=== PATIENT | female | born 1970 | race Caucasian/White ===

== ENCOUNTER 2022-10-02 15:24 | Outpatient (OUT) | payer OTHER, SELFPAY | END 2022-10-02 15:25 | LOC: VC 15:24 | PROVIDERS: PCP Radiology Diagnostic Radiology; Visit Provider Radiology Diagnostic Radiology | DX: I83.813 Varicose veins of bilateral lower extremities with pain (principal) ==

== ENCOUNTER 2023-06-27 10:33 | Outpatient (OUT) | payer OTHER, SELFPAY ==
--- NOTE | 2023-06-27 | ECG_ITS ---
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
== END 2023-06-27 10:34 | disposition home or self-care (01) ==
PROVIDERS: PCP Family Medicine
DX: Z01.810 Encounter for preprocedural cardiovascular examination (principal)
CPT/HCPCS: 93005

== ENCOUNTER 2023-09-27 20:28 | Outpatient (OUT) | payer OTHER, SELFPAY ==
--- OUTSIDE RECORDS SUMMARY | 2023-09-27 20:34 | XMS_ITS ---
Patient Summarization (C-CDA 2.1 CCD) Created on: September 27, 2023 VISHALMAGO TUTTLE : 1970 Sex: Female Author Organization Sample organization Care Team Providers Care Pyridine Recovery Operator Name Role Phone MARCIANO, DR ORTIZ Consulting Unavailable HEMELAMIN, DR ORTIZ Attending Unavailable MARCIANO, DR ORTIZ Admitting Unavailable MARCIANO, DR ORTIZ Primary Care Unavailable Negrita Bowles Unavailable Diane Marie Unavailable Marciano HOGUE, Godfrey Cade Primary Care Provider GODFREY TARIQ Primary Care Unavailab RICHARD Spears Referring Unavailable RICHARD WALKER Attending Unavailable Godfrey Tariq MD Primary Care Provider Yousif Duarte Primary Care Physician Yousif Duarte Attending Unavailable Yousif Duarte Admitting Unavailable GODFREY TARIQ Attending Unavailable GODFREY TARIQ Referring Unavailable YOUSIF DUARTE Attending Unavailable YOUSIF DUARTE Referring Unavailable YOUSIF DUARTE Attending Unavailable YOUSIF DUARTE Attending Unavailable YOUSIF DUARTE Attending Unavailable GODFREY TARIQ Attending Unavailable YOUSIF DUARTE Referring Unavailable YOUSIF DUARTE Attending Unavailable GODFREY TARIQ Attending Unavailable ASIM BRITTON Attending Unavailable ASIM BRITTON Referring Unavailable YOUSIF DUARTE Attending Unavailable GODFREY TARIQ Attending Unavailable YOUSIF DUARTE Attending Unavailable YOUSIF DUARTE Attending Unavailable YOUSIF DUARTE Attending Unavailable Allergies Allergy Classification Reported Allergen(s) Allergy Type Date of Onset Reaction(s) Facility (2 sources) Penicillins; Translations: [PENICILLINS] Drug allergy (disorder) 4 [facility] Repository (2 sources) penicillAMINE Drug Allergy Unknown Friday Other (2 sources) Penicillins Drug Allergy 7 Hives [facility] (3 sources) Amoxicillin Drug Allergy 3 Hives [facility] Healthcare (3 sources) Penicillin G Drug Allergy 3 Unknown [facility] Encounters Encounter Date Encounter Type Care Provider Facility Start: 09-07-2023 End: 09-07-2023 ambulatory YOUSIF DUARTE Not Available Start: 08-24-2023 End: 08-24-2023 ambulatory YOUSIF DUARTE Not Available Start: 08-10-2023 End: 08-10-2023 ambulatory YOUSIF DUARTE Not Available Start: 07-27-2023 End: 07-27-2023 ambulatory YOUSIF DUARTE Not Available Start: 07-17-2023 End: 07-18-2023 ambulatory ASIM BRITTON Not Available Start: 07-11-2023 End: 07-11-2023 Lab Drop off Yousif Duarte [facility] Start: 07-11-2023 End: 07-12-2023 ambulatory Yousif Duarte Facility:[facility] Start: 07-02-2023 End: 07-02-2023 ambulatory GODFREY TARIQ Not Available Start: 06-28-2023 End: 06-28-2023 ambulatory YOUSIF DUARTE Not Available Start: 06-27-2023 End: 06-28-2023 ambulatory YOUSIF DUARTE Not Available Start: 06-20-2023 End: 06-20-2023 ambulatory GODFREY TARIQ [facility] Work Phone: Start: 06-20-2023 End: 06-20-2023 Patient encounter procedure [facility] Work Phone: Start: 06-12-2023 End: 06-12-2023 ambulatory YOUSIF DUARTE Not Available Start: 06-12-2023 End: 06-12-2023 Office outpatient visit 15 minutes Yousif Duarte DPM Work Phone: [facility] Comment on above: 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); Posterior tibial tendinitis of left leg Start: 06-12-2023 Chart abstracting Yousif lin DPM Work Phone: [facility] Start: 05-30-2023 End: 05-30-2023 ambulatory YOUSIF Kang DOMO Not Available Start: 05-17-2023 End: 05-17-2023 ambulatory YOUSIF DUARTE Not Available Start: 05-10-2023 End: 05-11-2023 ambulatory YOUSIF Kang DOMO Not Available Start: 05-03-2023 End: 05-03-2023 ambulatory YOUSIF DUARTE Not Available Start: 04-26-2023 End: 04-27-2023 ambulatory GODFREY BUCKNERLAMIN Not Available Start: 04-25-2023 End: 04-25-2023 ambulatory GODFREY TARIQ Not Available Start: 04-19-2023 End: 04-19-2023 ambulatory GODFREY TARIQ Not Available Start: 07-10-2022 Telephone encounter Richard Walker MD Work Phone: Radiation Oncology Comment on above: Future Appointment; Care Coordination Start: 07-10-2022 End: 07-10-2022 ambulatory GODFRYE TARIQ Facility:[facility] Start: 07-10-2022 End: 07-10-2022 Patient encounter procedure Richard Walker MD Work Phone: Radiation Oncology Comment on above: Malignant neoplasm o f central portion of right breast in female, estrogen receptor positive (HCC) (Primary Dx) Start: 03-22-2021 End: 03-22-[address] GODFREY TARIQ Facility: Start: 03-21-2021 End: 03-21-2021 ambulatory Diane Marie Other Friday Other Start: 03-21-2021 Office outpatient vi sit 15 minutes Diane Marie [facility] Start: 03-11-2021 End: 03-11-2021 ambulatory Negrita Bowles Other Friday Other Start: 03-11-2021 Office outpatient ne w 20 minutes Negrita Bowles [facility] Immunizations Immunization Date Immunization Notes Care Provider Kiesha nieves 02-08-2015 influenza, injectabl e, quadrivalent, preservative free Yousif Duarte DPM Work Phone: [facility] 02-08-2015 influenza virus vacc ine, unspecified formulation Yousif Duarte DPM Work Phone: [facility] 05-24-2014 influenza, injectabl e, quadrivalent, contains preservative Yousif Duarte DPM Work Phone: [facility] Healthcare Medications Current Medications Medication Drug Class(es) Dates Sig (Normalized) Sig (Original) ALPRAZolam 0.25 mg oral tablet (3 sources) Benzodiazepine Start: 04-19-2023 take 1 tablet by mouth in the morning, then take 1 tablet by mouth in the evening, then take 1 tablet by mouth at bedtime ALPRAZolam (Xanax) 0.25 MG tablet Indications: Anxiety as acute reaction to exceptional stress (CMS/HCC) Take 1 tablet (0.25 mg) by mouth in the morning and 1 tablet (0.25 mg) in the evening and 1 tablet (0.25 mg) before bedtime. Do all this for 10 days. 30 tablet 0 04/19/2023 Active Ascorbic Acid (1 source) Vitamin C Vitamin C Active biotin 5 mg oral capsule (1 source) Start: 06-20-2023 take 5 mg by mouth once daily Biotin Active 5 MG PO Daily June 20, 2023 12:00am Hair Skin Nails - (2 sources) Hair Skin Nails - as directed Orally Active Multivitamin preparation (3 sources) Start: 06-20-2023 take 1 tablet by mouth once daily Multivitamin Active 1 TAB PO Daily June 20, 2023 12:00am take 1 tablet by mouth once sofi y Multivitamin - 1 tablet Orally Once a day Active Completed/Discontinued Medications Medication Drug Class(es) Dates Sig (Normalized) Sig (Original) fluorouracil 50 mg/ml topical cream (2 sources) Nucleoside Metabolic Inhibitor Fluorouracil 5 % cream Apply 1 application to affected area as needed. 0 Active Comment on above: Apply 1 application to affected area as needed. melatonin 10 mg oral capsule (2 sources) End: 07-18-2022 melatonin 10 mg cap Take by mouth. 0 07/18/2022 Discontinued (Discontinued by another Health Care Provider) Comment on above: Take by mouth. multivit-min/iron/foli c/[id number] (HAIR, SKIN AND NAILS ADVANCED ORAL) (2 sources) multivit-min/iro n /folic/mwi722 (HAIR, SKIN AND NAILS ADVANCED ORAL) Take by mouth. 0 Active Comment on above: Take by mouth. multivitamin tablet (2 sources) take 1 tablet by mouth once daily multivitamin tablet Take 1 tablet by mouth once daily. 0 Active Comment on above: Take 1 tablet by forest th once daily. Mupirocin (2 sources) RNA Synthetase Inhibitor Antibacterial Start: 12-07-2013 Bactroban 2% as directed applied topically twice a day for 10 days Nov, Not-Taking predniSONE 20 mg oral tablet (2 sources) Start: 12-07-2013 take 1 tablet by mouth every twelve hours predniSONE 20 MG 1 tablet with food or milk Orally Twice a day for 8 days Nov, Not-Taking sulfamethoxazole 800 mg / trimethoprim 160 mg oral tablet (2 sources) Dihydrofolate Reductase Inhibitor Antibacterial, Sulfonamide Antimicrobial Start: 12-07-2013 take 1 tablet by mouth every twelve hours Bactrim DS 800-160 MG 1 tablet Orally Twice a day for 10 day(s) Nov, Not-Taking VIT A/VIT C/VIT E/ZINC/COPPER (PRESERVISION AREDS ORAL) (2 sources) VIT A/VIT C/VIT E/ZINC/COPPER (PRESERVISION AREDS ORAL) Take by mouth twice daily. 0 Active Comment on above: Take by mouth twice daily. Payers Date Payer Category Payer Private Health Insurance [facility] [employer] [id number] 2022-Present [phone] [facility] [address] [place] [address] PPO [id number] 2022 Unknown [id number] 2022 Unknown [employer] [id number] 2022-Present [phone] [address] [address] [place] [address] [id number]. [id number] 1970 Unknown [id number] 2.16.840.1.893933.3.579. 2.593 1970 Unknown [id number] 2.16.840.1.051849.3.579. 2.727 1970 Unknown [id number] 2.16.840.1.460829.3.579. 2.1258 1970 Unknown [id number] 2.16.840.1.046476.3.579. 2.1258 1970 Unknown [id number] 2.16.840.1.580388.3.579. 2.1258 1968 Unknown [id number] 2.16.840.1.037283.3.579. 2.1258 1968 Unknown [id number] 2.16.840.1.530506.3.579. 2.1258 1968 Unknown [id number] 2.16.840.1.539683.3.579. 2.1258 1968 Unknown [id number] 2.16.840.1.220448.3.579. 2.1258 1968 Unknown [id number] 2.16.840.1.988771.3.579. 2.1258 1968 Unknown [id number] 2.16.840.1.733766.3.579. 2.1258 1968 Unknown [id number] 2.16.840.1.254240.3.579. 2.125 1968 Unknown [id number] 2.16.840.1.201429.3.579. 2.1258 1968 Unknown [id number] 2.16.840.1.125482.3.579. 2.1258 1968 Unknown [id number] 2.16.840.1.586632.3.579. 2.1258 1968 Unknown [id number] 2.16.840.1.592880.3.579. 2.1259 1968 Unknown [id number] 2.16.840.1.859753.3.579. 2.9 1968 Unknown [id number] 2.16.840.1.293631.3.579. 2.1259 1968 Unknown [id number] 2.16.840.1.316716.3.579. 2.9 1968 Unknown [id number] 2.16.840.1.553941.3.579. 2.1259 1959 Unknown [id number] Self-pay Self Pay [id number] Plan of Treatment Date Care Activity Detail Author Start: 06-19-2032 Screening for malign ant neoplasm of colon [facility] Start: 01-07-2025 Screening for malign ant neoplasm of cervix [facility] Start: 07-06-2023 End: 08-09-2023 Diagnostic mammography computer-aided detcj bi [facility] Radiology Routine Malignant neoplasm of central portion of right breast in female, estrogen receptor positive (HCC) Expected: 07/06/2023, Expires: 08/09/2023 [facility] Work Phone: Comment on above: Expected: 07/06/2023 , Expires: 08/09/2023 Start: 07-05-2023 Mammography MAMMOGRAM [facility] Start: 06-12-2023 End: 06-12-2023 Patient encounter procedure 06/12/2023 3:30 PM EST Office Visit [facility] [address] [place] [id number] Yousif Duarte DPM [address] [address] [facility] Start: 12-29-2022 Influenza vaccination Influenza Vacc ine (#1) [facility] Start: 04-30-2022 DEPRESSION ASSESSMENT DEPRESSION ASS ESSMENT [facility] Start: 12-29-2021 Influenza vaccination INFLUENZA (#1) [facility] Start: 10-15-2020 COVID-19 VACCINE (3 - Booster for Moderna series) COVID-19 VACCINE (3 - Booster for Moderna series) [facility] Start: 2018 SHINGRIX VACCINE (1 of 2) SHINGRIX VACCINE (1 of 2) [facility] Start: 2013 COLOGUARD (FIT-DNA) COLOGUARD (FIT-D NA) [facility] Start: 2013 Colonoscopy COLONOSCOPY [facility] Start: 2013 COLORECTAL CANCER SCREENING COLORECTAL CANCER SCREENING [facility] Start: [address] COLONOGRAPHY [facility] Start: 2013 DIABETES SCREEN DIABETES SCREEN [facility] Start: 2013 FECAL OCCULT BLOOD FECAL OCCULT BLOO D [facility] Start: 2013 LIPID SCREEN LIPID SCREEN [facility] Start: 2013 SIGMOIDOSCOPY SIGMOIDOSCOPY [facility] Start: 1998 HPV TESTING HPV TESTING [facility] Start: 1989 PAP TESTING PAP TESTING [facility] Start: 1989 Screening for malign ant neoplasm of cervix Pap Smear [facility] Start: 1987 Urine microalbumin profile DTAP,TDAP,TD (1 - Tdap) [facility] Start: 1986 HEPATITIS C SCREENING HEPATITIS C SC DUNCAN [facility] Start: 1986 HIV SCREENING HIV SCREENING [facility] Start: 1968 HEPATITIS B (1 of 3 - 3-dose series) HEPATITIS B (1 of 3 - 3-dose series) [facility] Start: 1970 Screening for malign ant neoplasm of colon [facility] Healthcare Problems Active Problems Problem Classification Problem Date Documented Date Episodic/Chronic Cancer of breast (4 sources) Malignant neoplasm of central part of female breast; Translations: [Malignant neoplasm of central portion of right female breast] Onset: 01-10-2017 01-10-2017 Chronic Immunizations and screening for infectious disease (3 sources) Encounter for immunization; Translations: [Contact with and (suspected) exposure to other viral communicable diseases] Onset: 03-21-2021 Resolved: 03-21-2021 Episodic Mood disorders (1 source) Depressive disorder; Translations: [Depression] 06-20-2023 Chronic Other acquired deformities (3 sources) Scoliosis deformity of spine; Translations: [Scoliosis, unspecified] Onset: 04-19-2023 04-19-2023 Chronic Other congenital anomalies (3 sources) Gorlin syndrome; 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, not elsewhere classified] Onset: 04-19-2023 04-19-2023 Chronic Other congenital anomalies (2 sources) Accessory left tarsal navicular bone; Translations: [Other congenital malformations of lower limb(s), including pelvic girdle] 06-12-2023 Chronic Other connective tissue disease (2 sources) Tendinitis of left posterior tibial tendon; Translations: [Posterior tibial tendinitis, left leg] 06-12-2023 Episodic Other diseases of veins and lymphatics (3 sources) Vascular insufficiency; Translations: [Venous insufficiency (chronic) (peripheral)] Onset: 04-19-2023 04-19-2023 Episodic Other lower respiratory disease (3 sources) Nodule of lung; Translations: [Solitary pulmonary nodule] Onset: 04-19-2023 04-19-2023 Episodic Other non-epithelial cancer of skin (1 source) Basal cell carcinoma of skin; Translations: [Basal cell carcinoma of skin, unspecified] 06-20-2023 Episodic Other nutritional; endocrine; and metabolic disorders (3 sources) Overweight; Translations: [Overweight] Onset: 04-19-2023 04-19-2023 Episodic Other screening for suspected conditions (not mental disorders or infectious disease) (3 sources) Mammography abnormal; Translations: [Other abnormal and inconclusive findings on diagnostic imaging of breast] Onset: 04-19-2023 04-19-2023 Episodic Residual codes; unclassified (1 source) Other specified postprocedural states; Translations: [History of lumpectomy of right breast] 06-20-2023 Episodic Viral infection (5 sources) COVID-19; Translations: [COVID-19] Onset: 03-21-2021 Resolved: 03-21-2021 Past or Other Problems Problem Classification Problem Date Documented Date Episodic/Chronic Other connective tissue disease (1 source) Pain in left finger(s) Onset: Resolved: Episodic Sprains and strains (1 source) Sprain of metacarpophalangeal joint of left index finger, initial encounter Onset: Resolved: 11-12-202 1 Episodic Procedures Date Procedure Procedure Detail Performing Clinician Start: 06-20-2023 POC COVID/FLU/RSV Start: 07-04-2022 Mammography Richard Walker MD Work Phone: Start: 06-19-2022 Colonoscopy Yousif lin DPKristin Work Phone: Results Test Name Value Interpretation Reference Range Facility Physician Orderon 07-11-2023 Physician Order [id number] #1.00TIFF Normal [facility] Physician Order [id number] #1.00TIFF Normal [facility] XR CHEST 2 VIEWSon XR CHEST 2 VIEWS CLINICAL HISTORY: pre-op COMPARISON: FINDINGS: The cardiomediastinal silhouette is unremarkable. The lungs are free of infiltrates effusions or consolidations. The bones and soft tissues are within normal limits. IMPRESSION: There are no acute cardiopulmonary changes. ELECTRONICALLY SIGNED BY: Keith Weir MD Normal Not Available Laboratory - Microbiology an d Antimicrobial susceptibilityOrdered By: Negrita Bowles on 06-20-2023 SARS-CoV-2 (COVID-19) RNA MANOJ+probe Ql (Unsp spec) [facility] MR FOOT LEFT WO IV CONTRASTo n 05-03-2023 MR FOOT LEFT WO IV CONTRAST HISTORY: Left foot pain. Concern for navicular fracture, PTT tendon tear, versus accessory navicular. TECHNIQUE: Routine MRI of the foot left COMPARISON: Radiographs 04/26/2023. RESULT: Bone Marrow: No evidence of fracture, osteomyelitis or marrow-replacing lesion. Mild prominence of the medial aspect of the navicular, which could represent small fused accessory navicular versus hypertrophy/enthesop hyte. Subcutaneous Tissues: Mild subcutaneous edema. Joints: Tibiotalar joint cartilage grossly preserved. Mild degenerative changes within the midfoot. Tendons: Mild tendinosis involving the distal posterior tibial tendon, without distinct tear, with small amount of increased fluid in the tendon sheath. Other visualized tendons appear grossly intact. Lisfranc Ligament: Intact. Plantar Aponeurosis: Mild thickening of the proximal central band, with small calcaneal enthesophyte, with chronic appearing small fragment near the origin, without tear. Muscles: Muscle bulk and signal intensity are within normal limits. Other: No other significant abnormality IMPRESSION: No evidence for fracture. Mild prominence of the medial aspect of the navicular, which could represent small effusions accessory navicular versus hypertrophy/enthesop hyte. Mild posterior tibial tendinosis, without tear. ELECTRONICALLY SIGNED BY: Charan Gaming MD Normal Not Available XR ANKLE 2 VIEWS LEFTon 12-2 XR ANKLE 2 VIEWS LEFT CLINICAL HISTORY: medial ankle pain left after catching foot. COMPARISON: NONE. LEFT ANKLE FINDINGS: There are no lytic or sclerotic bone lesions. There is no acute fracture or subluxation. There are no radiopaque foreign bodies. IMPRESSION: There are no acute osseous changes. ELECTRONICALLY SIGNED BY: Keith Weir MD Normal Not Available CNPNon 07-10-2022 CNPN Telephone (RADTSA) MAGO RODGERS ([id number]) 1970 F Date Time Provider Department 07/10/22 RICHARD WALKER During your visit today, we recorded the following information about you: Viktoria Hamilton RN 07/10/2022 11:48 AM Signed LM for Dr Tariq's office to notify them that Dr Walker is discharging patient to follow up only with their office. She is doing well and they hav been ordering her yearly mammograms. We are happy to see her anytime if issues arise or questions/concerns. Call back number left for questions/concerns. Patient is also aware of plan. Viktoria Hamilton RN Allergies As of Date: 07/10/2022 Noted Allergy Reaction PENICILLINS 01/10/2017 4 - Hives Date Reviewed: 07/10/2022 Reviewed by: Viktoria Hamilton RN - Fully Assessed Reason for Visit: Future Appointment [256] Care Coordination [3491] Prescriptions as of 07/10/2022 - multivit-min/iron/fo lic/efg351 (HAIR, SKIN AND NAILS ADVANCED ORAL) Take by mouth. - melatonin 10 mg cap Take by mouth. - VIT A/VIT C/VIT E/ZINC/COPPER (PRESERVISION AREDS ORAL) Take by mouth twice daily. - multivitamin tablet Take 1 tablet by mouth once daily. - Fluorouracil 5 % cream Apply 1 application to affected area as needed. Problem List As Of Date 07/10/2022 Noted Resolved Malignant neoplasm of central portion of right *01/10/2017 Encounter Status:Closed by VIKTORIA HAMILTON on 07/10/22 Normal [facility] COVID Quick Testingon 2020 Result Positive Friday Other XR hand LT min 3V*on 021 XR hand LT min 3V* [facility] Main [place] [address] [place] [address] XRay Report Signed Patient: Mago Rodgers MR#: [id number] : 1970 Acct:[id number] Age/Sex: 50 / F ADM Date: 03/11/21 [facility]: Type: [facility] Attending Dr: Negrita WHARTON Ordering Provider: DIO Castano Date of Service: 03/11/21 XR/XR hand LT min 3V*: LEFT HAND INJURY Copies to: DIO Castano LEFT HAND - 3 views CLINICAL DATA: Patient got index finger caught in a screen door handle yesterday and has pain at the distal second metacarpal and bruising. COMPARISON: None AP, lateral and oblique views were obtained. There is no evidence of fracture or dislocation. There are no significant soft tissue abnormalities. XR/XR hand LT min 3V* IMPRESSION: NO ACUTE BONY INJURY. Impression dictated by: Moriah Sears M.D.03/11/2021 5:05 PM Dictation Location: [place] [address] Transcribed By: [facility] 03/11/211704 Dictated By: Moriah Sears MD 03/11/211703 Signed By: 03/11/211704 [facility] XR hand LT min 3V* [facility] Friday Other XR hand LT min 3V* [facility] Main [place] Friday Other XR hand LT min 3V* [address] [facility] [employer] Other XR hand LT min 3V* [place] [address] Friday Other XR hand LT min 3V* XRay Report Friday Other XR hand LT min 3V* Signed Friday Other XR hand LT min 3V* Patient: Mago Rodgers MR#: [id number] Friday Other XR hand LT min 3V* 5847 Friday Other XR hand LT min 3V* : 1970 Acct:[id number] Friday Other XR hand LT min 3V* Age/Sex: 50 / F ADM Date: 03/11/21 Other XR hand LT min 3V* Loc: [facility] Room: Type: REG CLI Friday Other XR hand LT min 3V* Attending Dr: Negrita WHARTON Friday Other XR hand LT min 3V* Ordering Provider: DIO Castano Friday Other XR hand LT min 3V* Date of Service: 03/11/21 Other XR hand LT min 3V* XR/XR hand LT min 3V*: LEFT HAND INJURY Friday Other XR hand LT min 3V* Copies to: DIO Castano Friday Other XR hand LT min 3V* LEFT HAND - 3 views Friday Other XR hand LT min 3V* CLINICAL DATA: Patient got index finger caught in a screen door handle yesterday and has pain at Friday Other XR hand LT min 3V* the distal second metacarpal and bruising. Friday Other XR hand LT min 3V* COMPARISON: None Friday Other XR hand LT min 3V* AP, lateral and oblique views were obtained. There is no evidence of fracture or dislocation. Friday Other XR hand LT min 3V* There are no significant soft tissue abnormalities. Friday Other XR hand LT min 3V* XR/XR hand LT min 3V* Friday Other XR hand LT min 3V* IMPRESSION: Friday Other XR hand LT min 3V* NO ACUTE BONY INJURY. Friday Other XR hand LT min 3V* Impression dictated by: Moriah Sears M.D.03/11/2021 5:05 PM Friday Other XR hand LT min 3V* Dictation Location: [place] [address] Friday Other XR hand LT min 3V* Transcribed By: FAN 03/11/21 170 Friday Other XR hand LT min 3V* Dictated By: Moriah Sears MD 03/11/21 [facility] Friday Other XR hand LT min 3V* Signed By: Friday Other XR hand LT min 3V* 03/11/[address] [place] [address] [employer] Other Social History Date Type Detail Facility Start: 05-30-2023 End: 06-12-2023 Alcohol intake Ex-drinker (finding) [facility] Start: 04-25-2023 Alcohol Comment Caffeine intake: 2-3 cups per day coffee, soda/pop [facility] Start: 04-19-2023 End: 06-12-2023 Sex Assigned At [facility] Start: 04-19-2023 End: 06-20-2023 Tobacco smoking status [facility] Never smoked tobacco [facility] Start: 04-19-2023 End: 06-12-2023 History of Social function [facility] Start: 05-30-2021 Alcohol intake Current non-drinker of alcohol (finding) [facility] Start: 01-12-2017 Tobacco smoking status DCIS Ex-smoker [facility] Start: 01-12-2017 End: 04-19-2023 Tobacco use and exposure Smokeless tobacco non-user [facility] Start: 01-10-2017 Tobacco Comment quit but used to smoke socially [facility] Start: 1970 Sex [facility] [facility] Start: 1970 Sex Assigned At Female [facility] Unknown if ever smoked Friday Other End: 01-10-1997 History of tobacco use Current smoker [facility] End: 01-10-1997 History of tobacco use Cigarette Smoker [facility] Within the last year , have you been afraid of your partner or ex-partner? No [facility] Do you belong to any clubs or organizations such as voodoo groups, unions, fraternal or athletic groups, or school groups? Yes [facility] Are you now , , , , never or living with a partner? [facility] How often to you hav e a drink containing alcohol? Never [facility] How many standard dr inks containing alcohol do you have on a typical day? Patient refused [facility] Do you feel stress - tense, restless, nervous, or anxious, or unable to sleep at night because your mind is troubled all the time - these days [OSQ] Rather much [facility] (I/We) worried wheth er (my/our) food would run out before (I/we) got money to buy more. Never true [facility] Tobacco smoking status No Smokin g Status Entered [facility] Vital Signs Date Time Vital Sign Value Performing Clinician Facility 06-20-2023 16:36-0500 Body height 162.[address] [facility] 06-20-2023 16:36-0500 Body mass index (BMI) [Ratio] 28.3 kg/m2 [facility] 06-20-2023 16:36-0500 Body temperature 100.2 [degF] [facility] 06-20-2023 16:36-0500 Body weight 74.[address] [facility] 06-20-2023 16:36-0500 Diastolic blood pressure 95 mm[Hg] [facility] 06-20-2023 16:36-0500 Heart rate 93 /min [facility] 06-20-2023 16:36-0500 Respiratory rate 18 /min [facility] 06-20-2023 16:36-0500 SaO2% (BldA) [Mass fraction] 98 % [facility] 06-20-2023 16:36-0500 Systolic blood pressure 143 mm[Hg] [facility] 06-12-2023 15:27-0500 Body height 160 cm Yousif Duarte DPM Work Phone: [facility] 06-12-2023 15:27-0500 Body mass index (BMI) [Ratio] 29.41 kg/m2 Yousif Duarte DPM Work Phone: [facility] 06-12-2023 15:27-0500 Body weight 75.3 kg Yousif Duarte DPM Work Phone: [facility] 06-12-2023 15:27-0500 Diastolic blood pressure 81 mm[Hg] Yousif Duarte DPM Work Phone: [facility] 06-12-2023 15:27-0500 Heart rate 79 /min Yousif Duarte DPM Work Phone: [facility] 06-12-2023 15:27-0500 Systolic blood pressure 123 mm[Hg] Yousif Duarte DPM Work Phone: [facility] 07-10-2022 10:07-0400 Body temperature 96.69 [degF] Richard Walker MD Work Phone: [facility] 07-10-2022 10:07-0400 Body weight 78.47 kg Richard Walker MD Work Phone: [facility] 07-10-2022 10:07-0400 Diastolic blood pressure 89 mm[Hg] Richard Walker MD Work Phone: [facility] 07-10-2022 10:07-0400 Heart rate 92 /min Richard Walker MD Work Phone: [facility] 07-10-2022 10:07-0400 Respiratory rate 18 /min Richard Walker MD Work Phone: [facility] 07-10-2022 10:07-0400 SaO2% (BldA) [Mass fraction] 100 % Richard Walker MD Work Phone: [facility] 07-10-2022 10:07-0400 Systolic blood pressure 137 mm[Hg] Richard Walker MD Work Phone: [facility] 03-21-2021 12:00-0500 Body height 160.02 cm Diane Ginty Other Friday Other 03-21-2021 12:00-0500 Body temperature 100.4 [degF] Diane Ginty Other Friday Other 03-21-2021 12:00-0500 Respiratory rate 18 /min Diane Ginty Other Friday Other 03-21-2021 12:00-0500 SaO2% (BldA) [Mass fraction] 98 % Diane Ginty Other Friday Other 03-11-2021 17:05-0500 Body height 160.02 cm Negrita Bowles Other Friday Other 03-11-2021 17:05-0500 Body mass index (BMI) [Ratio] 27.63 kg/m2 Negrita Bowles Other Friday Other 03-11-2021 17:05-0500 Body temperature 98 [degF] Negrita Bowles Other Friday Other 03-11-2021 17:05-0500 Body weight 70.76 kg Negrita Bowles Other Friday Other 03-11-2021 17:05-0500 Diastolic blood pressure 85 mm[Hg] Negrita Bowles Other Friday Other 03-11-2021 17:05-0500 Respiratory rate 18 /min Negrita Bowles Other Friday Other 03-11-2021 17:05-0500 SaO2% (BldA) [Mass fraction] 100 % Negrita Bowles Other Friday Other 03-11-2021 17:05-0500 Systolic blood pressure 148 mm[Hg] Negrita Bowles Other Friday Other Clinical Notes 03-11-2021 to 06-12-2023 Yousif Duarte DPM - 06/12/2023 3:30 PM Leah Walker MD - 07/10/2022 11:52 PM EDTTelephone Encounter - Viktoria Hamilton RN - 07/10/2022 11:46 AM EDT Note Date & Type Note Facility 06-12-2023 History of Presen t illness Narrative Patient: Mago Rodgers : 1970 PCP: Godfrey Tariq MD SUBJECTIVE This is a 53 y.o. female that presents today for a follow-upof pain to the instep reason for left foot patient states that proximally 7 weeks ago she was going into the garage which point time she caught her foot on a object in the garage and twisted her foot and ankle with pain to the left foot. She points to the navicular tuberosity region and states she also has pain somewhat into the ankle region as well. She states some swelling but denies any bruising to the area and has minimal relief with anti-inflammatories and rates it up to an 8/10 on 10 pain scale. Patient has had recent MRI and also has been using a walking boot with improvement walking boot with continuous pain and presents today with and like to have surgery rescheduled as she cancel surgery in the past . Patient had intermittent steroid injection to the area with some improvement but can not wear shoe and is still painful in walking boot Patient has continued pain and would like surgical intervention Allergies: Allergies Allergen Reactions Amoxicillin Hives Penicillin G Unknown Past Medical History: Past Medical History: Diagnosis Date Abnormal chest CT Abnormal mammogram of right breast Acne Brain injury (CMS/HCC) 2014 Brain bleed-head injury COVID-19 DCIS (ductal carcinoma in situ) 11/2016 right breast 9 o'clock Depression ([facility]) Family history of cancer Fracture 1994 tailbone Fracture right foot hairline fx - navicular - sees Dr Villarreal History of breast cancer Migraine headache ([facility]) Nodule of chest wall Skin cancer 2008 Skin cancer, basal cell Medications: Current Outpatient Medications: ALPRAZolam (Xanax) 0.25 MG tablet, Take 1 tablet (0.25 mg) by mouth in the morning and 1 tablet (0.25 mg) in the evening and 1 tablet (0.25 mg) before bedtime. Do all this for 10 days., Disp: 30 tablet, Rfl: 0 Social History: Social History Socioeconomic History Marital status: Spouse name: Not on file Number of children: Not on file Years of education: Not on file Highest education level: Not on file Occupational History Not on file Tobacco Use Smoking status: Never Smokeless tobacco: Never Vaping Use Vaping Use: Never used Substance and Sexual Activity Alcohol use: Not Currently Comment: Caffeine intake: 2-3 cups per day coffee, soda/pop Drug use: Never Sexual activity: Defer Other Topics Concern Not on file Social History Narrative Not on file Social Determinants of Health Financial Resource Strain: Low Risk (04/19/2023) Overall Financial Resource Strain (CARDIA) Difficulty of Paying Living Expenses: Not hard at all Food Insecurity: No Food Insecurity (04/19/2023) Hunger Vital Sign Worried About Running Out of Food in the Last Year: Never true Ran Out of Food in the Last Year: Never true Transportation Needs: No Transportation Needs (04/19/2023) PRAPARE - Transportation Lack of Transportation (Medical): No Lack of Transportation (Non-Medical): No Physical Activity: Sufficiently Active (04/19/2023) Exercise Vital Sign Days of Exercise per Week: 3 days Minutes of Exercise per Session: 60 min Stress: Stress Concern Present (04/19/2023) [employer] [place] [employer] - Occupational Stress Questionnaire Feeling of Stress : Rather much Social Connections: Socially Integrated (04/19/2023) Social Connection and Isolation Panel [NHANES] Frequency of Communication with Friends and Family: More than three times a week Frequency of Social Gatherings with Friends and Family: Twice a week Attends Orthodox Services: 1 to 4 times per year Active Member of Clubs or Organizations: Yes Attends Club or Organization Meetings: 1 to 4 times per year Marital Status: Intimate Partner Violence: Not At Risk (04/19/2023) Humiliation, Afraid, Rape, and Kick questionnaire Fear of Current or Ex-Partner: No Emotionally Abused: No Physically Abused: No Sexually Abused: No Housing Stability: Low Risk (04/19/2023) Housing Stability Vital Sign Unable to Pay for Housing in the Last Year: No Number of Places Lived in the Last Year: 1 Unstable Housing in the Last Year: No ROS: Gastrointestinal: denies abdominal pain, ulcers, or changes in appetite or bowel habits Musculoskeletal: denies arthritis, denies loss of strength, pain to hip, knees, back Cardiovascular: denies CP, palpitations, irregular rhythms OBJECTIVE LE EXAM: DERM: Positive hair growth to b/l feet with good skin turgor noted. Negative openings in skin. Slight edema to the medial aspect of the navicular tuberosity left foot VASC: Palpable pedal pulsed b/l with warm to cool tibia to toes b/l NEURO: Gross sensation intact digits 1-10 and b/l feet ORTHO: +5/5 DF/PF/IN/EV right, +5/5 DF/PF/IN/EV left. 20 degrees inversion and 10 degrees eversion STJ b/l. Ankle ROM less than 10 degrees b/l. Positive pain on palpation to left navicular tuberosity and posterior tibial tendon plantarly near insertion of left navicular Negative pain onpalpation to the lateral ankle tibiotalar joint region and ATF ligament with negative anterior drawer with negative palpation left 5th metatarsal base XRAY: Verbal order today for x-rays be taken by staff. AP/Oblique/Lateral 3 view radiographs today of the left foot demonstrated the following: Notable HAV deformity left with suspicious appearance of left navicular tuberosity with a sagittal type fracture plane but may be accessory navicular. Reviewed x-ray two view of left ankle with negative fractures identified MRI: Negative evidence of fracture with mild prominence of the medial aspect of the navicular which could recommend small effusions accessory navicular versus hypertrophic enthesophyte with mild posterior tibial tendinosis without tear Ultrasound DIAGNOSTIC ULTRASOUND REPORT: Verbal order for ultrasound today The left navicular tuberosity and posterior tibial tendon of the left foot was examined with a 12 MHz linear probe in the transverse and sagital planes . Images obtained. FINDINGS: Ultrasound exam demonstrates capsulitis/inflammation and a hypoechoic signal at the navicular tuberosity with notable accessory navicular with hypoechoic signal IMPRESSION: Posterior tibial tendinitis with accessory navicular left ASSESSMENT 1. Accessory navicular bone of left foot 2. Posterior tibial tendinitis of left leg PLAN Patient to continue with oral anti - inflammatories as needed for pain and recommended OTC medications such as tylenol or Ibuprofen Discussed conservative and surgical treatment options for patient today including postoperative time frame and surgical procedure in detail. Patient may continue with conservative treatments including [id number] anti-inflammatories and other treatments suggested today. Patient may want to be scheduled for surgical intervention in the near future. Patient be rescheduled for a modified Kidner procedure to the left foot with tendon anchor in the near future Yousif Duarte DPM documented in this encounter [facility] 07-10-2022 History of Presen t illness Narrative Radiation Oncology - Follow Up Note PATIENT NAME: Mago Rodgers PATIENT DIAGNOSIS/PATIENT IDENTIFICATION: Ms. 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 West on 03/07/2017 (5256 cGy in 20 fractions). INTERVAL HISTORY/ROS: Ms. Rodgers returns to clinic today for routine follow-up approximately five years after the completion of her radiation treatments and one year since her last visit on 05/30/2021. In the interim, she had her yearly surveillance mammogram earlier this month on 07/04/2022 showing stable posttreatment changes in the right breast with no radiographic concern for disease in either breast (BI-RADS 2). She also notes the onset of perimenopausal symptoms since her last visit including hot flashes. Today she reports no pain/discomfort, skin irritation/breakdown, itching/swelling, any new lumps or bumps in the right breast and reports intact range of motion of the right upper extremity. She endorses good energy appetite and hydration with stable weight. She does note some weight gain but otherwise denies any recent fevers, chills, headaches, difficulty with speech/swallowing, shortness of breath, chest pain/palpitations, abdominal pain, nausea, vomiting, change in bowel/urinary habits, difficulty with gait/balance, recent falls, etc. The remainder of the review of systems was performed and was otherwise noncontributory. ALLERGIES ALLERGIES Allergen Reactions Penicillins Hives MEDICATIONS: Current Outpatient Medications: multivit-min/iron/folic/[id number] (HAIR, SKIN AND NAILS ADVANCED ORAL) VIT A/VIT C/VIT E/ZINC/COPPER (PRESERVISION AREDS ORAL) multivitamin tablet Fluorouracil 5 % cream PHYSICAL EXAM: GENERAL: middle-aged woman sitting in chair in no acute distress. VITALS: BP 137/89 Pulse 92 Temp 96.7 Resp 18 Wt 173 lb (78.5kg) SpO2 100% LMP 02/08/2017 KPS: 90 HEENT: NC/AT, anicteric sclera HEART: S1S2 LUNGS: non-labored breathing ABDOMEN: soft MUSCULOSKELETAL: no peripheral edema, moves all extremities. NEURO: no focal deficit; A&O X3. BREASTS: The patient was examined in the upright, seated position. Her incisions in the right breast are well healed with no signs of separation or underlying infection. Trace post-radiation pigment changes are noted with no areas of desquamation. No other abnormalities were identified in either breast or axilla. RADIOLOGIC DATA: Bilateral Mammogram (07/04/2022) FINDINGS: The breasts are heterogeneously dense, which may obscure small masses. Stable post therapeutic changes right breast. Nodular asymmetry in the left breast at posterior depth is stable since previous studies. Negative for malignancy. Computer-aided detection was used in the interpretation of this examination. IMPRESSION: BIRADS 2 - Benign. Normal interval follow-up in 12 months. OVERALL ASSESSMENT- BENIGN. ASSESSMENT AND PLAN: Ms. 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 West on 03/07/2017 (5256 cGy in 20 fractions). Ms. Rodgers is doing well clinically approximately five years out from the completion of her radiation treatments to the right breast for DCIS with no significant residual sequela at this time. She is both clinically and radiographically without evidence of disease based on her breast exam today as well as her bilateral mammogram from earlier this month on 07/04/2022 showing stable posttreatment changes in the right breast with no mammographic concern for disease (BI-RADS 2). After discussion, given the 5-year interval since treatment and lack of long-term radiation issues, we agreed that she will continue her breast surveillance with her primary care physician, Dr. Tariq, whom she sees routinely and have an open follow-up with us here in the radiation medicine clinic. The patient is aware to contact the clinic should any questions or concerns arise. Thank you for allowing us to participate in the care of this patient. Signed by: Richard Walker MD I spent a total of 20 minutes on the date of the service which included preparing to see the patient, [id number] patient care, and counseling and educating the patient/family/caregiver. This document has been created with the use of voice recognition technology. It may contain inaccuracies, misspellings, inaccurate syntax or inappropriate word context that are a result of the inadequacies/shortcomings of said technology/software. documented in this encounter [facility] 07-10-2022 Miscellaneous Notes Formattin g of this note might be different from the original. LM for Dr Tariq's office to notify them that Dr Walker is discharging patient to follow up only with their office. She is doing well and they hav been ordering her yearly mammograms. We are happy to see her anytime if issues arise or questions/concerns. Call back number left for questions/concerns. Patient is also aware of plan. Viktoria Hamilton RN documented in this encounter [facility] 03-21-2021 Evaluation note Encounter Date Diagnosis Assessment Notes Feb, Contact with and (suspected) exposure to other viral communicable diseases (ICD-10 - Z20.828) Feb, COVID-19 (ICD-10 - U07.1) Rapid COVID test performed in office today. Advised patient that test was positive. Instructed patient to isolate per CDC guidelines for 10 days from symptom onset. May return to work/activities outside home after isolation period as long as symptoms are improving and has been afebrile for 24 hours without use of antipyretic. Advised patient that health dept. will be in contact as results are reported to them. Advised patient that treatment of COVID is with viral supportive care OTC cold medications as directed, Tylenol/Motrin as needed for body aches/fever. Increase fluids and rest. Encouraged use of cool mist humidifier. Follow-up with PCP to advise of positive result and further management need. Immediate eval for SOB, difficulty, chest pain, fevers that do not break with antipyretic or any other concerning symptoms as reviewed on patient education handout. Patient verbalizes understanding and is agreeable to treatment plan. Patient left in stable condition Feb, Other Additional time spent conducting pre-visit phone call, screening for symptoms, instructions on social distancing, application and removal of PPE, and cleaning of examination room, equipment and supplies was preformed. Patient education given for testing methodology and results. Patient care instructions given in writting by [facility] Care At Home document Friday Other 11-12-2021 Evaluation note* Encounter Date Diagnosis Assessment Notes Treatment Notes Treatment Clinical Notes Feb, Finger pain, left (I CD-10 - M79.645) Keep your fingers rosalind taped for comfort and compression. Ice and elevate your finger is much as possible. Take Tylenol, ibuprofen, or Aleve for pain. Follow-up with your family physician if no improvement in 5-7 days. Feb, Sprain of metacarpophalangeal (MCP) joint of left index finger, initial encounter (ICD-10 - S63.651A) Feb, Other Buddying tape material was printed Friday Other Chief complaint+Reason for visit Narrative* Chief Complaint Cough, congestion Reason for Visit Contact with and (bailey spected) exposure to covid-19 [facility] [employer] Work Phone: Evaluation + Plan note No data available for this section [facility] Diagnosis Malignant neoplasm of central portion of right breast in female, estrogen receptor positive (HCC)- [facility] Accessory navicular bone of left foot- Primary Posterior tibial tendinitis of left leg [facility] Diagnosis Onset Date Resolution Status Contact with and (suspected) exposure to covid-19 noneactive [facility] [employer] Work Phone: History general Narrative - Reported* Type Description Date Medical History Depression Medical History Basal Cell Carcinoma Medical History breast cancer Surgical History 1994 Surgical History Skin cancer removed (back & ramin ek) Surgical History lumpectomy, right breast Hospitalization History See past surgical hx Friday Other Hospital Discharge instructions No data available for this section [facility] No data available for this section [facility] (narrative)* Diagnostic Procedure Only (Routine) - Pending Review Specialty Diagnoses / Procedures Referred By Contmagi t Referred To Contact [facility] Diagnoses Malignant neoplasm of central portion of right breast in female, estrogen receptor positive (HCC) Procedures [facility]ANII DIAGNOSTIC BILAT DIAGNOSTIC MAMMOGRAPHY COMPUTER-AIDED DETCJ Richard Lizarraga MD [address] [place] [address] [place] [address] [facility] [address] [place] [address] Referral ID Status Reason Start Date Expiration Date Visits Requested Visits Authorized [id number] Pending Review Auto-Generat ed Referral 07/06/2023 08/09/2023 1 1 [facility] Summary Purpose Family History No Family History Records Found Relationship Condition Age at Onset Recorded Date/T sharon father Hypertension Unknown Cerebral aneurysm Unknown Unknown family member Unknown Not Specified Diabetes mellitus Unknown Malignant neoplasm Unknown Heart disease Unknown Advance Directives No Advanced Directives Records Found Advance Directive Response Recorded Date/ Time Advance Directives No February 7:46am Additional Source Comments INFORMATION SOURCE (unrecogn ized section and content) DATE CREATED AUTHOR 03/17/2021 [facility] DATE CREATED AUTHOR AUTHOR'S ORGANIZ ATION 06/18/2021 [facility] DATE CREATED AUTHOR AUTHOR'S ORGANIZ ATION 07/11/2022 [facility] DATE CREATED AUTHOR AUTHOR'S ORGANIZ ATION 07/13/2023 [facility] DATE CREATED AUTHOR AUTHOR'S ORGANIZ ATION 09/09/2023 [facility] EPIC REASON FOR VISIT (unrecogniz ed section and content) Reason Comments Future Appointment Care Coordination Reason Comments Breast Cancer Specialty Diagnoses / Procedures Referred By Contmagi t Referred To Contact Radiation Oncology / [facility]PT[facility] Diagnoses Follow-up exam 1 Yr Follow UP Procedures REFERRAL TO [facility] FINANCIAL COUNSELOR OFFICE/OUTPATIENT ESTABLISHED HIGH MDM 40-54 MIN OFFICE/OUTPATIENT ESTABLISHED MOD MDM 30-39 MIN EST PATIENT Richard Walker MD [address] [place] [address] [place] [address] Richard Walker MD [address] [place] [address] [place] [address] Referral ID Status Reason Start Date Expiration Date V isits Requested Visits Authorized [id number] Closed Financial Clearance Required - OON Payor OON/Self Pay Override 07/10/2022 04/29/2023 1 1 Reason Comments Foot/ankle Fracture Left foot Fx Source Comments (unrecognize d section and content) In the event this informatio n is protected by the Federal Confidentiality of Alcohol and Drug Abuse Patient Records regulations: The Federal rules restrict any use of the information to criminally investigate or prosecute any alcohol or drug abuse patient.[facility] the event this information is protected by the Federal Confidentiality of Alcohol and Drug Abuse Patient Records regulations: The Federal rules restrict any use of the information to criminally investigate or prosecute any alcohol or drug abuse patient.[facility] Care Teams (unrecognized sec tion and content) Pyridine Recovery Operator Relationship Specialty Start Date End Date Godfrey Tariq MD [address] [place] [address] (Fax) PCP - General Family Medicine 01/08/17 Pyridine Recovery Operator Relationship Specialty Start Date End Date Godfrey Tariq MD [address] [place] [address] (Fax) PCP - General Family Medicine 01/08/17 [employer] Relationship Specialty Start Date End Date Godfrey Tariq MD [address] [place] [address] (Fax) PCP - General Family Medicine 09/05/22 [employer] Operator Relationship Specialty Start Date End Date Godfrey Tariq MD [address] [place] [address] PCP - General Family Medicine 09/05/22 Team Status: Active Member Role Status Dates Godfrey Tariq MD Primary Care Provider Active Team Status: Inactive Member Role Status Dates Godfrey Tariq MD Primary Care Provider Active Start: June 20, 2023 End: June 20, 2023 DONNA WattC Attending Provider Active S tart: June 20, 2023 End: June 20, 2023 Goals (unrecognized section and content) Goals may be documented in a n alternate section FOR RECORDS PERTAINING TO PATIENTS WHO ARE OR HAVE BEEN ENROLLED IN A CHEMICAL DEPENDENCY/SUBSTANCEABUSE PROGRAM, SOME INFORMATION MAY BE OMITTED. This clinical summary was aggregated from multiple sources. Caution should be exercised in using it in the provision of clinical care. This summary normalizes information from multiple sources, and as a consequence, information in this document may materially change the coding, format and clinical context of patient data. In addition, data may be omitted in some cases. CLINICAL DECISIONS SHOULD BE BASED ON THE PRIMARY CLINICAL RECORDS. [facility] [employer] [facility]. provides no warranty or guarantee of the accuracy or completeness of information in this document.
--- NOTE | 2023-09-27 20:57 | US_ITS ---
The [address] [address] Patient Name: HOLLI RODGERS MRN: [id number] date: 1970 Sex: F Assigned Patient Location: US Current Patient Location: US Accession/Order Number: [id number] Exam Date: 09/27/2023 21:09 Report Date: 09/27/2023 22:53 At the request of: FABIAN OLIVEROS Procedure: US venous doppler LE LT US venous doppler LE LT, 09/27/2023 9:09 PM EDT INDICATION: Lt foot/leg swelling w/ pain post-op foot Sx - Dariel COMPARISON: None available at the time of dictation. FINDINGS: Left lower extremity venous duplex The visualized veins of the venous system of the left lower extremity are within normal limits with regard to spontaneous flow, phasic flow, augmentation and compression. No intraluminal thrombus formation is identified. No superficial venous thrombus is present. US/US venous doppler LE LT IMPRESSION: No evidence of acute deep or superficial venous thrombosis in the left lower extremity. Electronically authenticated by: JAYLIN OVIEDO Date: 09/27/2023 22:53
== END 2023-09-27 20:29 | disposition home or self-care (01) ==
LOC: US 20:30
PROVIDERS: PCP Family Medicine
DX: I82.432 Acute embolism and thrombosis of left popliteal vein (principal)
CPT/HCPCS: 93971

== ENCOUNTER 2023-11-06 08:44 | Outpatient (OUT) | payer OTHER, SELFPAY ==
--- NOTE | 2023-11-06 | XR_ITS ---
The [address] [address] Patient Name: HOLLI RODGERS MRN: [id number] date: 1970 Sex: F Assigned Patient Location: Current Patient Location: Accession/Order Number: [id number] Exam Date: 11/06/2023 13:35 Report Date: 11/07/2023 07:12 At the request of: KACY HOOPER Procedure: XR foot LT min 3V PROCEDURE: XR foot LT min 3V COMPARISON: None. HISTORY: LEFT FOOT PAIN FINDINGS: BONES:No acute fracture or dislocation. Moderate plantar enthesopathic spurring of the calcaneus. Mild degenerative change with marginal osteophyte formation SOFT TISSUES:Negative. No visible soft tissue swelling. EFFUSION:None visible. OTHER: Negative. XR/XR foot LT min 3V IMPRESSION: Mild degenerative changes Electronically authenticated by: YOVANNY BREEN Date: 11/07/2023 07:12
== END 2023-11-06 08:45 | disposition home or self-care (01) ==
PROVIDERS: PCP Family Medicine; Visit Provider Podiatrist Foot & Ankle Surgery
DX: M79.672 Pain in left foot (principal)
CPT/HCPCS: 73630

== ENCOUNTER 2023-11-19 13:32 | Outpatient (OUT) | payer OTHER, SELFPAY ==
--- OUTSIDE RECORDS SUMMARY | 2023-11-19 13:42 | XMS_ITS | CCD ---
Author Organization [facility] Care Team Providers Care Prisoner Classification Interviewer Name Role Phone MARCIANO, DR ORTIZ Consulting Unavailable MARCIANO, DR ORTIZ Attending Unavailable MARCIANO, DR ORTIZ Admitting Unavailable MARCIANO, DR ORTIZ Primary Care Unavailable Negrita Bowles Unavailable Diane Marie Unavailable Godfrey Tariq MD Primary Care Provider GODFREY TARIQ Primary Care Unavailab RICHARD Spears Referring Unavailable RICHARD WALKER Attending Unavailable Godfrey Tariq MD Primary Care Provider Yousif Duarte Primary Care Physician [phone] Yousif Duarte Attending Unavailable Yousif Duarte Admitting Unavailable GODFREY TARIQ Attending Unavailable GODFREY TARIQ Referring Unavailable GWENDOLYN DUARTEOLAS Jorge Luis Attending Unavailable GERALD YOUSIF Jorge Luis Referring Unavailable BROWN YOUSIF Jorge Luis Attending Unavailable GERALD YOUSIF Jorge Luis Attending Unavailable GWENDOLYN DUARTEOLAS Jorge Luis Attending Unavailable GODFREY TARIQ Attending Unavailable GWENDOLYN DUARTEOLAS Jorge Luis Referring Unavailable GWENDOLYN DUARTEOLAS Jorge Luis Attending Unavailable GODFREY TARIQ Attending Unavailable DOLMARTI URIBEM R Attending Unavailable DOLRONY, ASIM R Referring Unavailable MARIZOL DUARTES Jorge Luis Attending Unavailable HEMEGODFREY KIMBLE Attending Unavailable GERALD, YOUSIF Jorge Luis Attending Unavailable BROWN, YOUSIF Jorge Luis Attending Unavailable BROWN, YOUSIF Jorge Luis Attending Unavailable BROWN, YOUSIF A Attending Unavailable BROWN, YOUSIF A Referring Unavailable BROWN, YOUSIF A Attending Unavailable BROWN, YOUSIF A Referring Unavailable BROWN YOUSIF Jorge Luis Attending Unavailable Allergies Allergy Classification Reported Allergen(s) Allergy Type Date of Onset Reaction(s) Facility (2 sources) Penicillins; Translations: [PENICILLINS] Drug allergy (disorder) 4 [facility] (2 sources) penicillAMINE Drug Allergy Unknown [facility] Other (2 sources) Penicillins Drug Allergy [facility] (3 sources) Amoxicillin Drug Allergy 3 Hives [facility] (3 sources) Penicillin G Drug Allergy 3 Unknown [facility] Healthcare Medications Current Medications Medication Drug Class(es) [...] Comment on above: Take by mouth. multivit-min/iron/foli c/cat231 (HAIR, SKIN AND NAILS ADVANCED ORAL) (2 sources) multivit-min/iro n /folic/fug636 (HAIR, SKIN AND NAILS ADVANCED ORAL) Take [...] on above: Take by mouth twice daily. Problems Active Problems Problem Classification Problem Date [...] (1 source) Pain in left finger(s) Onset: 1 Resolved: 1 Episodic Sprains and strains (1 source) Sprain of metacarpophalangeal joint of left index finger, initial encounter Onset: 1 Resolved: 1 Episodic Results Test Name Value Interpretation Reference Range Facility MR FOOT LEFT W AND WO IV CON TRASTon 10-04-2023 MR FOOT LEFT W AND WO IV CONTRAST EXAM: MR FOOT LEFT W AND WO IV CONTRAST HISTORY: Left foot navicular surgery. Continued pain. COMPARISON : Foot radiographs July 17, 2023 and MRI May 10, 2023 TECHNIQUE: Multiplanar multisequence MRI of the foot was performed without and with contrast. FINDINGS: Postsurgical changes of partial resection of the medial aspect of the navicular where there is an anchor. There is soft tissue postcontrast enhancement adjacent to the navicular without soft tissue edema or loculated fluid collection to suggest phlegmon/abscess. This soft tissue postcontrast enhancement most likely represents scar/granulation tissue. Minimal hyperintense STIR signal of the medial aspect of the navicular without corresponding hypointense T1 signal. Tibialis posterior tendon does not attach to the navicular. Near full-thickness tear of tibialis posterior tendon slip at and proximal to the attachment to the middle cuneiform. Slips extending to the second through fourth metatarsals appear intact. IMPRESSION: Tearing of the tibialis posterior tendon as detailed. Postsurgical changes without definitive findings of soft tissue abscess. Minimal bone marrow edema of the medial navicular without corresponding hypointense T1 signal is nonspecific and likely represents reactive changes however continued clinical surveillance is recommended as early osteomyelitis cannot be excluded. ELECTRONICALLY SIGNED BY: Osman Newman DO Normal Not Available Physician Orderon 07-11-2023 Physician Order [id number] #1.00TIFF Normal [facility] Physician Order [id number] #1.00TIFF Normal [facility] XR CHEST 2 VIEWSon 4 XR CHEST 2 VIEWS CLINICAL HISTORY: pre-op [...] SARS-CoV-2 (COVID-19) RNA MANOJ+probe Ql (Unsp spec) [facility] MR FOOT LEFT WO IV CONTRASTo n [...] Not Available XR ANKLE 2 VIEWS LEFTon -2 XR ANKLE 2 VIEWS LEFT CLINICAL HISTORY: medial ankle pain left after catching foot. COMPARISON: NONE. LEFT ANKLE FINDINGS: There are no lytic or sclerotic bone lesions. There is no acute fracture or subluxation. There are no radiopaque foreign bodies. IMPRESSION: There are no acute osseous changes. ELECTRONICALLY SIGNED BY: Keith Weir MD Normal Not Available [facility] 07-10-2022 [facility] Telephone (RADTSA) MAGO RODGERS ([id number]) 1970 F Date Time Provider Department 07/10/22 [...] [3491] Prescriptions as of 07/10/2022 - multivit-min/iron/fo lic/ewg915 (HAIR, SKIN AND NAILS ADVANCED ORAL) Take [...] Status:Closed by VIKTORIA HAMILTON on 07/10/22 [facility] Result Positive [facility] Other XR hand LT min 3V*on 021 XR hand LT min 3V* [facility] Main [place] [address] [place], [place] [id number] XRay Report Signed Patient: Mago Rodgers MR#: [id number] : 1970 Acct:[id number] Age/Sex: 50 / F ADM Date: 03/11/21 Loc: XDUCLY Room: Type: [facility] Attending Dr: Negrita WHARTON Ordering Provider: DIO [...] Moriah Sears M.D.03/11/2021 5:05 PM Dictation Location: [place] [address] Transcribed By: [facility] 03/11/211704 Dictated By: Moriah Sears MD 03/11/211703 Signed By: 03/11/211704 Normal [facility] XR hand LT min 3V* [facility] [employer] Other XR hand LT min 3V* [facility] [employer] Other XR hand LT min 3V* [address] [place] [address] [facility] Other XR hand LT min 3V* [place] [address] [facility] Other XR hand LT min 3V* XRay Report [facility] Other XR hand LT min 3V* Signed [facility] Other XR hand LT min 3V* Patient: Mago Rodgers MR#: [id number] [facility] Other XR hand LT min 3V* 5847 [facility] Other XR hand LT min 3V* : 1970 Acct:[id number] [facility] Other XR hand LT min 3V* Age/Sex: 50 / F ADM Date: 03/11/21 [facility] Other XR hand LT min 3V* Loc: XDUCLY Room: Type: [facility] Other XR hand LT min 3V* Attending Dr: Negrita Bowles WAITER/WAITRESS [employer] [facility] Other XR hand LT min 3V* Ordering Provider: DIO Castano [facility] Other XR hand LT min 3V* Date of Service: 03/11/21 [facility] Other XR hand LT min 3V* XR/XR hand LT min 3V*: LEFT HAND INJURY [facility] Other XR hand LT min 3V* Copies to: DIO Castano [facility] Other XR hand LT min 3V* LEFT HAND - 3 views [facility] Other XR hand LT min 3V* CLINICAL DATA: Patient got index finger caught in a screen door handle yesterday and has pain at [facility] Other XR hand LT min 3V* the distal second metacarpal and bruising. [facility] Other XR hand LT min 3V* COMPARISON: None [facility] Other XR hand LT min 3V* AP, lateral and oblique views were obtained. There is no evidence of fracture or dislocation. [facility] Other XR hand LT min 3V* There are no significant soft tissue abnormalities. [facility] Other XR hand LT min 3V* XR/XR hand LT min 3V* [facility] Other XR hand LT min 3V* IMPRESSION: [facility] Other XR hand LT min 3V* NO ACUTE BONY INJURY. [facility] Other XR hand LT min 3V* Impression dictated by: Moriah Sears M.D.03/11/2021 5:05 PM [facility] Other XR hand LT min 3V* Dictation Location: [place] [address] [facility] Other XR hand LT min 3V* Transcribed By: P[facility] 03/11/211704 [facility] [employer] Other XR hand LT min 3V* Dictated By: Moriah Sears MD 03/11/211703 [facility] [employer] Other XR hand LT min 3V* Signed By: [facility] [employer] Other XR hand LT min 3V* 03/11/211704 [facility] [employer] Other Vital Signs Date Time Vital Sign Value Performing Clinician Facility 06-20-2023 16:36-0500 Body height 162.56 cm [facility] 06-20-2023 16:36-0500 Body mass index (BMI) [Ratio] 28.3 kg/m2 [facility] 06-20-2023 16:36-0500 Body temperature 100.2 [degF] [facility] 06-20-2023 16:36-0500 Body weight 74.84 kg [facility] 06-20-2023 16:36-0500 Diastolic blood pressure 95 mm[Hg] [facility] 06-20-2023 16:36-0500 Heart rate 93 /min [facility] 06-20-2023 16:36-0500 Respiratory rate 18 /min [facility] 06-20-2023 16:36-0500 SaO2% (BldA) [Mass fraction] 98 % [facility] 06-20-2023 16:36-0500 Systolic blood pressure 143 mm[Hg] [facility] 06-12-2023 15:27-0500 Body height 160 cm Yousif Duarte DPM Work Phone: [facility] 06-12-2023 15:27-0500 Body mass index (BMI) [Ratio] 29.41 kg/m2 Yousif Duarte DPM Work Phone: [facility] 06-12-2023 15:27-0500 Body weight 75.3 kg Yousif Duarte DPM Work Phone: [facility] 06-12-2023 15:27-0500 Diastolic blood pressure 81 mm[Hg] Yousif Duarte DPM Work Phone: [facility] 06-12-2023 15:27-0500 Heart rate 79 /min Yousif Duarte DPM Work Phone: [facility] 06-12-2023 15:27-0500 Systolic blood pressure 123 mm[Hg] Yousif Duarte DPM Work Phone: [facility] 07-10-2022 10:07-0400 Body temperature 96.69 [degF] Richard Walker MD Work Phone: [facility] 07-10-2022 10:07-0400 Body weight 78.47 kg Richard Walker MD Work Phone: [facility] 07-10-2022 10:07-0400 Diastolic blood pressure 89 mm[Hg] Richard Walker MD Work Phone: [facility] 07-10-2022 10:07-0400 Heart rate 92 /min Richard Walker MD Work Phone: [facility] 07-10-2022 10:07-0400 Respiratory rate 18 /min Richard Walker MD Work Phone: [facility] 07-10-2022 10:07-0400 SaO2% (BldA) [Mass fraction] 100 % Richard Walker MD Work Phone: [facility] 07-10-2022 10:07-0400 Systolic blood pressure 137 mm[Hg] Richard Walker MD Work Phone: [facility] 03-21-2021 12:00-0500 Body height 160.02 cm Diane Ginty Other [facility] Other 03-21-2021 12:00-0500 Body temperature 100.4 [degF] Diane Ginty Other [facility] Other 03-21-2021 12:00-0500 Respiratory rate 18 /min Diane Sharitantkenyatta Other [facility] Other 03-21-2021 12:00-0500 SaO2% (BldA) [Mass fraction] 98 % Diane Sharitanty Other [facility] Other 03-11-2021 17:05-0500 Body height 160.02 cm Negrita Wrightmond Other [facility] Other 03-11-2021 17:05-0500 Body mass index (BMI) [Ratio] 27.63 kg/m2 Negrita Jelena Other [facility] Other 03-11-2021 17:05-0500 Body temperature 98 [degF] Negrita Jelena Other [facility] Other 03-11-2021 17:05-0500 Body weight 70.76 kg Negrita Jelena Other [facility] Other 03-11-2021 17:05-0500 Diastolic blood pressure 85 mm[Hg] Negrita Jelena Other [facility] Other 03-11-2021 17:05-0500 Respiratory rate 18 /min Negrita Jelena Other [facility] Other 03-11-2021 17:05-0500 SaO2% (BldA) [Mass fraction] 100 % Negrita Jelena Other [facility] Other 03-11-2021 17:05-0500 Systolic blood pressure 148 mm[Hg] Negrita Jelena Other [facility] Other Encounters Encounter Date Encounter Type Care Provider Facility Start: 10-31-2023 End: 10-31-2023 ambulatory YOUSIF A BROWN Not Available Start: 10-25-2023 End: 10-25-2023 ambulatory YOUSIF A BROWN Not Available Start: 10-04-2023 End: 10-04-2023 ambulatory YOUSIF A BROWN Not Available Start: 09-27-2023 End: 09-27-2023 ambulatory YOUSIF A BROWN Not Available Start: 09-27-2023 End: 09-27-2023 ambulatory YOUSIF A BROWN Not Available Start: 09-07-2023 End: 09-07-2023 ambulatory YOUSIF A BROWN Not Available Start: 08-24-2023 End: 08-24-2023 ambulatory YOUSIF A BROWN Not Available Start: 08-10-2023 End: 08-10-2023 ambulatory YOUSIF A BROWN Not Available Start: 07-27-2023 End: 07-27-2023 ambulatory YOUSIF A BROWN Not Available Start: 07-17-2023 End: 07-17-2023 ambulatory ASIM R TOBI Not Available Start: 07-11-2023 End: 07-11-2023 Lab Drop off Yousif A Gerald [facility] Start: 07-11-2023 End: 07-12-2023 ambulatory Yousif A Brown Facility:[facility] Start: 07-02-2023 End: 07-02-2023 ambulatory GODFREY TARIQ Not Available Start: 06-28-2023 End: 06-28-2023 ambulatory YOUSIF A BROWN Not Available Start: 06-27-2023 End: 06-27-2023 ambulatory YOUSIF A BROWN Not Available Start: 06-20-2023 End: 06-20-2023 ambulatory [facility] Work Phone: Start: 06-20-2023 End: 06-20-2023 Patient encounter procedure [facility] Work Phone: Start: 06-20-2023 End: 06-20-2023 ambulatory GODFREY TRAIQ Not Available Start: 06-12-2023 End: 06-12-2023 Office outpatient visit 15 minutes Yousif Duarte DPM Work Phone: [facility] Comment on above: 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); Posterior tibial tendinitis of left leg Start: 06-12-2023 End: 06-12-2023 ambulatory YOUSIF DUARTE Not Available Start: 06-12-2023 Chart abstracting Yousif lin DPM Work Phone: [facility] Start: 05-30-2023 End: 05-30-2023 ambulatory YOUSIF DUARTE Not Available Start: 05-17-2023 End: 05-17-2023 ambulatory YOUSIF DUARTE Not Available Start: 05-10-2023 End: 05-10-2023 ambulatory YOUSIF DUARTE Not Available Start: 05-03-2023 End: 05-03-2023 ambulatory YOUSIF DUARTE Not Available Start: 04-26-2023 End: 04-26-2023 ambulatory GODFREY TARIQ Not Available Start: 04-25-2023 End: 04-25-2023 ambulatory GODFREY TARIQ Not Available Start: 04-19-2023 End: 04-19-2023 ambulatory GODFREY TARIQ Not Available Start: 07-10-2022 Telephone encounter Richard Walker MD Work Phone: Radiation Oncology Comment on above: Future Appointment; Care Coordination Start: 07-10-2022 End: 07-10-2022 ambulatory GODFREY TARIQ Facility:[facility] Start: 07-10-2022 End: 07-10-2022 Patient encounter procedure Richard Walker MD Work Phone: Radiation Oncology Comment on above: Malignant neoplasm o f central portion of right breast in female, estrogen receptor positive (HCC) (Primary Dx) Start: 03-22-2021 End: 03-22-[address] GODFREY TARIQ Facility: Start: 03-21-2021 End: 03-21-2021 ambulatory Diane Marie Other [facility] Other Start: 03-21-2021 Office outpatient vi sit 15 minutes Diane Cynthia [facility] Start: 03-11-2021 End: 03-11-2021 ambulatory Negrita Bowles Other [facility] Other Start: 03-11-2021 Office outpatient ne w 20 minutes Negrita Bowles [facility] Procedures Date Procedure Procedure Detail Performing Clinician Start: 06-20-2023 POC COVID/FLU/RSV Start: 07-04-2022 Mammography Richard Walker MD Work Phone: Start: 06-19-2022 Colonoscopy Yousif lin DPM Work Phone: Plan of Treatment Date Care Activity Detail Author Start: 06-19-2032 Screening for malign ant neoplasm of colon [facility] Start: 01-07-2025 Screening for malign ant neoplasm of cervix [facility] Start: 07-06-2023 End: 08-09-2023 Diagnostic mammography computer-aided detcj bi [facility] Radiology Routine Malignant neoplasm of central portion of right breast in female, estrogen receptor positive (HCC) Expected: 07/06/2023, Expires: 08/09/2023 [facility] Work Phone: Comment on above: Expected: 07/06/2023 , Expires: 08/09/2023 Start: 07-05-2023 Mammography MAMMOGRAM [facility] Start: 06-12-2023 End: 06-12-2023 Patient encounter procedure 06/12/2023 3:30 PM EST Office Visit [facility] [address] [place] [phone] Yousif Duarte DPM [address] [address] [facility] Start: 12-29-2022 Influenza vaccination Influenza Vacc ine (#1) [facility] Start: 04-30-2022 DEPRESSION ASSESSMENT DEPRESSION ASS ESSMENT [facility] Start: 12-29-2021 Influenza vaccination INFLUENZA (#1) [facility] Start: 10-15-2020 COVID-19 VACCINE (3 - Booster for Moderna series) COVID-19 VACCINE (3 - Booster for Moderna series) [facility] Start: 2018 SHINGRIX VACCINE (1 of 2) SHINGRIX VACCINE (1 of 2) [facility] Start: 2013 COLOGUARD (FIT-DNA) COLOGUARD (FIT-D NA) [facility] Start: 2013 Colonoscopy COLONOSCOPY [facility] Start: 2013 COLORECTAL CANCER SCREENING COLORECTAL CANCER SCREENING [facility] Start: [address] COLONOGRAPHY [facility] Start: 2013 DIABETES SCREEN DIABETES SCREEN [facility] Start: 2013 FECAL OCCULT BLOOD FECAL OCCULT BLOO D [facility] Start: 2013 LIPID SCREEN LIPID SCREEN [facility] Start: 2013 SIGMOIDOSCOPY SIGMOIDOSCOPY [facility] Start: 1998 HPV TESTING HPV TESTING [facility] Start: 1989 PAP TESTING PAP TESTING [facility] Start: 1989 Screening for malign ant neoplasm of cervix Pap Smear [facility] Start: 1987 Urine microalbumin profile DTAP,TDAP,TD (1 - Tdap) [facility] Start: 1986 HEPATITIS C SCREENING HEPATITIS C SC DUNCAN [facility] Start: 1986 HIV SCREENING HIV SCREENING [facility] Start: 1968 HEPATITIS B (1 of 3 - 3-dose series) HEPATITIS B (1 of 3 - 3-dose series) [facility] Start: 1968 Screening for malign ant neoplasm of colon [facility] Immunizations Immunization Date Immunization Notes Care Provider Fa cility 02-08-2015 influenza, injectabl e, quadrivalent, preservative free Yousif Duarte DPM Work Phone: [facility] 02-08-2015 influenza virus vacc ine, unspecified formulation Yousif BUCKLEYM Work Phone: [facility] 05-24-2014 influenza, injectabl e, quadrivalent, contains preservative Yousif Duarte DPM Work Phone: [facility] Payers Date Payer Category Payer Private Health Insurance [facility] [employer] [id number] 2022-Present [phone] [address] [place] [address] PPO [id number] 2022 Unknown [employer] [id number] 2022-Present [phone] [address] [address] [place] [address] [id number] [id number] 2022 Unknown [id number] 1970 Unknown [id number] 2.16.840.1.050232.3.579. 2.593 1968 Unknown [id number] 2.16.840.1.606089.3.579. 2.727 1968 Unknown [id number] 2.16.840.1.806298.3.579. 2.1259 1968 Unknown [id number] 2.16.840.1.067868.3.579. 2.9 1968 Unknown [id number] 2.16.840.1.459823.3.579. 2.1259 1968 Unknown [id number] 2.16.840.1.641872.3.579. 2.1259 1968 Unknown [id number] 2.16.840.1.703597.3.579. 2.1259 1968 Unknown [id number] 2.16.840.1.015663.3.579. 2.1259 1968 Unknown [id number] 2.16.840.1.905112.3.579. 2.1259 1968 Unknown [id number] 2.16.840.1.943994.3.579. 2.1259 1968 Unknown [id number] 2.16.840.1.405101.3.579. 2.1259 1968 Unknown [id number] 2.16.840.1.297561.3.579. 2.1258 1968 Unknown [id number] 2.16.840.1.942697.3.579. 2.9 1968 Unknown [id number] 2.16.840.1.686164.3.579. 2.1258 1968 Unknown [id number] 2.16.840.1.921288.3.579. 2.1258 1968 Unknown [id number] 2.16.840.1.110615.3.579. 2.1258 1968 Unknown [id number] 2.16.840.1.013744.3.579. 2.1258 1968 Unknown [id number] 2.16.840.1.014928.3.579. 2.1258 1968 Unknown [id number] 2.16.840.1.362460.3.579. 2.1258 1968 Unknown [id number] 2.16.840.1.366006.3.579. 2.1258 1968 Unknown [id number] 2.16.840.1.933152.3.579. 2.1258 1968 Unknown [id number] 2.16.840.1.488332.3.579. 2.1258 1968 Unknown [id number] 2.16.840.1.048363.3.579. 2.1258 1968 Unknown [id number] 2.16.840.1.602770.3.579. 2.1258 1968 Unknown [id number] 2.16.840.1.629885.3.579. 2.9 1959 Unknown [id number] Self-pay Self Pay [id number] Social History Date Type Detail Facility Unknown if ever smoked [facility] Other Start: 04-19-2023 End: 06-12-2023 Sex Assigned At [facility] Start: 01-12-2017 Tobacco smoking status NHIS Ex-smoker [facility] End: 01-10-1997 History of tobacco use Current smoker [facility] End: 01-10-1997 History of tobacco use Cigarette Smoker [facility] Start: 01-12-2017 End: 04-19-2023 Tobacco use and exposure Smokeless tobacco non-user [facility] Start: 05-30-2021 Alcohol intake Current non-drinker of alcohol (finding) [facility] Start: 01-10-2017 Tobacco Comment quit but used to smoke socially [facility] Start: 1970 Sex Assigned At Not on file [facility] Start: 04-19-2023 End: 06-20-2023 Tobacco smoking status ALIS Never smoked tobacco [facility] Start: 05-30-2023 End: 06-12-2023 Alcohol intake Ex-drinker (finding) [facility] Start: 04-19-2023 End: 06-12-2023 History of Social function [facility] Within the last year , have you been afraid of your partner or ex-partner? No [facility] Do you belong to any clubs or organizations such as catholic groups, unions, fraternal or athletic groups, or [...] to buy more. 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 9 o'clock Depression ([facility]) Family history of cancer Fracture 1994 tailbone Fracture right foot hairline fx - navicular - sees Dr Villarreal History of breast cancer Migraine headache ([facility]) Nodule of chest wall Skin cancer 2009 Skin cancer, basal cell Medications: Current Outpatient [...] 60 min Stress: Stress Concern Present (04/19/2023) [employer] - Occupational Stress Questionnaire Feeling of Stress : Rather much Social Connections: Socially Integrated (04/19/2023) Social Connection and Isolation Panel [NHANES] Frequency of Communication with Friends and Family: More than three times a week Frequency of Social Gatherings with Friends and Family: Twice a week Attends Hinduism Services: 1 to 4 times per year [...] Patient may continue with conservative treatments including [id number] anti-inflammatories and other treatments suggested today. Patient may want to be scheduled for surgical intervention in the near future. Patient be rescheduled for a modified Kidner procedure to the left foot with tendon anchor in the near future Yousif Duarte DPM documented in this encounter [facility] 07-10-2022 History of Presen t illness Narrative Radiation Oncology - Follow Up Note PATIENT NAME: Mago Rodgers PATIENT DIAGNOSIS/PATIENT IDENTIFICATION: Ms. 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 This document has been created with the use of voice recognition technology. It may contain inaccuracies, misspellings, inaccurate syntax or inappropriate word context that are a result of the inadequacies/shortcomings of said technology/software. documented in this encounter [facility] 07-10-2022 Miscellaneous Notes Formattin g of this [...] Hamilton RN documented in this encounter [facility] 03-21-2021 Evaluation note Encounter Date Diagnosis Assessment [...] Patient care instructions given in writting by [facility] [facility] document [facility] Other 11-12-2021 Evaluation note* Encounter Date Diagnosis [...] Feb, Other Buddying tape material was printed SCREEMO Other Chief complaint+Reason for visit Narrative* Chief Complaint Cough, congestion Reason for Visit Contact with and (bailey spected) exposure to covid-19 [facility] Work Phone: Evaluation + Plan note No data available for this section [facility] Diagnosis Malignant neoplasm of central portion of right breast in female, estrogen receptor positive (HCC)- Primary [facility]* Diagnosis Accessory navicular bone of left foot- Primary Posterior tibial tendinitis of left [facility] Onset Date Resolution Status Contact with and (suspected) exposure to covid-19 noneactive [facility] Work Phone: History general Narrative - Reported* Type Description Date Medical History Depression Medical History Basal Cell Carcinoma Medical History breast cancer Surgical History 1994 Surgical History Skin cancer removed (back & ramin ek) Surgical History lumpectomy, right breast Hospitalization History See past surgical hx [facility] Other Hospital Discharge instructions No data available for this section [facility] data available for this section [facility] ([facility]ative[facility] Diagnostic Procedure Only (Routine) - Pending Review Specialty Diagnoses / Procedures Referred By Ally jenkins Referred To Contact [facility] Diagnoses Malignant neoplasm of central portion of right breast in female, estrogen receptor positive (HCC) Procedures DANII DIAGNOSTIC BILAT DIAGNOSTIC MAMMOGRAPHY COMPUTER-AIDED DETCJ Richard Lizarraga MD [address] [place] [address] [place] [address] [facility] [address] [place] [address] Referral ID Status Reason Start Date Expiration Date Visits Requested Visits Authorized [id number] Pending Review Auto-Generat ed Referral 07/06/2023 08/09/2023 1 1 [facility] Summary Purpose Family History No Family History [...] section and content) DATE CREATED AUTHOR 03/17/2021 [facility] DATE CREATED AUTHOR AUTHOR'S ORGANIZ ATION 06/18/2021 [facility] DATE CREATED AUTHOR AUTHOR'S ORGANIZ ATION 07/11/2022 [facility] DATE CREATED AUTHOR AUTHOR'S ORGANIZ ATION 07/13/2023 [facility] DATE CREATED AUTHOR AUTHOR'S ORGANIZ ATION 11/02/[address] [facility] dical Specialists EPIC REASON FOR VISIT (unrecogniz ed section and content) Reason Comments Future Appointment Care Coordination Reason Comments Breast Cancer Specialty Diagnoses / Procedures Referred By Ally jenkins Referred To Contact Radiation Oncology / [facility] Diagnoses Follow-up exam 1 Yr Follow UP Procedures REFERRAL TO [facility] FINANCIAL COUNSELOR OFFICE/OUTPATIENT ESTABLISHED HIGH MDM 40-54 MIN OFFICE/OUTPATIENT ESTABLISHED MOD MDM 30-39 MIN EST PATIENT Richard Walker MD [address] [facility] [facility] [place] [address] Richard Walker MD [address] [place] [address] [place] [address] Referral ID Status Reason Start Date Expiration Date V isits Requested Visits Authorized [id number] Closed Financial Clearance Required - OON Payor [...] or prosecute any alcohol or drug abuse patient.[facility] the event this information is protected by the Federal Confidentiality of Alcohol and Drug Abuse Patient Records regulations: The Federal rules restrict any use of the information to criminally investigate or prosecute any alcohol or drug abuse patient.[facility] Care Teams (unrecognized sec tion and content) Prisoner Classification Interviewer Relationship Specialty Start Date End Date Godfrey Tariq MD [address] [facility] [place] [address] PCP - General Family Medicine 01/08/17 Prisoner Classification Interviewer Relationship Specialty Start Date End Date Godfrey Tariq MD [address] [place] [address] (Fax) PCP - General Family Medicine 01/08/17 Prisoner Classification Interviewer Relationship Specialty Start Date End Date Godfrey Tariq MD [address] [place] [address] (Fax) PCP - General Family Medicine 09/05/22 Prisoner Classification Interviewer Relationship Specialty Start Date End Date Godfrey Tariq MD [address] [place] [address] (Fax) PCP - [facility] 09/05/22 Team Status: Active Member Role Status [...] BE BASED ON THE PRIMARY CLINICAL RECORDS. [email or web address] [facility]. provides no warranty or guarantee of the accuracy or completeness of information in this document.
== END 2023-11-19 13:33 | disposition home or self-care (01) ==
LOC: PST 13:33
PROVIDERS: PCP Family Medicine; Visit Provider Podiatrist Foot & Ankle Surgery
DX: Z01.818 Encounter for other preprocedural examination (principal); S86.112A Strain of other muscle(s) and tendon(s) of posterior muscle group at lower leg level, left leg, initial encounter; M21.072 Valgus deformity, not elsewhere classified, left ankle

== ENCOUNTER 2023-11-29 06:33 | Day surgery (SDC) | payer OTHER, SELFPAY ==
[2023-11-19 13:43] VITALS: BP 149/89; PULSE 69; TEMP 36.4; O2SAT 100; BMI 30.4
[2023-11-29] VITALS (11 sets, daily range): BP systolic 127–143; BP diastolic 82–93; PULSE 72–89; TEMP 36.6; O2SAT 97–100; BMI 29.9
--- NOTE | 2023-11-29 | FL_ITS ---
The [address] [address] Patient Name: HOLLI RODGERS MRN: [id number] date: 1970 Sex: F Assigned Patient Location: [facility] Current Patient Location: [facility] Accession/Order Number: [id number] Exam Date: 11/29/2023 14:04 Report Date: 12/03/2023 08:21 At the request of: KACY HOOPER Procedure: FL fluoroscopy <1hr NON-READ EXAM: FL fluoroscopy <1hr NON-READ HISTORY: TECHNIQUE: FINDINGS: Please see Operative Report. Electronically authenticated by: RADIOLOGIST NO Date: 12/03/2023 08:21
--- OUTSIDE RECORDS SUMMARY | 2023-11-29 06:36 | XMS_ITS | CCD ---
Author Organization [facility] Care Team Providers Care Principal Archaeologist Name Role Phone MARCIANO, DR ORTIZ Consulting Unavailable MARCIANO, DR ORTIZ Attending Unavailable MARCIANO, DR ORTIZ Admitting Unavailable MARCIANO, DR ORTIZ Primary Care Unavailable Negrita Bowles Unavailable Diane Marie Unavailable Godfrey Tariq MD Primary Care Provider GODFREY TARIQ Primary Care Unavailab RICHARD Spears Referring Unavailable RICHARD WALKER Attending Unavailable Godfrey Tariq MD Primary Care Provider Yousif Duarte Primary Care Physician [phone] Yousif Duarte Attending Unavailable Yousif Duarte Admitting Unavailable GODFREY TARIQ Attending Unavailable GODFREY TARIQ Referring Unavailable GWENDOLYN DUARTEOLAS Jorge Luis Attending Unavailable BROWN YOUSIF Jorge Luis Referring Unavailable BROWN YOUSIF [...] Translations: [PENICILLINS] Drug allergy (disorder) 4 [facility] Repository (2 sources) penicillAMINE Drug Allergy Unknown [facility] Other (2 sources) Penicillins Drug Allergy [facility] (3 sources) Amoxicillin Drug Allergy 3 Hives [facility] (3 sources) Penicillin G Drug Allergy 3 Unknown [facility] Healthcare Medications Current Medications Medication Drug [...] Comment on above: Take by mouth. multivit-min/iron/foli c/[id number] (HAIR, SKIN AND NAILS ADVANCED ORAL) (2 sources) multivit-min/iro n /folic/mxu136 (HAIR, SKIN AND NAILS ADVANCED ORAL) Take [...] Not Available Physician Orderon 07-11-2023 Physician Order [id number] #1.00TIFF Normal [facility] Physician Order [id number] #1.00TIFF Normal [facility] XR CHEST 2 VIEWSon 4 XR CHEST [...] SARS-CoV-2 (COVID-19) RNA MANOJ+probe Ql (Unsp spec) [facility] MR FOOT LEFT WO IV CONTRASTo [...] BY: Keith Weir MD Normal Not Available [facility] 07-10-2022 [facility] Telephone (RADTSA) MAGO RODGERS ([id number]) 1970 F Date Time Provider Department 07/10/22 [...] [3491] Prescriptions as of 07/10/2022 - multivit-min/iron/fo lic/brr905 (HAIR, SKIN AND NAILS ADVANCED ORAL) Take [...] Status:Closed by VIKTORIA HAMILTON on 07/10/[address] [facility] Result Positive [facility] Other XR hand LT min 3V*on 021 XR hand LT min 3V* [facility] Main [place] [address] [place], [place] [id number] XRay Report Signed Patient: Mago Rodgers MR#: [id number] : 1970 Acct:[id number] Age/Sex: 50 / F ADM Date: 03/11/21 Loc: XDUCLY Room: Type: [facility] Attending Dr: Negrita WHARTON Ordering Provider: DIO [...] Moriah Sears M.D.03/11/2021 5:05 PM Dictation Location: [place] [address] Transcribed By: [facility] 03/11/211704 Dictated By: Moriah Sears MD 03/11/211703 Signed By: 03/11/211704 Normal [facility] XR hand LT min 3V* [facility] [employer] [facility] Other XR hand LT min 3V* [facility] [employer] Other XR hand LT min 3V* [address] [place] [address] [facility] Other XR hand LT min 3V* [place] [address] [facility] Other XR hand LT min 3V* XRay Report [facility] Other XR hand LT min 3V* Signed [facility] Other XR hand LT min 3V* Patient: Mago Rodgers MR#: [id number] [facility] Other XR hand LT min 3V* 5847 [facility] Other XR hand LT min 3V* : 1970 Acct:[id number] [facility] Other XR hand LT min 3V* Age/Sex: 50 / F ADM Date: 03/11/21 [facility] Other XR hand LT min 3V* Loc: XDUCLY Room: Type: [facility] Other XR hand LT min 3V* Attending Dr: Negrita Bowles ON SITE PROPERTY MANAGER-C [facility] Other XR hand LT min 3V* Ordering Provider: DIO Castano [facility] Other XR hand LT min 3V* Date of Service: 03/11/21 [facility] Other XR hand LT min 3V* XR/XR hand LT min 3V*: LEFT HAND INJURY [facility] Other XR hand LT min 3V* Copies to: DIO Castano [facility] Other XR hand LT min 3V* LEFT HAND - 3 views [facility] Other XR hand LT min 3V* CLINICAL DATA: Patient got index finger caught in a screen door handle yesterday and has pain at [facility] Other XR hand LT min 3V* the distal second metacarpal and bruising. [facility] Other XR hand LT min 3V* COMPARISON: None [facility] Other XR hand LT min 3V* AP, lateral and oblique views were obtained. There is no evidence of fracture or dislocation. [facility] Other XR hand LT min 3V* There are no significant soft tissue abnormalities. [facility] Other XR hand LT min 3V* XR/XR hand LT min 3V* [facility] Other XR hand LT min 3V* IMPRESSION: [facility] Other XR hand LT min 3V* NO ACUTE BONY INJURY. [facility] Other XR hand LT min 3V* Impression dictated by: Moriah Sears M.D.03/11/2021 5:05 PM [facility] Other XR hand LT min 3V* Dictation Location: [place] [address] [facility] Other XR hand LT min 3V* Transcribed By: PWS 03/11/211704 [facility] [employer] Other XR hand LT min 3V* Dictated By: Moriah Sears MD 03/11/211703 [facility] [employer] Other XR hand LT min 3V* Signed By: [facility] [employer] Other XR hand LT min 3V* 03/11/211704 [facility] [employer] Other Vital Signs Date Time Vital Sign Value Performing Clinician Facility 06-20-2023 16:36-0500 Body height 162.56 cm [facility] 06-20-2023 16:36-0500 Body mass index (BMI) [Ratio] 28.3 kg/m2 [facility] 06-20-2023 16:36-0500 Body temperature 100.2 [degF] [facility] 06-20-2023 16:36-0500 Body weight 74.84 kg [facility] 06-20-2023 16:36-0500 Diastolic blood pressure 95 mm[Hg] [facility] 06-20-2023 16:36-0500 Heart rate 93 /min [facility] 06-20-2023 16:36-0500 Respiratory rate 18 /min [facility] 06-20-2023 16:36-0500 SaO2% (BldA) [Mass fraction] 98 % [facility] 06-20-2023 16:36-0500 Systolic blood pressure 143 mm[Hg] [facility] 06-12-2023 15:27-0500 Body height 160 cm Yousif Duarte DPM Work Phone: [facility] 06-12-2023 15:27-0500 Body mass index (BMI) [Ratio] 29.41 kg/m2 Yousif Duarte DPM Work Phone: [facility] 06-12-2023 15:27-0500 Body weight 75.3 kg Yousif Duarte DPM Work Phone: [facility] 06-12-2023 15:27-0500 Diastolic blood pressure 81 mm[Hg] Yousif Duarte DPM Work Phone: [facility] 06-12-2023 15:27-0500 Heart rate 79 /min Yousif Duarte DPM Work Phone: [facility] 06-12-2023 15:27-0500 Systolic blood pressure 123 mm[Hg] Yousif Duarte DPM Work Phone: [facility] 07-10-2022 10:07-0400 Body temperature 96.69 [degF] Richard Walker MD Work Phone: [facility] 07-10-2022 10:07-0400 Body weight 78.47 kg Richard Walker MD Work Phone: [facility] 07-10-2022 10:07-0400 Diastolic blood pressure 89 mm[Hg] Richard Walker MD Work Phone: [facility] 07-10-2022 10:07-0400 Heart rate 92 /min Richard Walker MD Work Phone: [facility] 07-10-2022 10:07-0400 Respiratory rate 18 /min Richard Walker MD Work Phone: [facility] 07-10-2022 10:07-0400 SaO2% (BldA) [Mass fraction] 100 % Richard Walker MD Work Phone: [facility] 07-10-2022 10:07-0400 Systolic blood pressure 137 mm[Hg] Richard Walker MD Work Phone: [facility] 03-21-2021 12:00-0500 Body height 160.02 cm Diane Ginty Other [facility] Other 03-21-2021 12:00-0500 Body temperature 100.4 [degF] Diane Ginty Other [facility] Other 03-21-2021 12:00-0500 Respiratory rate 18 /min Diane Sharitantkenyatta Other [facility] Other 03-21-2021 12:00-0500 SaO2% (BldA) [Mass fraction] 98 % Diane Sharitanty Other [facility] Other 03-11-2021 17:05-0500 Body height 160.02 cm Negrita Wrightmond Other [facility] Other 03-11-2021 17:05-0500 Body mass index (BMI) [Ratio] 27.63 kg/m2 Negrita Jelena Other [facility] Other 03-11-2021 17:05-0500 Body temperature 98 [degF] Negrita Jelena Other [facility] Other 03-11-2021 17:05-0500 Body weight 70.76 kg Negrita Jelena Other [facility] Other 03-11-2021 17:05-0500 Diastolic blood pressure 85 mm[Hg] Negrita Jelena Other [facility] Other 03-11-2021 17:05-0500 Respiratory rate 18 /min Negrita Jelena Other [facility] Other 03-11-2021 17:05-0500 SaO2% (BldA) [Mass fraction] 100 % Negrita Jelena Other [facility] Other 03-11-2021 17:05-0500 Systolic blood pressure 148 mm[Hg] Negrita Jelena Other [facility] Other Encounters Encounter Date Encounter Type Care [...] 07-11-2023 Lab Drop off Yousif A Gerald [facility] Start: 07-11-2023 End: 07-12-2023 ambulatory Yousif A Brown Facility:[facility] Start: 07-02-2023 End: 07-02-2023 ambulatory GODFREY TARIQ Not Available Start: 06-28-2023 End: 06-28-2023 ambulatory YOUSIF A BROWN Not Available Start: 06-27-2023 End: 06-27-2023 ambulatory YOUSIF A BROWN Not Available Start: 06-20-2023 End: 06-20-2023 ambulatory [facility] Work Phone: Start: 06-20-2023 End: 06-20-2023 Patient encounter procedure [facility] Work Phone: Start: 06-20-2023 End: 06-20-2023 ambulatory GODFREY TARIQ Not Available Start: 06-12-2023 End: 06-12-2023 Office outpatient visit 15 minutes Yousif Duarte DPM Work Phone: [facility] Comment on above: Accessory navicular bone [...] Start: 07-10-2022 End: 07-10-2022 ambulatory GODFREY TARIQ Facility:[facility] Start: 07-10-2022 End: 07-10-2022 Patient encounter procedure Richard Walker MD Work Phone: Radiation Oncology Comment on above: Malignant neoplasm o f central portion of right breast in female, estrogen receptor positive (HCC) (Primary Dx) Start: 03-22-2021 End: 03-22-[address] GODFREY TARIQ Facility: Start: 03-21-2021 End: 03-21-2021 ambulatory Diane Marie Other [facility] Other Start: 03-21-2021 Office outpatient vi sit 15 minutes Diane Cynthia [facility] Start: 03-11-2021 End: 03-11-2021 ambulatory Negrita Bowles Other [facility] Other Start: 03-11-2021 Office outpatient ne w 20 minutes Negrita Bowles [facility] Procedures Date Procedure Procedure Detail Performing Clinician Start: 06-20-2023 POC COVID/FLU/RSV Start: 07-04-2022 Mammography Richard Walker MD Work Phone: Start: 06-19-2022 Colonoscopy Yousif lin DPM Work Phone: Plan of Treatment Date Care Activity Detail Author Start: 06-19-2032 Screening for malign ant neoplasm of colon [facility] Start: 01-07-2025 Screening for malign ant neoplasm of cervix [facility] Start: 07-06-2023 End: 08-09-2023 Diagnostic mammography computer-aided detcj bi [facility] DI[facility]NO[facility] Radiology Routine Malignant neoplasm of central portion of right breast in female, estrogen receptor positive (HCC) Expected: 07/06/2023, Expires: 08/09/2023 [facility] Work Phone: Comment on above: Expected: 07/06/2023 , Expires: 08/09/2023 Start: 07-05-2023 Mammography MAMMOGRAM [facility] Start: 06-12-2023 End: 06-12-2023 Patient encounter procedure 06/12/2023 3:30 PM EST Office Visit [facility] [address] [place] [phone] Yousif Duarte DPM [address] [address] [facility] Start: 12-29-2022 Influenza vaccination Influenza Vacc ine (#1) [facility] Start: 04-30-2022 DEPRESSION ASSESSMENT DEPRESSION ASS ESSMENT [facility] Start: 12-29-2021 Influenza vaccination INFLUENZA (#1) [facility] Start: 10-15-2020 COVID-19 VACCINE (3 - Booster for Moderna series) COVID-19 VACCINE (3 - Booster for Moderna series) [facility] Start: 2018 SHINGRIX VACCINE (1 of 2) SHINGRIX VACCINE (1 of 2) [facility] Start: 2013 COLOGUARD (FIT-DNA) COLOGUARD (FIT-D NA) [facility] Start: 2013 Colonoscopy COLONOSCOPY [facility] Start: 2013 COLORECTAL CANCER SCREENING COLORECTAL CANCER SCREENING [facility] Start: [address] COLONOGRAPHY [facility] Start: 2013 DIABETES SCREEN DIABETES SCREEN [facility] Start: 2013 FECAL OCCULT BLOOD FECAL OCCULT BLOO D [facility] Start: 2013 LIPID SCREEN LIPID SCREEN [facility] Start: 2013 SIGMOIDOSCOPY SIGMOIDOSCOPY [facility] Start: 1998 HPV TESTING HPV TESTING [facility] Start: 1989 PAP TESTING PAP TESTING [facility] Start: 1989 Screening for malign ant neoplasm of cervix Pap Smear [facility] Start: 1987 Urine microalbumin profile DTAP,TDAP,TD (1 - Tdap) [facility] Start: 1986 HEPATITIS C SCREENING HEPATITIS C SC [place] [facility] Start: 1986 HIV SCREENING HIV SCREENING [facility] Start: 1968 HEPATITIS B (1 of 3 - 3-dose series) HEPATITIS B (1 of 3 - 3-dose series) [facility] Start: 1970 Screening for malign ant neoplasm of colon [facility] Immunizations Immunization Date Immunization Notes Care Provider Fa cility 02-08-2015 influenza, injectabl e, quadrivalent, preservative free Yousif Duarte DPM Work Phone: [facility] 02-08-2015 influenza virus vacc ine, unspecified formulation Yousif BUCKLEYM Work Phone: [facility] 05-24-2014 influenza, injectabl e, quadrivalent, contains preservative Yousif Duarte DPM Work Phone: [facility] Payers Date Payer Category Payer Private Health Insurance [facility] [employer] [id number] 2022-Present [phone] [address] [place] [address] PPO [id number] 2022 Unknown [employer] [id number] 2022-Present [phone] [address] [address] [place] [address] [id number]. [id number] 2022 Unknown [id number] 1970 Unknown [id number] 2.16.840.1.046773.3.579. 2.593 1968 Unknown [id number] 2.16.840.1.113219.3.579. 2.727 1968 Unknown [id number] 2.16.840.1.938763.3.579. 2.1259 1968 Unknown [id number] 2.16.840.1.998314.3.579. 2.9 1968 Unknown [id number] 2.16.840.1.080747.3.579. 2.1259 1968 Unknown [id number] 2.16.840.1.512710.3.579. 2.1259 1968 Unknown [id number] 2.16.840.1.554187.3.579. 2.1259 1968 Unknown [id number] 2.16.840.1.165257.3.579. 2.1259 1968 Unknown [id number] 2.16.840.1.133459.3.579. 2.1259 1968 Unknown [id number] 2.16.840.1.223793.3.579. 2.1259 1968 Unknown [id number] 2.16.840.1.707282.3.579. 2.1259 1968 Unknown [id number] 2.16.840.1.571535.3.579. 2.1258 1968 Unknown [id number] 2.16.840.1.354812.3.579. 2.9 1968 Unknown [id number] 2.16.840.1.127134.3.579. 2.1258 1968 Unknown [id number] 2.16.840.1.535407.3.579. 2.1258 1968 Unknown [id number] 2.16.840.1.239231.3.579. 2.1258 1968 Unknown [id number] 2.16.840.1.047444.3.579. 2.1258 1968 Unknown [id number] 2.16.840.1.801885.3.579. 2.1258 1968 Unknown [id number] 2.16.840.1.898894.3.579. 2.1258 1968 Unknown [id number] 2.16.840.1.264332.3.579. 2.1258 1968 Unknown [id number] 2.16.840.1.485582.3.579. 2.1258 1968 Unknown [id number] 2.16.840.1.628801.3.579. 2.1258 1968 Unknown [id number] 2.16.840.1.446179.3.579. 2.1258 1968 Unknown [id number] 2.16.840.1.868871.3.579. 2.1258 1968 Unknown [id number] 2.16.840.1.295464.3.579. 2.9 1959 Unknown [id number] Self-pay Self Pay [id number] Social History Date Type Detail Facility Unknown if ever smoked [facility] Other Start: 04-19-2023 End: 06-12-2023 Sex Assigned At [facility] Start: 01-12-2017 Tobacco smoking status NHIS Ex-smoker [facility] End: 01-10-1997 History of tobacco use Current smoker [facility] End: 01-10-1997 History of tobacco use Cigarette Smoker [facility] Start: 01-12-2017 End: 04-19-2023 Tobacco use and exposure Smokeless tobacco non-user [facility] Start: 05-30-2021 Alcohol intake Current non-drinker of alcohol (finding) [facility] Start: 01-10-2017 Tobacco Comment quit but used to smoke socially [facility] Start: 1970 Sex Assigned At Not on file [facility] Start: 04-19-2023 End: 06-20-2023 Tobacco smoking status DEIS Never smoked tobacco [facility] Start: 05-30-2023 End: 06-12-2023 Alcohol intake Ex-drinker (finding) [facility] Start: 04-19-2023 End: 06-12-2023 History of Social function [facility] Within the last year , have you been afraid of your partner or ex-partner? No [facility] Do you belong to any clubs or organizations such as anabaptism groups, unions, fraternal or athletic groups, or [...] Healthcare Start: 1970 Sex Assigned At Female [facility] Tobacco smoking status No Smokin g Status Entered [facility] Clinical Notes 03-11-2021 to 06-12-2023 Yousif Duarte [...] mammogram of right breast Acne Brain injury ([facility]) 2014 Brain bleed-head injury COVID-19 DCIS (ductal carcinoma in situ) 11/2016 right breast 9 o'clock Depression ([facility]) Family history of cancer Fracture 1994 tailbone Fracture right foot hairline fx - navicular - sees Dr Villarreal History of breast cancer Migraine headache ([facility]) Nodule of chest wall Skin cancer 2009 [...] 60 min Stress: Stress Concern Present (04/19/2023) [employer] - Occupational Stress Questionnaire Feeling of Stress : Rather much Social Connections: Socially Integrated (04/19/2023) Social Connection and Isolation Panel [NHANES] Frequency of Communication with Friends and Family: More than three times a week Frequency of Social Gatherings with Friends and Family: Twice a week Attends Mandaen Services: 1 to 4 times per year [...] Patient may continue with conservative treatments including dfye-rzm-exmsgal anti-inflammatories and other treatments suggested today. Patient may want to be scheduled for surgical intervention in the near future. Patient be rescheduled for a modified Kidner procedure to the left foot with tendon anchor in the near future Yousif Duarte DPM documented in this encounter [facility] 07-10-2022 History of Presen t illness Narrative Radiation Oncology - Follow Up Note PATIENT NAME: Mago Rodgers PATIENT DIAGNOSIS/PATIENT IDENTIFICATION: Ms. 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 This document has been created with the use of voice recognition technology. It may contain inaccuracies, misspellings, inaccurate syntax or inappropriate word context that are a result of the inadequacies/shortcomings of said technology/software. documented in this encounter [facility] 07-10-2022 Miscellaneous Notes Formattin g of this [...] Viktoria Hamilton RN documented in this encounter [facility] 03-21-2021 Evaluation note Encounter Date Diagnosis Assessment [...] Patient care instructions given in writting by [facility] Care At Home document [facility] Other 11-12-2021 Evaluation note* Encounter Date Diagnosis [...] Feb, Other Buddying tape material was printed [facility] Other Chief complaint+Reason for visit Narrative* Chief Complaint Cough, congestion Reason for Visit Contact with and (bailey spected) exposure to covid-19 [facility] Work Phone: Evaluation + Plan note No data available for this section [facility] Diagnosis Malignant neoplasm of central portion of right breast in female, estrogen receptor positive (HCC)- Primary [facility] this [facility] Diagnosis Accessory navicular bone of left foot- Primary Posterior tibial tendinitis of left leg [facility] Diagnosis Onset Date Resolution Status Contact with and (suspected) exposure to covid-19 noneactive [facility] Work Phone: History general Narrative - Reported* Type Description Date Medical History Depression Medical History Basal Cell Carcinoma Medical History breast cancer Surgical History 1994 Surgical History Skin cancer removed (back & ramin ek) Surgical History lumpectomy, right breast Hospitalization History See past surgical hx [facility] Other Hospital Discharge instructions No data available for this section [facility] No data available for this section [facility] for [facility] (narrative)* Diagnostic Procedure Only (Routine) - Pending Review Specialty Diagnoses / Procedures Referred By Ally jenkins Referred To Contact [facility] Diagnoses Malignant neoplasm of central portion of right breast in female, estrogen receptor positive (HCC) Procedures [facility] DIAGNOSTIC MAMMOGRAPHY COMPUTER-AIDED DETCJ Richard Lizarraga MD [address] [place] [address] [place] [address] [facility] [address] [place] [address] Referral ID Status Reason Start Date Expiration Date Visits Requested Visits Authorized [id number] Pending Review Auto-Generat ed Referral 07/06/2023 08/09/2023 1 1 [facility] Summary Purpose Family History No Family History [...] section and content) DATE CREATED AUTHOR 03/17/2021 [facility] DATE CREATED AUTHOR AUTHOR'S ORGANIZ ATION 06/18/2021 [facility] DATE CREATED AUTHOR AUTHOR'S ORGANIZ ATION 07/11/2022 [facility] DATE CREATED AUTHOR AUTHOR'S ORGANIZ ATION 07/13/2023 [facility] DATE CREATED AUTHOR AUTHOR'S ORGANIZ ATION 11/02/2023 [facility] dical Specialists EPIC REASON FOR VISIT (unrecogniz ed section and content) Reason Comments Future Appointment Care Coordination Reason Comments Breast Cancer Specialty Diagnoses / Procedures Referred By Ally jenkins Referred To Contact Radiation Oncology / [facility] [facility] Diagnoses Follow-up exam 1 Yr Follow UP Procedures REFERRAL TO [facility]CIAL [facility]SEL[facility] OFFICE/OUTPATIENT ESTABLISHED HIGH MDM 40-54 MIN OFFICE/OUTPATIENT ESTABLISHED MOD MDM 30-39 MIN EST PATIENT Richard Walker MD [address] [address] Richard Walker MD [address] [place] [address] [place] [address] Referral ID Status Reason Start Date Expiration Date V isits Requested Visits Authorized [id number] Closed Financial Clearance Required - OON Payor [...] or prosecute any alcohol or drug abuse patient.[facility] the event this information is protected by the Federal Confidentiality of Alcohol and Drug Abuse Patient Records regulations: The Federal rules restrict any use of the information to criminally investigate or prosecute any alcohol or drug abuse patient.[facility] Care Teams (unrecognized sec tion and content) Principal Archaeologist Relationship Specialty Start Date End Date Godfrey Tariq MD [address] [facility] [place] [address] PCP - General Family Medicine 01/08/17 Principal Archaeologist Relationship Specialty Start Date End Date Godfrey Tariq MD [address] [place] [address] (Fax) PCP - General Family Medicine 01/08/17 Principal Archaeologist Relationship Specialty Start Date End Date Godfrey Tariq MD [address] [place] [address] (Fax) PCP - General Family Medicine 09/05/22 Principal Archaeologist Relationship Specialty Start Date End Date Godfrey Tariq MD [address] [place] [address] (Fax) PCP - [facility] 09/05/22 Team Status: Active Member Role Status [...] BE BASED ON THE PRIMARY CLINICAL RECORDS. [facility]. provides no warranty or guarantee of the accuracy or completeness of information in this document.
[2023-11-29 06:41] LABS: Basophils Percent Auto 0.5 % (0.2-2.0); Eosinophils Absolute Auto 0.2 10^3/uL (0.0-0.7); Eosinophils Percent Auto 3.5 % (0.9-7.0); Hematocrit 40.2 % (36.0-48.0); Hemoglobin 13.3 g/dL (12.0-16.0); Immature Granulocytes Abs Auto 0.01 10^3/uL (0.00-0.03); Immature Granulocytes Pct Auto 0.2 % (0.0-0.5); Lymphocytes Absolute Auto 2.2 10^3/uL (1.2-3.8); Lymphocytes Percent Auto 33.7 % (20.5-60.0); Mean Corpuscular HGB Conc 33.1 g/dL (29.9-35.2); Mean Corpuscular Hemoglobin 30.2 pg (26.7-34.0); Mean Corpuscular Volume 91.4 fL (81.0-99.0); Mean Platelet Volume 9.5 fL (9.5-13.5); Monocytes Absolute Auto 0.6 10^3/uL (0.3-0.8); Monocytes Percent Auto 9.3 % (1.7-12.0); Neutrophils Absolute Auto 3.5 10^3/uL (1.4-6.5); Neutrophils Percent Auto 52.8 % (43.0-75.0); Platelet Count 331 10^3/uL (150-450); White Blood Count 6.5 10^3/uL (4.0-11.0)
[2023-11-29 06:59] LABS: HCG Qualitative NEGATIVE (NEGATIVE); Internal Control Within Normal Limits
[2023-11-29] MEDS: LACTATED RINGER'S SOLUTION 1,000 ML 50 ML IV ×2 (07:13→09:59)
[2023-11-29 07:17] LABS: Glucometer 100 mg/dL (74-106)
--- NOTE | 2023-11-29 08:06 | PC.NURSE ---
11/29/23 (6444) Final timeout completed. Patient placed on monitor and O2 at 2l/min via nc. Patient positioned on right side. Left leg draped in sterile technique per Jt Wood CRNA. 0750- Left popliteal site landmarked and procedure initiated. 0754- Left popliteal block completed. 0755- Patient positioned on back and left leg placed in frog position. Saphenous block initiated. 0757- Saphenous block completed. Patient tolerated it well. See posted vital signs.
[2023-11-29] MEDS: CEFAZOLIN SODIUM/DEXTROSE,ISO 2 GM/50 ML PIGGYBACK IV (08:13)
--- NOTE | 2023-11-29 10:14 | XR_ITS ---
The [address] [address] Patient Name: HOLLI RODGERS MRN: [id number] date: 1970 Sex: F Assigned Patient Location: [facility] Current Patient Location: [facility] Accession/Order Number: [id number] Exam Date: 11/29/2023 10:55 Report Date: 11/30/2023 04:44 At the request of: KACY HOOPER Procedure: XR foot LT min 3V PROCEDURE: XR foot LT min 3V HISTORY: posterior tibial tendon rupture s/p FDL transfer COMPARISON: XR foot left 11/06/2023 FINDINGS: BONES:Posterior calcaneal osteotomy and repair via 2 lag screws. Large calcaneal plantar spur. Unremarkable midfoot and forefoot at the level partially obscured by cast material. SOFT TISSUES:Small amount of free air within posterior soft tissues consistent with postoperative state. EFFUSION:None visible. OTHER: Negative. XR/XR foot LT min 3V IMPRESSION: 1. Posterior calcaneal osteotomy and repair. Electronically authenticated by: EDVIN LEDESMA Date: 11/30/2023 04:44
--- NOTE | 2023-11-29 10:15 | P.ORON_ITS ---
Brief Operative Note Date of procedure: 11/29/23 Pre-op diagnosis general: Left posterior tibial tendon rupture, hindfoot valgus Post-op diagnosis: same as pre-op Procedure: Procedure performed: Flexor digitorum longus tendon transfer and medial displacement calcaneal osteotomy, left foot Indications for procedure: Patient is a 53-year-old healthy female who injured her left foot in March 2023. She underwent treatment by Dr. Duarte which reportedly involved cam boot immobilization, rest and NSAIDs however no physical therapy. She was told that she needed to undergo surgery due to an extra bone in her left foot. According to the patient she had no foot pain prior to March and underwent excision of accessory navicular on 06/12/2023. She was nonweightbearing for roughly 6 weeks then protected weightbearing in a cam boot. Unfortunately after this procedure her pain only increased which has significantly limited her in activities of daily living. She had an MRI on 10/25/2023 which demonstrated rupture of the posterior tibial tendon. She reportedly was told that nothing was wrong with my foot. Upon consultation with me she related that she had to wear the cam boot to be able to walk at all and even with the boot she still had pain over the navicular tuberosity as well as paresthesias radiating in the tarsal tunnel and into the arch of the foot. On examination she had hindfoot valgus on the left while a rectus right foot with positive too many toes sign and was unable to perform double or single limb heel rise secondary to pain. She had pain over the navicular tuberosity is along the posterior tibial tendon as well as significant weakness on inversion. I reviewed her x-rays obtained during her consultation as well as her previously obtained MRI. Due to the significant weakness and the severity of her pain I did not feel that continued nonsurgical treatment with bracing or physical therapy would provide much benefit and that ultimately she would likely require surgery. Due to the amount of degeneration of the tendon on her MRI I was concerned for any posterior tibial tendon viability and that she would likely require a tendon transfer but if the tendon could be salvaged repair may be indicated. I explained that isolated posterior tibial tendon repair or tendon transfer is associate with high rate of recurrence especially given her hindfoot valgus which was substantial on her left foot therefore needed to be corrected as well with calcaneal osteotomy. She did have forefoot varus as well but was mild and reducible. I explained the postoperative recovery and potential risks and benefits including issues with incision healing, continued numbness tingling and paresthesias but hopeful these procedures would alleviate some stress on the tibial nerve, painful hardware, nonunion/delayed union of calcaneal osteotomy. After discussing with her family patient wished to undergo the above procedures. Intraoperative findings: Bone quality was within normal limits given patient's age and gender. Substantial hindfoot valgus was noted on the table. There was complete rupture of the posterior tibial tendon from the navicular tuberosity as well as longitudinal tearing of the posterior tibial tendon which extended to the level of the medial malleolus. The posterior tibial tendon was more than twice the normal size of what to be expected compared to a healthy posterior tibial tendon. no suture or fixation was encountered. After inspection and debridement of the posterior tibial tendon it was deemed unsalvageable therefore excised decision was made to perform tendon transfer. Slight prominence of the navicular tuberosity. Mild forefoot varus had reduced after hindfoot deformity and tendon transfer was performed. Procedures in detail: Patient was identified in preoperative holding by myself which time correct side and site were marked and consent was obtained. Regional anesthesia was administered by the anesthesia team. Preoperative antibiotics were started and the patient was brought back to the operating theater placed on table in supine position. The left lower extremity was prepped and draped with a thigh tourniquet in the usual fashion. Formal timeout was performed and the operative extremity was exsanguinated and the tourniquet was inflated. C-arm was used to identify safe incision placement over the lateral calcaneus anterior to the Achilles and plantar fascial attachments. Sharp and blunt dissection to the lateral calcaneus was performed. Sural nerve was not visualized but protected. A saw was used to create an osteotomy in line with the incision and the osteotomy was finished with an osteotome on medial cortex. A lamina commissioner of relocation services was placed inside the osteotomy to stretch soft tissues. A 2 cm incision was placed over the posterior aspect of the calcaneus and two gu idewires were drilled into the tuberosity but not across the osteotomy. The lamina commissioner of relocation services was removed and with the foot plantarflexed and the knee bent the tuberosity was translated medially. I held the tuberosity in the corrected position while I advanced the previously placed guidewires. Fluoroscopic guidance was then checked to ensure proper placement of the guidewires and it was noted there was over correction of the valgus deformity so the guide wires were backed out and the tuberosity reduced into a neutral position. The guide wires were then advanced across the osteotomy. Two 5.5 mm headless compression screws were place over the wires accordingly. Guide wires were then removed. A shelf of overhanging bone at the osteotomy site was smoothed with a rongeur and rasp. Incision was placed over the tarsal tunnel from the medial malleolus to the base of the medial cuneiform. Sharp and blunt dissection with all bleeders being coagulated gained access to the posterior tibial tendon. The posterior tibial tendon was completely ruptured from the navicular and there were longitudinal tears extending to the medial malleolus. The tendon was significantly thickened and enlarged and deemed unsalvageable therefore was excised and passed the back table to be sent as specimen. Then further dissection gained access to the flexor digitorum longus tendon which was dissected out from the medial malleolus to the plantar aspect of the navicular. With the foot held and maximum inversion the FDL tendon was cut distally. The tendon was then tubularized with a whipstitch and sized. A sagittal saw was used to remove any excess bone of the navicular tuberosity. A guidewire was placed bicortically from the plantar- medial aspect of the navicular and exited the dorsal lateral aspect of the foot via a stab incision. The tendon was sized to 4.5 mm and the navicular was reamed to 4.5 mm and to 30 mm depth as determined by the tendon size. The sutures from the FDL tendon were placed through an eyelet in the guidepin which was then removed from the dorsal lateral aspect of the foot. By pulling tension on the sutures and plantar flexing, inverting the foot the tendon was passed into the drill hole created in the navicular. While I held proper tension I placed a 4.5 mm tenodesis screw. Fixation strength was tested. Surgical site was irrigated with copious sterile saline and the incision was closed in layers. The tourniquet was deflated with a prompt hyperemic response. Dry sterile dressing and a multilayer modified Alfonso posterior splint was applied while holding the foot in slight inversion. Capillary refill was brisk and patient was transferred to the recovery room with vital signs stable. Postoperative plan: Discharge home under family's care. Keep splint clean dry and intact until follow-up which is to be scheduled for next week Strict nonweightbearing on the operative extremity Prescriptions were sent to her pharmacy Ice and elevation Call the office with any issues that may occur or the hospital who will contact me if it is after hours Will follow-up with the patient in 1 week Implants: Medline 5.5 mm cannulated headless screws (x2) & 4.5 mm tenodesis screw Anesthesia: regional and General-LMA Surgeon: rPadeep David Estimated blood loss (mL): 10 Tourniquet time (min): 60 Pathology: other (Posterior tibial tendon) Condition: stable Disposition: PACU
[2023-11-29 10:46] LABS: Glucometer 97 mg/dL (74-106)
[2023-11-29] MEDS: OXYCODONE HCL 15 MG TABLET PO (11:01)
== END 2023-11-29 12:43 | disposition home or self-care (01) ==
PROVIDERS: Anesthesiology; PCP Family Medicine; Visit Provider Podiatrist Foot & Ankle Surgery
PROC: (CPT 1470; principal; 2023-11-29 08:00)
DX: S88.112A Complete traumatic amputation at level between knee and ankle, left lower leg, initial encounter (principal); M21.072 Valgus deformity, not elsewhere classified, left ankle; M76.822 Posterior tibial tendinitis, left leg; R20.0 Anesthesia of skin; Z87.891 Personal history of nicotine dependence
CPT/HCPCS: 27691; 28300; 36415; 64445; 64450; 73630; 76000; 76942; 82948; 84703; 85025; 88304; C1713; J0690; J1100; J1885; J2250; J2405; J2704; J2795; J3010

== ENCOUNTER 2023-12-27 15:41 | Outpatient (OUT) | payer OTHER, SELFPAY ==
--- NOTE | 2023-12-27 | XR_ITS ---
The [address] [address] Patient Name: HOLLI RODGERS MRN: [id number] date: 1970 Sex: F Assigned Patient Location: Current Patient Location: Accession/Order Number: [id number] Exam Date: 12/27/2023 15:42 Report Date: 01/01/2024 15:13 At the request of: HUSAM JIMENEZ Procedure: XR foot LT min 3V EXAM: XR foot LT min 3V HISTORY: LEFT FOOT PAIN. Left flexor digitorum longus tendon transfer with medial displacement of calcaneal osteotomy. COMPARISON: 11/29/2023. TECHNIQUE: 3 views of the left foot. FINDINGS: Tarsometatarsal alignment appears preserved on this non-weightbearing study. Mild flattening of the second metatarsal head. No acute fracture is seen. Calcaneal osteotomy is visualized with 2 cannulated screws across the surgical site. No definite bony bridging is seen at this time. XR/XR foot LT min 3V IMPRESSION: 1. Postsurgical changes of the hindfoot appear unchanged. 2. No acute osseous variation is seen. Electronically authenticated by: DAVID MACDONALD Date: 01/01/2024 15:13
== END 2023-12-27 15:42 | disposition home or self-care (01) ==
LOC: EC 15:42
PROVIDERS: PCP Family Medicine; Visit Provider Physician Assistant
DX: M79.672 Pain in left foot (principal); Z98.890 Other specified postprocedural states
CPT/HCPCS: 73630

== ENCOUNTER 2024-01-11 08:00 | Outpatient (OUT) | payer OTHER, SELFPAY ==
--- NOTE | 2024-01-11 | XR_ITS ---
The [address] [address] Patient Name: HOLLI RODGERS MRN: [id number] date: 1970 Sex: F Assigned Patient Location: Current Patient Location: Accession/Order Number: [id number] Exam Date: 01/11/2024 08:25 Report Date: 01/12/2024 09:15 At the request of: KACY HOOPER Procedure: XR foot LT min 3V PROCEDURE: XR foot LT min 3V HISTORY: LEFT FOOT PAIN COMPARISON: XR foot left 12/27/2023 FINDINGS: BONES:Posterior calcaneal osteotomy and repair via 2 lag screws. No hardware fracture or loosening. Prominent calcaneal plantar spur. SOFT TISSUES:Distal dorsal soft tissue swelling. EFFUSION:None visible. OTHER: Negative. XR/XR foot LT min 3V IMPRESSION: 1. Stable surgical changes without evidence of hardware failure or change in alignment. Electronically authenticated by: EDVIN LEDESMA Date: 01/12/2024 09:15
== END 2024-01-11 08:01 | disposition home or self-care (01) ==
LOC: EC 08:01
PROVIDERS: PCP Family Medicine; Visit Provider Podiatrist Foot & Ankle Surgery
DX: M79.672 Pain in left foot (principal); Z98.890 Other specified postprocedural states
CPT/HCPCS: 73630

== ENCOUNTER 2024-02-01 08:54 | Outpatient (OUT) | payer OTHER, SELFPAY ==
--- NOTE | 2024-02-01 | XR_ITS ---
The [address] [address] Patient Name: HOLLI RODGERS MRN: [id number] date: 1970 Sex: F Assigned Patient Location: Current Patient Location: Accession/Order Number: [id number] Exam Date: 02/01/2024 08:54 Report Date: 02/03/2024 06:36 At the request of: KACY HOOPER Procedure: XR ankle LT min 3V PROCEDURE: XR ankle LT min 3V HISTORY: LEFT ANKLE PAIN COMPARISON: XR foot left 01/11/2024 FINDINGS: BONES:Calcaneal osteotomy and realignment secured with 2 lag screws; no appreciable hardware fracture loosening. No bone fracture or dislocation. Normal uniform appearance of the ankle joint. SOFT TISSUES:No visible soft tissue swelling. EFFUSION:None visible. OTHER: Negative. XR/XR ankle LT min 3V IMPRESSION: 1. Stable surgical changes without evidence of hardware failure or change in alignment. Electronically authenticated by: EDVIN LEDESMA Date: 02/03/2024 06:36
--- OUTSIDE RECORDS SUMMARY | 2024-02-01 09:14 | XMS_ITS | CCD ---
Author Organization [facility] CliniSyut Care Team Providers Care Feltmaker Name Role Phone MARCIANO, DR ORTIZ Consulting Unavailable MARCIANO, DR ORTIZ Attending Unavailable MARCIANO, DR ORTIZ Admitting Unavailable MARCIANO, DR ORTIZ Primary Care Unavailable Negrita Bowles Unavailable Diane Marie Unavailable Godfrey Tairq MD Primary Care Provider GODFREY TARIQ Primary Care Unavailab RICHARD Spears Referring Unavailable RICHARD WALKER Attending Unavailable Godfrey Tariq MD Primary Care Provider Yousif Duarte Primary Care Physician Yousif Duarte Attending Unavailable Yousif Duarte Admitting Unavailable MARKY David Attending Provider [phone] MARKY David Attending Provider Pradeep David Attending Unavailable Pradeep David Admitting Unavailable GODFREY TARIQ Attending Unavailable GODFREY TARIQ Referring Unavailable YOUSIF DUARTE Attending Unavailable YOUSIF DUARTE Referring Unavailable YOUSIF DUARTE Attending Unavailable YOUSIF DUARTE Attending Unavailable YOUSIF DUARTE Attending Unavailable GODFREY TARIQ Attending Unavailable YOUSIF DUARTE Referring Unavailable YOUSIF DUARTE Attending Unavailable GODFERY TARIQ Attending Unavailable ASIM BRITTON Attending Unavailable ASIM BRITTON Referring Unavailable YOUSIF DUARTE Attending Unavailable GODFREY TARIQ Attending Unavailable MARIZOL DUARTES Jorge Luis Attending Unavailable GWENDOLYN DUARTEOLAS Jorge Luis Attending Unavailable BROWNGWENDOLYNYOUSIF Jorge Luis Attending Unavailable BROWNGWENDOLYNYOUSIF Jorge Luis Attending Unavailable BROWN YOUSIF Jorge Luis Referring Unavailable BROWNGWENDOLYNYOUSIF Jorge Luis Attending Unavailable BROWNGWENDOLYNYOUSIF Jorge Luis Referring Unavailable BROWN YOUSIF A Attending Unavailable GODFREY TARIQ Attending Unavailable Allergies Allergy Classification Reported Allergen(s) Allergy Type Date of Onset Reaction(s) Facility (2 sources) Penicillins; Translations: [PENICILLINS] Drug allergy (disorder) 4 [facility] Repository (2 sources) penicillAMINE Drug Allergy Unknown [facility] Other (2 sources) Penicillins Drug Allergy 7 [facility] (3 sources) Amoxicillin Drug Allergy 3 [facility] (3 sources) Penicillin G Drug Allergy 3 Unknown [facility] Healthcare Medications Current Medications Medication Drug Class(es) [...] C Active biotin 5 mg oral capsule (3 sources) Start: 06-20-2023 take 5 mg by mouth once daily Biotin Active 5 MG PO Daily June 20, 2023 1:00am Hair Skin Nails - (2 sources) Hair Skin Nails - as directed Orally Active Multivitamin preparation (5 sources) Start: 06-20-2023 take 1 tablet by mouth once daily Multivitamin Active 1 TAB PO Daily June 20, 2023 1:00am Start: 06-20-2023 take 1 tablet by forest th once daily Multivitamin Active 1 TAB PO Daily June 20, 2023 12:00am take 1 tablet by forest th once daily Multivitamin - 1 tablet Orally Once a day Active oseltamivir 75 mg oral capsule (2 sources) Neuraminidase Inhibitor Start: 06-20-2023 take 1 capsule by mouth twice daily Oseltamivir (Tamiflu) 75 mg capsule Active 75 MG PO Twice daily 10 5 May 21st, 2024 1:00am Completed/Discontinued Medications Medication Drug Class(es) Dates Sig [...] Comment on above: Take by mouth. multivit-min/iron/foli c/[id number] (HAIR, SKIN AND NAILS ADVANCED ORAL) (2 sources) multivit-min/iro n /folic/tfn556 (HAIR, SKIN AND NAILS ADVANCED ORAL) Take by mouth. 0 Active Comment on above: Take by mouth. multivitamin tablet (2 sources) take 1 tablet by mouth once daily multivitamin tablet Take 1 tablet by mouth once daily. 0 Active Comment on above: Take 1 tablet by forest once daily. Mupirocin (2 sources) RNA Synthetase [...] Date Documented Date Episodic/Chronic Cancer of breast (6 sources) Malignant neoplasm of central part of female breast; Translations: [Malignant neoplasm of central portion of right female breast] Onset: 01-10-2017 01-10-2017 Chronic Immunizations and screening for infectious disease (3 sources) Encounter for immunization; Translations: [Contact with and (suspected) exposure to other viral communicable diseases] Onset: 03-21-2021 Resolved: 03-21-2021 Episodic Mood disorders (3 sources) Depressive disorder; Translations: [Depression] 06-20-2023 Chronic Other [...] 04-19-2023 Episodic Other non-epithelial cancer of skin (3 sources) Basal cell carcinoma of skin; Translations: [Basal cell carcinoma of skin, unspecified] 06-20-2023 Episodic Other nutritional; endocrine; and metabolic disorders (3 sources) Overweight; Translations: [Overweight] Onset: 04-19-2023 04-19-2023 Episodic Other screening for suspected conditions (not mental disorders or infectious disease) (3 sources) Mammography abnormal; Translations: [Other abnormal and inconclusive findings on diagnostic imaging of breast] Onset: 04-19-2023 04-19-2023 Episodic Residual codes; unclassified (3 sources) Other specified postprocedural states; Translations: [History of [...] Test Name Value Interpretation Reference Range Facility [facility] 11-29-2023 L Specimen: [id number] Received: 11/29/23 Status: EMIL Hung Num: [id number] Spec Type: Surgical Subm Dr: Pradeep David DPM, MS Tissues: A Tendon/Sheath (LT POSTERIOR TIBIAL TENDON) Procedures: HE, Gross/Micro L3 Age/ Patient Sex Location Account Attending Physician Mago Rodgers 53/F LABELL [id number] Pradeep David DPM, MS SPEC NUM: [id number] RECD: 11/29/23 STATUS: EMIL HUNG NUM: [id number] ELIZA: 11/29/[address]: Pradeep David DPM, MS ENTERED: 11/29/[address] [facility] [address]: Carrie Vieira SPEC TYPE: Surgical DEPT: GLEN SAVAGE ORDERED: HE, Gross/Micro L3 ORDERED: HE, Gross/Micro L3 Pathological Diagnosis Left posterior tibial tendon, excision: -And elongated segment of tenosynovial soft tissue with apparent focal irregular nodular thickening with the mildly associated chondroid metaplasia, consistent with underlying chronic irritative and/or traumatic injury with the associated reactive and/or reparative changes of the involved or stretched tendinous fragment, otherwise without secondary infection, or significant chronic inflammation observed Clinical Information Strain of muscles and tendon posterior muscle group left lower leg, valgus deformity left ankle. Gross Description Received in formalin labeled with the patient's name, date of and posterior tibial tendon is a 3.4 x 1.2 x 0.9 cm portion of gross-white fibrous tissue. Cut sections reveal unremarkable fibrous surfaces. Opthalmic Tech sections are submitted in A1. TW Specimen: [id number] Received: 11/29/23 Status: EMIL Hung Num: [id number] Spec Type: Surgical Subm Dr: Pradeep David,MARKY, MS Tissues: A Tendon/Sheath (LT POSTERIOR TIBIAL TENDON) Procedures: BJORN Gross/Anjelica L3 Patient: Mago Rodgers [id number] (Continued) Specimen: [id number] Received: 11/29/23 (Continued) Signed (signature on file) Serene Encarnacion MD 12/03/23 1053 Specimen: [id number] Received: 11/29/23 Status: EMIL Hung Num: [id number] Spec Type: Surgical Subm Dr: Pradeep David DPM, MS Tissues: A Tendon/Sheath (LT POSTERIOR TIBIAL TENDON) Procedures: Peter MILAN/Anjelica L3 Patient: Mago Rodgers Hoa [id number] (Continued) Specimen: [id number] Received: 11/29/23 (Continued) Microscopic Description Microscopic examinations are performed CPT Codes 95922 Specimen: [id number] Received: 11/29/23 Status: EMIL Hung Num: [id number] Spec Type: Surgical Subm Dr: Pradeep David DPM, MS Tissues: A Tendon/Sheath (LT POSTERIOR TIBIAL TENDON) Procedures: HE, Gross/Micro L3 Patient: Mago Rodgers Hoa [id number] (Continued) Signed (signature on file) Serene Encarnacion MD 12/03/23 1053 Normal [facility] MR FOOT LEFT W AND WO IV [...] Not Available Physician Orderon 07-11-2023 Physician Order [id number] #1.00TIFF Normal [facility] Physician Order [id number] #1.00TIFF Normal [facility] XR CHEST 2 VIEWSon XR CHEST 2 [...] SARS-CoV-2 (COVID-19) RNA MANOJ+probe Ql (Unsp spec) [facility] MR FOOT LEFT WO IV CONTRASTo [...] CNPNon 07-10-2022 CNPN Telephone (RADTSA) MAGO RODGERS ([id number]) 1970 F Date Time Provider Department 07/10/22 [...] for Visit: Future Appointment [256] Care Coordination [9058] Prescriptions as of 07/10/2022 - multivit-min/iron/fo lic/nwu877 (HAIR, SKIN AND NAILS ADVANCED ORAL) Take [...] VIKTORIA HAMILTON on 07/10/22 Normal [facility] COVID Quick Testingon 2020 Result Positive [facility] Other XR hand LT min 3V*on 021 XR hand LT min 3V* [facility] [employer] Other XR hand LT min 3V* [facility] Other XR hand LT min 3V* [address] [place] [address] [facility] Other XR hand LT min 3V* [place] [address] [facility] Other XR hand LT min 3V* XRay Report [facility] Other XR hand LT min 3V* Signed [facility] Other XR hand LT min 3V* Patient: Mago Rodgers MR#: [id number] [facility] Other XR hand LT min 3V* 5847 [facility] Other XR hand LT min 3V* : 1970 Acct:[id number] [facility] Other XR hand LT min 3V* Age/Sex: 50 / F ADM Date: 03/11/21 [facility] Other XR hand LT min 3V* Loc: X[facility]CLY Room: Type: [facility] Other XR hand LT min 3V* Attending Dr: Negrita THOMPSONC [facility] Other XR hand LT min 3V* Ordering Provider: DIO Castano [facility] Other XR hand LT min 3V* Date of Service: 03/11/21 [facility] Other XR hand LT min 3V* XR/XR hand LT min 3V*: LEFT HAND INJURY [facility] Other XR hand LT min 3V* Copies to: DIO Castano [facility] Other XR hand LT min 3V* LEFT HAND - 3 views [facility] Other XR hand LT min 3V* CLINICAL DATA: Patient got index finger caught in a screen door handle yesterday and has pain at [facility] Other XR hand LT min 3V* the distal second metacarpal and bruising. [facility] Other XR hand LT min 3V* COMPARISON: None [facility] Other XR hand LT min 3V* AP, lateral and oblique views were obtained. There is no evidence of fracture or dislocation. [facility] Other XR hand LT min 3V* There are no significant soft tissue abnormalities. [facility] Other XR hand LT min 3V* XR/XR hand LT min 3V* [facility] Other XR hand LT min 3V* IMPRESSION: [facility] Other XR hand LT min 3V* NO ACUTE BONY INJURY. [facility] Other XR hand LT min 3V* Impression dictated by: Moriah Sears M.D.03/11/2021 5:05 PM [facility] Other XR hand LT min 3V* Dictation Location: [place] [address] [facility] Other XR hand LT min 3V* Transcribed By: PWS 03/11/21 170 [facility] Other XR hand LT min 3V* Dictated By: Moriah Sears MD 03/11/211703 [facility] Other XR hand LT min 3V* Signed By: [facility] Other XR hand LT min 3V* 03/11/211704 [facility] Other Vital Signs Date Time Vital Sign Value Performing Clinician Facility 06-20-2023 16:36-0500 Body height 162.56 cm [facility] 06-20-2023 16:36-0500 Body mass index (BMI) [Ratio] 28.3 kg/m2 [facility] 06-20-2023 16:36-0500 Body temperature 100.2 [degF] [facility] 06-20-2023 16:36-0500 Body weight 74.84 kg [facility] 06-20-2023 16:36-0500 Diastolic blood pressure 95 mm[Hg] [facility] 06-20-2023 16:36-0500 Heart rate 93 /min [facility] 06-20-2023 16:36-0500 Respiratory rate 18 /min [facility] 06-20-2023 16:36-0500 SaO2% (BldA) [Mass fraction] 98 % [facility] 06-20-2023 16:36-0500 Systolic blood pressure 143 mm[Hg] [facility] 06-12-2023 15:27-0500 Body height 160 cm Yousif Duarte DPM Work Phone: [facility] 06-12-2023 15:27-0500 Body mass index (BMI) [Ratio] 29.41 kg/m2 Yousif Duarte DPM Work Phone: [facility] 06-12-2023 15:27-0500 Body weight 75.3 kg Yousif Duarte DPM Work Phone: [facility] 06-12-2023 15:27-0500 Diastolic blood pressure 81 mm[Hg] Yousif Duarte DPM Work Phone: [facility] 06-12-2023 15:27-0500 Heart rate 79 /min Yousif Duarte DPM Work Phone: [facility] 06-12-2023 15:27-0500 Systolic blood pressure 123 mm[Hg] Yousif Duarte DPM Work Phone: [facility] 07-10-2022 10:07-0400 Body temperature 96.69 [degF] Richard Walker MD Work Phone: [facility] 07-10-2022 10:07-0400 Body weight 78.47 kg Richard Walker MD Work Phone: [facility] 07-10-2022 10:07-0400 Diastolic blood pressure 89 mm[Hg] Richard Walker MD Work Phone: [facility] 07-10-2022 10:07-0400 Heart rate 92 /min Richard Walker MD Work Phone: [facility] 07-10-2022 10:07-0400 Respiratory rate 18 /min Richard Walker MD Work Phone: [facility] 07-10-2022 10:07-0400 SaO2% (BldA) [Mass fraction] 100 % Richard Walker MD Work Phone: [facility] 07-10-2022 10:07-0400 Systolic blood pressure 137 mm[Hg] Richard Walker MD Work Phone: [facility] 03-21-2021 12:00-0500 Body height 160.02 cm Diane Ginty Other [facility] Other 03-21-2021 12:00-0500 Body temperature 100.4 [degF] Diane Ginty Other [facility] Other 03-21-2021 12:00-0500 Respiratory rate 18 /min Diane Sharitaeufemia Other [facility] Other 03-21-2021 12:00-0500 SaO2% (BldA) [Mass fraction] 98 % Diane Sheriffserakenyatta Other [facility] Other 03-11-2021 17:05-0500 Body height 160.02 cm Negrita Jelena Other [facility] Other 03-11-2021 17:05-0500 Body mass index (BMI) [Ratio] 27.63 kg/m2 Negrita Jelena Other [facility] Other 03-11-2021 17:05-0500 Body temperature 98 [degF] Negrita Jelena Other [facility] Other 03-11-2021 17:05-0500 Body weight 70.76 kg Negrita Jelena Other [facility] Other 03-11-2021 17:05-0500 Diastolic blood pressure 85 mm[Hg] Negrita Jelena Other [facility] Other 03-11-2021 17:05-0500 Respiratory rate 18 /min Negrita Jelena Other [facility] Other 03-11-2021 17:05-0500 SaO2% (BldA) [Mass fraction] 100 % Negrita Jelena Other [facility] Other 03-11-2021 17:05-0500 Systolic blood pressure 148 mm[Hg] Negrita Jelena Other [facility] Other Encounters Encounter Date Encounter Type Care Provider Facility Start: 01-02-2024 End: 01-02-2024 ambulatory GODFREY TARIQ Not Available Start: 11-29-2023 End: 11-29-2023 [facility]ulatory [facility] Work Phone: Start: 11-29-2023 End: 11-29-2023 Departed Referred DPM Pradeep David Work Phone: [facility] Start: 11-28-2023 End: 11-28-2023 ambulatory DPM Pradeep David Work Phone: [facility] Work Phone: Start: 11-28-2023 End: 11-28-2023 Departed Referred DPM Pradeep David Work Phone: [facility] Start: 10-31-2023 End: 10-31-2023 ambulatory YOUSIF A [...] Available Start: 07-17-2023 End: 07-17-2023 ambulatory ASIM BRITTON Not Available Start: 07-11-2023 End: 07-11-2023 Lab Drop off Yousif A Brown [facility] Start: 07-11-2023 End: 07-12-2023 ambulatory Yousif Duarte [place] Start: 07-02-2023 End: 07-02-2023 ambulatory EDSHARA BUCKNERYER Not Available Start: 06-28-2023 End: 06-28-2023 ambulatory YOUSIF DUARTE Not Available Start: 06-27-2023 End: 06-27-2023 ambulatory YOUSIF Jorge Luis DUARTE Not Available Start: 06-20-2023 End: 06-20-[address] [facility] Work Phone: Start: 06-20-2023 End: 06-20-2023 Patient encounter procedure [facility] Work Phone: Start: 06-20-2023 End: 06-20-2023 ambulatory GODFREY BUCKNERYER Not Available Start: 06-12-2023 End: 06-12-2023 Office outpatient visit 15 minutes Yousif Duarte DPM Work Phone: [facility] Comment on above: 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); Posterior tibial tendinitis of left leg Start: 06-12-2023 End: 06-12-2023 ambulatory YOUSIF DUARTE Not Available Start: 06-12-2023 Chart abstracting Yousif lin DPM Work Phone: [facility] Start: 05-30-2023 End: 05-30-2023 ambulatory YOUSIF DUARTE Not Available Start: 05-17-2023 End: 05-17-2023 ambulatory YOUSIF A BROWN Not Available Start: 05-10-2023 End: 05-10-2023 ambulatory YOUSIF Jorge Luis DUARTE Not Available Start: 05-03-2023 End: 05-03-2023 ambulatory YOUSIF A BROWN Not Available Start: 04-26-2023 End: 04-26-2023 ambulatory EDSHARA J SITAYER Not Available Start: 04-25-2023 End: 04-25-2023 ambulatory EDSHARA Camara HEMEYER Not Available Start: 04-19-2023 End: 04-19-2023 ambulatory EDSHARA J HEMEYER Not Available Start: 07-10-2022 Telephone encounter Richard Walker MD Work Phone: Radiation Oncology Comment on above: Future Appointment; Care Coordination Start: 07-10-2022 End: 07-10-2022 ambulatory GODFREY TARIQ Facility:[facility] Start: 07-10-2022 End: 07-10-2022 Patient encounter procedure Richard Walker MD Work Phone: [facility] Comment on above: Malignant neoplasm o f central portion of right breast in female, estrogen receptor positive (HCC) (Primary Dx) Start: 03-22-2021 End: 03-22-[address] GODFREY TARIQ Facility: Start: 03-21-2021 End: 03-21-2021 ambulatory Diane Ginty Other [facility] Other Start: 03-21-2021 Office outpatient vi sit 15 minutes Diane Ginty [facility] Start: 03-11-2021 End: 03-11-2021 ambulatory Negrita Jelena Other [facility] Other Start: 03-11-2021 Office outpatient ne w 20 minutes Negrita Jelena [facility] Procedures Date Procedure Procedure Detail Performing Clinician Start: 06-20-2023 POC COVID/FLU/RSV Start: 07-04-2022 Mammography Richard Walker MD Work Phone: Start: 06-19-2022 Colonoscopy Yousif lin DPM Work Phone: Plan of Treatment Date Care Activity Detail Author Start: 06-19-2032 Screening for malign ant neoplasm of colon [facility] Start: 01-07-2025 Screening for malign ant neoplasm of cervix [facility] Start: 07-06-2023 End: 08-09-2023 Diagnostic mammography computer-aided detcj bi [facility] Radiology Routine Malignant neoplasm of central portion of right breast in female, estrogen receptor positive (HCC) Expected: 07/06/2023, Expires: 08/09/2023 [facility] Work Phone: Comment on above: Expected: 07/06/2023 , Expires: 08/09/2023 Start: 07-05-2023 Mammography MAMMOGRAM [facility] Start: 06-12-2023 End: 06-12-2023 Patient encounter procedure 06/12/2023 3:30 PM EST Office Visit [facility] [address] [place] [id number] Yousif Duarte DPM [address] [address] [facility] Start: 12-29-2022 Influenza vaccination Influenza Vacc ine (#1) [facility] Start: 04-30-2022 DEPRESSION ASSESSMENT DEPRESSION ASS ESSMENT [facility] Start: 12-29-2021 Influenza vaccination INFLUENZA (#1) [facility] Start: 10-15-2020 COVID-19 VACCINE (3 - Booster for Moderna series) COVID-19 VACCINE (3 - Booster for Moderna series) [facility] Start: 2018 SHINGRIX VACCINE (1 of 2) SHINGRIX VACCINE (1 of 2) [facility] Start: 2013 COLOGUARD (FIT-DNA) COLOGUARD (FIT-D NA) [facility] Start: 2013 Colonoscopy COLONOSCOPY [facility] Start: 2013 COLORECTAL CANCER SCREENING COLORECTAL CANCER SCREENING [facility] Start: [address] COLONOGRAPHY [facility] Start: 2013 DIABETES SCREEN DIABETES SCREEN [facility] Start: 2013 FECAL OCCULT BLOOD FECAL OCCULT BLOO D [facility] Start: 2013 LIPID SCREEN LIPID SCREEN [facility] Start: 2013 SIGMOIDOSCOPY SIGMOIDOSCOPY [facility] Start: 1998 HPV TESTING HPV TESTING [facility] Start: 1989 PAP TESTING PAP TESTING [facility] Start: 1989 Screening for malign ant neoplasm of cervix Pap Smear [facility] Start: 1987 Urine microalbumin profile DTAP,TDAP,TD (1 - Tdap) [facility] Start: 1986 HEPATITIS C SCREENING HEPATITIS C SC REENING [facility] Start: 1986 HIV SCREENING HIV SCREENING [facility] Start: 1968 HEPATITIS B (1 of 3 - 3-dose series) HEPATITIS B (1 of 3 - 3-dose series) [facility] Start: 1968 Screening for malign ant neoplasm of colon [facility] Immunizations Immunization Date Immunization Notes Care Provider Kiesah starkjesika 02-08-2015 influenza, injectabl e, quadrivalent, preservative free Yousif Duarte DPM Work Phone: [facility] 02-08-2015 influenza virus vacc ine, unspecified formulation Yousif Duarte DPM Work Phone: [facility] 05-24-2014 influenza, injectabl e, quadrivalent, contains preservative Yousif Duarte DPM Work Phone: [facility] Payers Date Payer Category Payer Private Health Insurance [facility] [employer] GENERIC [id number] 2022-Present [id number] [address] PPO [id number] 2022 Unknown [employer] [id number] 2022-Present [phone] [address] [address] [place] [address] [id number] 2022 Unknown [id number] 1970 Unknown [id number] 2.16.840.1.831035.3.579. 2.593 1968 Unknown [id number] 2.16.840.1.939242.3.579. 2.727 1968 Unknown [id number] 2.16.840.1.128601.3.579. 2.1259 1968 Unknown [id number] 2.16.840.1.797428.3.579. 2.1259 1968 Unknown [id number] 2.16.840.1.661361.3.579. 2.1258 1968 Unknown [id number] 2.16.840.1.771253.3.579. 2.1258 1968 Unknown [id number] 2.16.840.1.905091.3.579. 2.1258 1968 Unknown [id number] 2.16.840.1.987982.3.579. 2.1258 1968 Unknown [id number] 2.16.840.1.411797.3.579. 2.1258 1968 Unknown [id number] 2.16.840.1.613327.3.579. 2.1258 1968 Unknown [id number] 2.16.840.1.972348.3.579. 2.1258 1968 Unknown [id number] 2.16.840.1.335375.3.579. 2.1258 1968 Unknown [id number] 2.16.840.1.638513.3.579. 2.1258 1968 Unknown [id number] 2.16.840.1.665935.3.579. 2.1258 1968 Unknown [id number] 2.16.840.1.265006.3.579. 2.1258 1968 Unknown [id number] 2.16.840.1.660693.3.579. 2.1258 1968 Unknown [id number] 2.16.840.1.761977.3.579. 2.1258 1968 Unknown [id number] 2.16.840.1.183442.3.579. 2.1258 1968 Unknown [id number] 2.16.840.1.741720.3.579. 2.1258 1968 Unknown [id number] 2.16.840.1.378225.3.579. 2.1258 1968 Unknown [id number] 2.16.840.1.545285.3.579. 2.1259 1968 Unknown [id number] 2.16.840.1.920537.3.579. 2.9 1968 Unknown [id number] 2.16.840.1.164556.3.579. 2.9 1968 Unknown [id number] 2.16.840.1.639098.3.579. 2.9 1968 Unknown [id number] 2.16.840.1.964469.3.579. 2.9 1968 Unknown [id number] 2.16.840.1.912562.3.579. 2.9 1959 Unknown [id number] Self-pay Self Pay [id number] Social History Date Type Detail Facility Unknown if ever smoked [facility] Other Start: 04-19-2023 End: 06-12-2023 Sex Assigned At [facility] Start: 01-12-2017 Tobacco smoking status ALIS Ex-smoker [facility] End: 01-10-1997 History of tobacco use Current smoker [facility] End: 01-10-1997 History of tobacco use Cigarette Smoker [facility] Start: 01-12-2017 End: 04-19-2023 Tobacco use and exposure Smokeless tobacco non-user [facility] Start: 05-30-2021 Alcohol intake Current non-drinker of alcohol (finding) [facility] Start: 01-10-2017 Tobacco Comment quit but used to smoke socially [facility] Start: 1970 Sex Assigned At Not on file [facility] Start: 04-19-2023 End: 06-20-2023 Tobacco smoking status ALIS Never smoked tobacco [facility] Start: 05-30-2023 End: 06-12-2023 Alcohol intake Ex-drinker (finding) [facility] Start: 04-19-2023 End: 06-12-2023 History of Social function [facility] Within the last year , have you been afraid of your partner or ex-partner? 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 9 o'clock Depression (CMS/HCC) Family history of cancer Fracture 1994 tailbone Fracture right foot hairline fx - navicular - sees Dr Villarreal History of breast cancer Migraine headache ([facility]) Nodule of chest wall Skin cancer 2009 [...] 60 min Stress: Stress Concern Present (04/19/2023) [employer] - Occupational Stress Questionnaire Feeling of Stress : Rather much Social Connections: Socially Integrated (04/19/2023) Social Connection and Isolation Panel [NHANES] Frequency of Communication with Friends and Family: More than three times a week Frequency of Social Gatherings with Friends and Family: Twice a week Attends [employer] Services: 1 to 4 times per year [...] Patient may continue with conservative treatments including [id number] anti-inflammatories and other treatments suggested today. Patient may want to be scheduled for surgical intervention in the near future. Patient be rescheduled for a modified Kidner procedure to the left foot with tendon anchor in the near future Yousif Duarte DPM documented in this encounter [facility] 07-10-2022 History of Presen t illness Narrative Radiation Oncology - Follow Up Note PATIENT NAME: Mago Rodgers PATIENT DIAGNOSIS/PATIENT IDENTIFICATION: Ms. 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 This document has been created with the use of voice recognition technology. It may contain inaccuracies, misspellings, inaccurate syntax or inappropriate word context that are a result of the inadequacies/shortcomings of said technology/software. documented in this encounter [facility] 07-10-2022 Miscellaneous Notes Formattin g of this [...] Viktoria Hamilton RN documented in this encounter [facility] 03-21-2021 Evaluation note Encounter Date Diagnosis Assessment [...] care instructions given in writting by [facility] Care At Home document [employer] Other 11-12-2021 Evaluation note* Encounter Date Diagnosis [...] Feb, Other Buddying tape material was printed [employer] Other Chief complaint+Reason for visit Narrative* Chief Complaint Cough, congestion Reason for Visit Contact with and (bailey spected) exposure to covid-19 [facility] Work Phone: Evaluation + Plan note No data available for this section [facility] Diagnosis Malignant neoplasm of central portion of right breast in female, estrogen receptor positive (HCC)- Primary [facility] Accessory navicular bone of left foot- Primary Posterior tibial tendinitis of left leg documented in this encounter [facility] HealthcareEvaluation note* Diagnosis Onset Date Resolution Status Contact with and (suspected) exposure to covid-19 noneactive [facility] Work Phone: Evaluation noteNo assessment information available [facility] Work Phone: History general Narrative - Reported* Type Description Date Medical History Depression Medical History Basal Cell Carcinoma Medical History breast cancer Surgical History Tail[place]1994 Surgical History Skin cancer removed (back & ramin ek) Surgical History lumpectomy, right breast Hospitalization History See past surgical hx [facility] Other Hospital Discharge instructions No data available for this section [facility] No data available for this section [facility] (narrative)* Diagnostic Procedure Only (Routine) - Pending Review Specialty Diagnoses / Procedures Referred By Contac t Referred To Contact [facility] Diagnoses Malignant neoplasm of central portion of right breast in female, estrogen receptor positive (HCC) Procedures [facility] DIAGNOSTIC MAMMOGRAPHY COMPUTER-AIDED DETCJ Richard Lizarraga MD [address] [place] [address] [place] [address] [facility] [address] [place] [address] Referral ID Status Reason Start Date Expiration Date Visits Requested Visits Authorized [id number] Pending Review Auto-Generat ed Referral 07/06/2023 08/09/2023 1 1 [facility] Summary Purpose Family History No Family History Records Found Relationship Condition Age at Onset Recorded Date/T sharon father Hypertension Unknown Cerebral aneurysm Unknown Unknown family member Unknown Not Specified Diabetes mellitus Unknown Malignant neoplasm Unknown Heart disease Unknown Relationship Condition Age at Onset Recorded Date/T sharon father Hypertension Unknown Cerebral aneurysm Unknown Unknown family member Unknown mother Diabetes mellitus Unknown Malignant neoplasm Unknown Heart disease Unknown Advance Directives No Advanced Directives Records Found Advance Directive Response Recorded Date/ Time Advance Directives No February 7:46am Advance Directive Response Recorded Date/ Time Advance Directives No May 5:27pm Additional Source Comments INFORMATION SOURCE (unrecogn ized section and content) DATE CREATED AUTHOR 06/18/2021 [facility] DATE CREATED AUTHOR AUTHOR'S ORGANIZ ATION 07/11/2022 [facility] DATE CREATED AUTHOR AUTHOR'S ORGANIZ ATION 07/13/2023 Dang [facility] DATE CREATED AUTHOR AUTHOR'S ORGANIZ ATION 12/04/2023 [facility] DATE CREATED AUTHOR AUTHOR'S ORGANIZ ATION 01/04/2024 [facility] EPIC REASON FOR VISIT (unrecogniz ed section and content) Reason Comments Future Appointment Care Coordination Reason Comments Breast Cancer Specialty Diagnoses / Procedures Referred By Contac t Referred To Contact Radiation Oncology / [facility] Diagnoses Follow-up exam 1 Yr Follow UP Procedures REFERRAL TO [facility] FINANCIAL COUNSELOR OFFICE/OUTPATIENT ESTABLISHED HIGH MDM 40-54 MIN OFFICE/OUTPATIENT ESTABLISHED MOD MDM 30-39 MIN EST PATIENT Richard Walker MD [address] [place] [address] [place] [address] Richard Walker MD [address] [place] [address] [place] [address] Referral ID Status Reason Start Date Expiration Date V isits Requested Visits Authorized [id number] Closed Financial Clearance Required - OON Payor [...] or prosecute any alcohol or drug abuse patient.[facility] the event this information is protected by the Federal Confidentiality of Alcohol and Drug Abuse Patient Records regulations: The Federal rules restrict any use of the information to criminally investigate or prosecute any alcohol or drug abuse patient.[facility] Care Teams (unrecognized sec tion and content) Feltmaker Relationship Specialty Start Date End Date Godfrey Tariq MD [address] [place] [address] (Fax) PCP - General Family Medicine 01/08/17 Feltmaker Relationship Specialty Start Date End Date Godfrey Tariq MD [address] [place] [address] (Fax) PCP - General Family Medicine 01/08/17 Feltmaker Relationship Specialty Start Date End Date Godfrey Tariq MD [address] [place] [address] (Fax) PCP - General Family Medicine 09/05/22 Feltmaker Relationship Specialty Start Date End Date Godfrey Tariq MD [address] [place] [address] (Fax) PCP - General Family Medicine 09/05/22 Team Status: Active Member Role Status Dates Godfrey Tariq MD Primary Care Provider Active Team Status: Inactive Member Role Status Dates Godfrey Tariq MD Primary Care Provider Active Start: June 20, 2023 End: June 20, 2023 DIO Watt Attending Provider Active S tart: June 20, 2023 End: June 20, 2023 Team Status: Inactive Member Role Status Dates Pradeep David DPM MS Attending Provider Active Start: November 28, 2023 End: November 28, 2023 Team Status: Inactive Member Role Status Dates Pradeep David DPM MS Attending Provider Active Start: November 29, 2023 End: November 29, 2023 Goals (unrecognized section and content) Goals [...] BE BASED ON THE PRIMARY CLINICAL RECORDS. [employer] provides no warranty or guarantee of the accuracy or completeness of information in this document.
== END 2024-02-01 08:55 | disposition home or self-care (01) ==
LOC: EC 08:54
PROVIDERS: PCP Family Medicine; Visit Provider Podiatrist Foot & Ankle Surgery
DX: M25.572 Pain in left ankle and joints of left foot (principal); Z98.890 Other specified postprocedural states
CPT/HCPCS: 73610

== ENCOUNTER 2024-02-27 11:41 | Outpatient (OUT) | payer OTHER, SELFPAY ==
--- NOTE | 2024-02-27 | XR_ITS ---
The [address] [address] Patient Name: HOLLI RODGERS MRN: [id number] date: 1970 Sex: F Assigned Patient Location: [facility] Current Patient Location: Accession/Order Number: [id number] Exam Date: 02/27/2024 11:45 Report Date: 02/28/2024 07:33 At the request of: HUSAM JIMENEZ Procedure: XR foot LT min 3V PROCEDURE: XR foot LT min 3V, XR ankle LT min 3V COMPARISON: Multiple prior comparisons the latest 02/01/2024 HISTORY: LEFT FOOT PAIN FINDINGS: BONES:Stable posterior calcaneal osteotomy transfixed with 2 screws. There is partial bony bridging along the cranial margin of the osteotomy with incomplete bony bridging along the mid to caudal portion. Enthesopathic spurring plantar calcaneus. Mild stable degenerative changes with marginal osteophyte formation. Diffuse permeative pattern consistent with osteopenia SOFT TISSUES:Negative. No visible soft tissue swelling. EFFUSION:None visible. OTHER: Negative. XR/XR foot LT min 3V IMPRESSION: Stable exam with partial bony bridging of the posterior calcaneal osteotomy Electronically authenticated by: YOVANNY BREEN Date: 02/28/2024 07:33
--- NOTE | 2024-02-27 | XR_ITS ---
The [address] [address] Patient Name: HOLLI RODGERS MRN: [id number] date: 1970 Sex: F Assigned Patient Location: [facility] Current Patient Location: Accession/Order Number: [id number] Exam Date: 02/27/2024 11:45 Report Date: 02/28/2024 07:33 At the request of: HUSAM JIMENEZ Procedure: XR ankle LT min 3V PROCEDURE: XR foot LT min 3V, XR ankle LT min 3V COMPARISON: Multiple prior comparisons the latest 02/01/2024 HISTORY: LEFT FOOT PAIN FINDINGS: BONES:Stable posterior calcaneal osteotomy transfixed with 2 screws. There is partial bony bridging along the cranial margin of the osteotomy with incomplete bony bridging along the mid to caudal portion. Enthesopathic spurring plantar calcaneus. Mild stable degenerative changes with marginal osteophyte formation. Diffuse permeative pattern consistent with osteopenia SOFT TISSUES:Negative. No visible soft tissue swelling. EFFUSION:None visible. OTHER: Negative. 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
--- OUTSIDE RECORDS SUMMARY | 2024-02-27 11:49 | XMS_ITS | CCD ---
Author Organization [facility] Care Team Providers Care [employer] Licensee Name Role Phone MARCIANO, DR ORTIZ Consulting [...] Duarte Admitting Unavailable MARKY David Attending Provider MARKY David Attending Provider Pradeep David Attending [...] Referring Unavailable YOUSIF DUARTE Attending Unavailable GODFREY TAIRQ Attending Unavailable MARIZOL DUARTES Jorge Luis Attending Unavailable GWENDOLYN DUARTEOLAS Jorge Luis Attending Unavailable BROWNGWENDOLYNYOUSIF Jorge Luis Attending Unavailable BROWNGWENDOLYNYOUSIF Jorge Luis Attending Unavailable BROWN YOUSIF Jorge Luis Referring Unavailable BROWNGWENDOLYNYOUSIF A Attending Unavailable BROWNGWENDOLYNYOUSIF Jorge Luis Referring Unavailable YOUSIF DUARTE Attending Unavailable GODFREY TARIQ Attending Unavailable Godfrey Tariq MD Primary Care Provider [phone] Allergies Allergy Classification Reported Allergen(s) Allergy Type Date of Onset Reaction(s) Facility (2 sources) Penicillins; Translations: [PENICILLINS] Drug allergy (disorder) 4 [facility] Repository (2 sources) penicillAMINE Drug Allergy Unknown [employer] Other (2 sources) Penicillins Drug Allergy 7 [facility] (6 sources) Amoxicillin Drug Allergy 3 [facility] (6 sources) Penicillin G Drug Allergy 3 Unknown [facility] Healthcare Medications Current Medications Medication Drug Class(es) Dates Sig (Normalized) Sig (Original) acetaminophen 325 mg / HYDROcodone bitartrate 5 mg oral tablet (3 sources) Opioid Agonist Start: 11-29-2023 take 1 tablet by mouth every four hours as needed for pain HYDROcodone-acetam inophen (Mather) 5-325 MG tablet Take 1 tablet by mouth every 4 (four) hours if needed for moderate pain 11/29/2023 Active ALPRAZolam 0.25 mg oral tablet (3 sources) [...] MG PO Daily June 20, 2023 1:00am busPIRone hydrochloride 10 mg oral tablet (3 sources) Start: 01-02-2024 busPIRone (Buspar) 10 MG tablet Indications: Anxiety Take 1 tablet in AM and 2 in PM 90 tablet 01/02/2024 Active fluconazole 200 mg oral tablet (2 sources) Azole Antifungal Start: 02-19-2024 End: 03-04-2024 take 1 tablet by mouth once daily fluconazole (Diflucan) 200 MG tablet Indications: Acute vaginitis Take 1 tablet (200 mg) by mouth Daily for 14 days 14 tablet 02/19/2024 03/04/2024 Active Hair Skin Nails - (2 sources) Hair [...] Active 75 MG PO Twice daily 10 June 20, 2023 1:00am permethrin 50 mg/ml topical cream (3 sources) Pyrethroid Start: 12-06-2023 permethrin (Elimite) 5 % cream Apply 1 Application topically Daily 12/06/2023 Active Completed/Discontinued Medications Medication Drug Class(es) Dates [...] Comment on above: Take by mouth. multivit-min/iron/foli c/[id number] (HAIR, SKIN AND NAILS ADVANCED ORAL) (2 sources) multivit-min/iro n /folic/[id number] (HAIR, SKIN AND NAILS ADVANCED ORAL) Take [...] communicable diseases] Onset: 03-21-2021 Resolved: 03-21-2021 Episodic Inflammatory diseases of female pelvic organs (2 sources) Acute vaginitis; Translations: [Acute vaginitis] 02-19-2024 Episodic Mood disorders (3 sources) Depressive disorder; Translations: [Depression] 06-20-2023 Chronic Other acquired deformities (6 sources) Scoliosis deformity of spine; Translations: [Scoliosis, unspecified] Onset: 04-19-2023 04-19-2023 Chronic Other congenital anomalies (6 sources) Gorlin syndrome; 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, not elsewhere classified] Onset: 04-19-2023 04-19-2023 Chronic Other congenital anomalies (2 sources) Accessory left tarsal navicular bone; Translations: [Other congenital malformations of lower limb(s), including pelvic girdle] 06-12-2023 Chronic Other connective tissue disease (2 sources) Tendinitis of left posterior tibial tendon; Translations: [Posterior tibial tendinitis, left leg] 06-12-2023 Episodic Other ear and sense organ disorders (2 sources) Impacted cerumen of bilateral ears; Translations: [Impacted cerumen, bilateral] 02-19-2024 Episodic Other non-epithelial cancer of skin (3 sources) Basal cell carcinoma of skin; Translations: [Basal cell carcinoma of skin, unspecified] 06-20-2023 Episodic Residual codes; unclassified (3 sources) Other specified postprocedural states; Translations: [History of lumpectomy of right breast] 06-20-2023 Episodic Viral infection (5 sources) COVID-19; Translations: [COVID-19] Onset: 03-21-2021 Resolved: 03-21-2021 Past or Other Problems Problem Classification Problem Date Documented Date Episodic/Chronic Other connective tissue disease (1 source) Pain in left finger(s) Onset: Resolved: Episodic Other diseases of veins and lymphatics (6 sources) Vascular insufficiency; Translations: [Venous insufficiency (chronic) (peripheral)] Onset: 3 04-19-2023 Episodic Other lower respiratory disease (6 sources) Nodule of lung; Translations: [Solitary pulmonary nodule] Onset: 3 04-19-2023 Episodic Other nutritional; endocrine; and metabolic disorders (6 sources) Overweight; Translations: [Overweight] Onset: 3 04-19-2023 Episodic Other screening for suspected conditions (not mental disorders or infectious disease) (6 sources) Mammography abnormal; Translations: [Other abnormal and inconclusive findings on diagnostic imaging of breast] Onset: 3 04-19-2023 Episodic Sprains and strains (1 source) Sprain of metacarpophalangeal joint of left index finger, initial encounter Onset: 1 Resolved: 1 Episodic Results Test Name Value Interpretation Reference Range Facility [facility] 11-29-2023 L Specimen: [id number] Received: 11/29/23 [id number] Spec Type: Surgical Subm Dr: Pradeep David,DPM, MS Tissues: A Tendon/Sheath (LT POSTERIOR TIBIAL TENDON) Procedures: HE, Gross/Micro L3 Age/ Patient Sex Location Account Attending Physician Mago Rodgers 53/F LABELL [id number] Pradeep David DPM, MS SPEC NUM: [id number] RECD: 11/29/23 STATUS: EMIL ABDOULAYE NUM: [id number] ELIZA: 11/29/23 [facility] DR: Pradeep David DPM, MS ENTERED: 11/29/[address] [facility] [address]: Carrie Vieira SPEC TYPE: Surgical [...] tissue. Cut sections reveal unremarkable fibrous surfaces. Charging Operator sections are submitted in A1. TW Specimen: [id number] Received: 11/29/23 Status: EMIL Hung Num: [id number] Spec Type: Surgical Subm Dr: Pradeep David DPM, MS Tissues: A Tendon/Sheath (LT POSTERIOR TIBIAL TENDON) Procedures: HE, Gross/Micro L3 Patient: Mago Rodgers [id number] (Continued) Specimen: [id number] Received: 11/29/23 (Continued) Signed (signature on file) Serene Encarnacion MD 12/03/23 1053 Specimen: [id number] Received: 11/29/23 Status: EMIL Hung Num: [id number] Spec Type: Surgical Subm Dr: Pradeep David DPM, MS Tissues: A Tendon/Sheath (LT POSTERIOR TIBIAL TENDON) Procedures: Peter MILAN/Anjelica L3 Patient: Mago Rodgers [id number] (Continued) Specimen: [id number] Received: 11/29/23 (Continued) Microscopic Description Microscopic examinations are performed CPT Codes 34176 Specimen: [id number] Received: 11/29/23 Status: EMIL Hung Num: [id number] Spec Type: Surgical Subm Dr: Pradeep David DPM, MS Tissues: A Tendon/Sheath (LT POSTERIOR TIBIAL TENDON) Procedures: Peter MILAN/Anjelica L3 Patient: Mago Rodgers [id number] (Continued) Signed (signature on file) Dhaval-Valentin Encarnacion MD 12/03/23 1053 Normal [facility] MR FOOT LEFT W [...] cannot be excluded. ELECTRONICALLY SIGNED BY: Osman Newman, DO Normal Not Available Physician Orderon 07-11-2023 Physician Order [id number] #1.00TIFF Normal [facility] Physician Order [id number] #1.00TIFF Normal [facility] XR CHEST 2 VIEWSon XR CHEST [...] SARS-CoV-2 (COVID-19) RNA MANOJ+probe Ql (Unsp spec) [facility] MR FOOT LEFT WO IV CONTRASTo n [...] Not Available XR ANKLE 2 VIEWS LEFTon 03-31 XR ANKLE 2 VIEWS LEFT CLINICAL HISTORY: medial ankle pain left after catching foot. COMPARISON: NONE. LEFT ANKLE FINDINGS: There are no lytic or sclerotic bone lesions. There is no acute fracture or subluxation. There are no radiopaque foreign bodies. IMPRESSION: There are no acute osseous changes. ELECTRONICALLY SIGNED BY: Keith Weir MD Normal Not Available CNPNon 07-10-[address] [facility] Telephone (RADTSA) MAGO RODGERS ([id number]) 1970 F Date Time Provider Department 07/10/22 [...] for Visit: Future Appointment [256] Care Coordination [6209] Prescriptions as of 07/10/2022 - multivit-min/iron/fo lic/cas359 (HAIR, SKIN AND NAILS ADVANCED ORAL) Take [...] Status:Closed by VIKTORIA HAMILTON on 07/10/22 Normal [facility] COVID Quick Testingon 2020 Result Positive [employer] Other XR hand LT min 3V*on XR hand LT min 3V* [facility] [employer] Other XR hand LT min 3V* [facility] [place] [employer] Other XR hand LT min 3V* [facility] [employer] Other XR hand LT min 3V* DEYANIRA Stearns [address] [employer] Other XR hand LT min 3V* XRay Report [employer] Other XR hand LT min 3V* Signed [employer] Other XR hand LT min 3V* Patient: Mago Rodgers MR#: [id number] [employer] Other XR hand LT min 3V* 5847 [employer] Other XR hand LT min 3V* : 1970 Acct:[id number] [employer] Other XR hand LT min 3V* Age/Sex: 50 / F ADM Date: 03/11/21 [employer] Other XR hand LT min 3V* Loc: XDUCLY Room: Type: [facility] [employer] Other XR hand LT min 3V* Attending Dr: Negrita WAHRTON [employer] Other XR hand LT min 3V* Ordering Provider: DIO Castano [employer] Other XR hand LT min 3V* Date of Service: 03/11/21 [employer] Other XR hand LT min 3V* XR/XR hand LT min 3V*: LEFT HAND INJURY [employer] Other XR hand LT min 3V* Copies to: DIO Castano [employer] Other XR hand LT min 3V* LEFT HAND - 3 views [employer] Other XR hand LT min 3V* CLINICAL DATA: Patient got index finger caught in a screen door handle yesterday and has pain at [employer] Other XR hand LT min 3V* the distal second metacarpal and bruising. [employer] Other XR hand LT min 3V* COMPARISON: None [employer] Other XR hand LT min 3V* AP, lateral and oblique views were obtained. There is no evidence of fracture or dislocation. [employer] Other XR hand LT min 3V* There are no significant soft tissue abnormalities. [employer] Other XR hand LT min 3V* XR/XR hand LT min 3V* [employer] Other XR hand LT min 3V* IMPRESSION: [employer] Other XR hand LT min 3V* NO ACUTE BONY INJURY. [employer] Other XR hand LT min 3V* Impression dictated by: Moriah Sears M.D.03/11/2021 5:05 PM [employer] Other XR hand LT min 3V* Dictation Location: [place] [address] [employer] Other XR hand LT min 3V* Transcribed By: FAN 03/11/21 170 [employer] Other XR hand LT min 3V* Dictated By: Moriah Sears MD 03/11/21 170 [employer] Other XR hand LT min 3V* Signed By: [employer] Other XR hand LT min 3V* 03/11/211704 [facility] [employer] Other Vital Signs Date Time Vital Sign Value Performing Clinician Facility 02-19-2024 15:09-0400 Body height 160 cm Godfrey Tariq MD Work Phone: [facility] 02-19-2024 15:09-0400 Body mass index (BMI) [Ratio] 29.41 kg/m2 Godfrey Tariq MD Work Phone: [facility] 02-19-2024 15:09-0400 Body weight 75.3 kg Godfrey Tariq MD Work Phone: [facility] 06-20-2023 16:36-0500 Body height 162.56 cm [facility] 06-20-2023 16:36-0500 Body mass index (BMI) [Ratio] 28.3 kg/m2 [facility] 06-20-2023 16:36-0500 Body temperature 100.2 [degF] [facility] 06-20-2023 16:36-0500 Body weight 74.84 kg [facility] 06-20-2023 16:36-0500 Diastolic blood pressure 95 mm[Hg] [facility] 06-20-2023 16:36-0500 Heart rate 93 /min [facility] 06-20-2023 16:36-0500 Respiratory rate 18 /min [facility] 06-20-2023 16:36-0500 SaO2% (BldA) [Mass fraction] 98 % [facility] 06-20-2023 16:36-0500 Systolic blood pressure 143 mm[Hg] [facility] 06-12-2023 15:27-0500 Body height 160 cm Yousif Duarte DPM Work Phone: [facility] 06-12-2023 15:27-0500 Body mass index (BMI) [Ratio] 29.41 kg/m2 Yousif Duarte DPM Work Phone: [facility] 06-12-2023 15:27-0500 Body weight 75.3 kg Yousif Duarte DPM Work Phone: [facility] 06-12-2023 15:27-0500 Diastolic blood pressure 81 mm[Hg] Yousif Duarte DPM Work Phone: [facility] 06-12-2023 15:27-0500 Heart rate 79 /min Yousif Duarte DPM Work Phone: [facility] 06-12-2023 15:27-0500 Systolic blood pressure 123 mm[Hg] Yousif Brown DPM Work Phone: [facility] 07-10-2022 10:07-0400 Body temperature 96.69 [degF] Richard Walker MD Work Phone: [facility] 07-10-2022 10:07-0400 Body weight 78.47 kg Richard Walker MD Work Phone: [facility] 07-10-2022 10:07-0400 Diastolic blood pressure 89 mm[Hg] Richard Walker MD Work Phone: [facility] 07-10-2022 10:07-0400 Heart rate 92 /min Richard Walker MD Work Phone: [facility] 07-10-2022 10:07-0400 Respiratory rate 18 /min Richard Walker MD Work Phone: [facility] 07-10-2022 10:07-0400 SaO2% (BldA) [Mass fraction] 100 % Richard Walker MD Work Phone: [facility] 07-10-2022 10:07-0400 Systolic blood pressure 137 mm[Hg] Richard Walker MD Work Phone: [facility] 03-21-2021 12:00-0500 Body height 160.02 cm Diane Ginty Other [employer] Other 03-21-2021 12:00-0500 Body temperature 100.4 [degF] Diane Ginty Other [employer] Other 03-21-2021 12:00-0500 Respiratory rate 18 /min Diane Ginty Other [employer] Other 03-21-2021 12:00-0500 SaO2% (BldA) [Mass fraction] 98 % Diane Marie Other [employer] Other 03-11-2021 17:05-0500 Body height 160.02 cm Negrita Bowles Other [employer] Other 03-11-2021 17:05-0500 Body mass index (BMI) [Ratio] 27.63 kg/m2 Negrita Jelena Other [employer] Other 03-11-2021 17:05-0500 Body temperature 98 [degF] Negrita Jelena Other [employer] Other 03-11-2021 17:05-0500 Body weight 70.76 kg Negrita Jelena Other [employer] Other 03-11-2021 17:05-0500 Diastolic blood pressure 85 mm[Hg] Negrita Jelena Other [employer] Other 03-11-2021 17:05-0500 Respiratory rate 18 /min Negrita Jelena Other [employer] Other 03-11-2021 17:05-0500 SaO2% (BldA) [Mass fraction] 100 % Negrita Jelena Other [employer] Other 03-11-2021 17:05-0500 Systolic blood pressure 148 mm[Hg] Negrita Jelena Other [employer] Other Encounters Encounter Date Encounter Type Care Provider Facility Start: 02-19-2024 End: 02-19-2024 Office outpatient visit 15 minutes Godfrey Tariq MD Work Phone: [facility] Comment on above: Acute vaginitis (Cece teetee Dx); Bilateral impacted cerumen Start: 02-19-2024 End: 02-19-2024 Bamboo flowsheet Godfrey Tariq MD Work Phone: [facility] Start: 02-19-2024 End: 02-19-2024 Bamboo flowsheet Godfrey Tariq MD Work Phone: [facility] Start: 01-02-2024 End: 01-02-2024 ambulatory GODFREY TARIQ Not Available Start: 11-29-2023 End: 11-29-2023 ambulatory Pradeep Ramirez [facility] Work Phone: Start: 11-29-2023 End: 11-29-2023 Departed Referred DPM Pradeep David Work Phone: [facility] Start: 11-28-2023 End: 11-28-2023 ambulatory DPM Pradeep David Work Phone: [facility] Work Phone: Start: 11-28-2023 End: 11-28-2023 Departed Referred DPM Pradeep David Work Phone: [facility] Start: 10-31-2023 End: 10-31-2023 ambulatory YOUSIF [...] YOUSIF DUARTE Not Available Start: 07-17-2023 End: 07-17-2023 ambulatory ASIM BRITTON Not Available Start: 07-11-2023 End: 07-11-2023 Lab Drop off Yousif Duarte [facility] Start: 07-11-2023 End: 07-12-2023 ambulatory Yousif Duarte Facility:[facility] Start: 07-02-2023 End: 07-02-2023 ambulatory GODFREY TARIQ Not Available Start: 06-28-2023 End: 06-28-2023 ambulatory YOUSIF DUARTE Not Available Start: 06-27-2023 End: 06-27-2023 ambulatory YOUSIF DUARTE Not Available Start: 06-20-2023 End: 06-20-2023 ambulatory [facility] Work Phone: Start: 06-20-2023 End: 06-20-2023 Patient encounter procedure [facility] Work Phone: Start: 06-20-2023 End: 06-20-2023 ambulatory GODFREY TARIQ Not Available Start: 06-12-2023 End: 06-12-2023 Office outpatient visit 15 minutes Yousif Duarte DPM Work Phone: [facility] Comment on above: Accessory navicular bone [...] Start: 07-10-2022 End: 07-10-2022 ambulatory GODFREY TARIQ Facility:[facility] Start: 07-10-2022 End: 07-10-2022 Patient encounter procedure Richard Wlaker MD Work Phone: Radiation Oncology Comment on above: Malignant neoplasm o f central portion of right breast in female, estrogen receptor positive (HCC) (Primary Dx) Start: 03-22-2021 End: 03-22-[address] GODFREY TARIQ Facility: Start: 03-21-2021 End: 03-21-2021 ambulatory Diane Ginty Other [employer] Other Start: 03-21-2021 Office outpatient vi sit 15 minutes Diane Ginty [facility] Start: 03-11-2021 End: 03-11-2021 ambulatory Negrita Bowles Other [employer] Other Start: 03-11-2021 Office outpatient ne w 20 minutes Negrita Bowles [facility] Procedures Date Procedure Procedure Detail Performing Clinician Start: 06-20-2023 POC COVID/FLU/RSV Start: 07-04-2022 Mammography Richard Walker MD Work Phone: Start: 06-19-2022 Colonoscopy Yousif lin DPM Work Phone: Plan of Treatment Date Care Activity Detail Author Start: 06-19-2032 Screening for malign ant neoplasm of colon [facility] Start: 01-07-2025 Screening for malign ant neoplasm of cervix [facility] Start: 02-19-2024 End: 02-19-2024 Patient encounter procedure 02/19/2024 3:00 PM EDT Office Visit [facility] [address] [facility] [address] [place] [address] Godfrey Tariq MD [address] [place] [address] (Fax) Arrived [facility] Comment on above: Arrived Start: 12-30-2023 Influenza vaccination Influenza Vacc ine (#1) [facility] Start: 07-06-2023 End: 08-09-2023 Diagnostic mammography computer-aided detcj bi [facility] Radiology Routine Malignant neoplasm of central portion of right breast in female, estrogen receptor positive (HCC) Expected: 07/06/2023, Expires: 08/09/[address] [facility] Work Phone: Comment on above: Expected: 07/06/2023 , Expires: 08/09/2023 Start: 07-05-2023 Mammography MAMMOGRAM [facility] Start: 06-12-2023 End: 06-12-2023 Patient encounter procedure 06/12/2023 3:30 PM EST Office Visit [facility] [address] [place] [id number] Yousif Duarte DPM [address] [address] [facility] Start: 12-29-2022 Influenza vaccination Influenza Vacc ine (#1) [facility] Start: 04-30-2022 DEPRESSION ASSESSMENT DEPRESSION ASS ESSMENT [facility] Start: 12-29-2021 Influenza vaccination INFLUENZA (#1) [facility] Start: 10-15-2020 COVID-19 VACCINE (3 - Booster for Moderna series) COVID-19 VACCINE (3 - Booster for Moderna series) [facility] Start: 2018 SHINGRIX VACCINE (1 of 2) SHINGRIX VACCINE (1 of 2) [facility] Start: 2013 COLOGUARD (FIT-DNA) COLOGUARD (FIT-D NA) [facility] Start: 2013 Colonoscopy COLONOSCOPY [facility] Start: 2013 COLORECTAL CANCER SCREENING COLORECTAL CANCER SCREENING [facility] Start: [address] COLONOGRAPHY [facility] Start: 2013 DIABETES SCREEN DIABETES SCREEN [facility] Start: 2013 FECAL OCCULT BLOOD FECAL OCCULT BLOO D [facility] Start: 2013 LIPID SCREEN LIPID SCREEN [facility] Start: 2013 SIGMOIDOSCOPY SIGMOIDOSCOPY [facility] Start: 1998 HPV TESTING HPV TESTING [facility] Start: 1989 PAP TESTING PAP TESTING [facility] Start: 1989 Screening for malign ant neoplasm of cervix Pap Smear [facility] Start: 1987 Urine microalbumin profile DTAP,TDAP,TD (1 - Tdap) [facility] Start: 1986 HEPATITIS C SCREENING HEPATITIS C SC REENING [facility] Start: 1986 HIV SCREENING HIV SCREENING [facility] Start: 1968 HEPATITIS B (1 of 3 - 3-dose series) HEPATITIS B (1 of 3 - 3-dose series) [facility] Start: 1968 Screening for malign ant neoplasm of colon [facility] Immunizations Immunization Date Immunization Notes Care Provider Fa [facility] 02-08-2015 influenza, injectabl e, quadrivalent, preservative free Yousif Duarte DPM Work Phone: [facility] 02-08-2015 influenza virus vacc ine, unspecified formulation Yousif Duarte DPM Work Phone: [facility] 05-24-2014 influenza, injectabl e, quadrivalent, contains preservative Yousif Duarte DPM Work Phone: [facility] Payers Date Payer Category Payer Private Health Insurance [id number] 2022 Unknown [employer] [id number] 2022-Present [phone] [address] [address] [place] [address] [id number] 2022 Unknown [id number] 1970 Unknown [id number] 2.16.840.1.726590.3.579. 2.593 1968 Unknown [id number] 2.16.840.1.611625.3.579. 2.727 1968 Unknown [id number] 2.16.840.1.032264.3.579. 2.1258 1968 Unknown [id number] 2.16.840.1.023170.3.579. 2.9 1968 Unknown [id number] 2.16.840.1.715382.3.579. 2.1258 1968 Unknown [id number] 2.16.840.1.390912.3.579. 2.9 1968 Unknown [id number] 2.16.840.1.507272.3.579. 2.1258 1968 Unknown [id number] 2.16.840.1.221908.3.579. 2.1259 1968 Unknown [id number] 2.16.840.1.462120.3.579. 2.9 1968 Unknown [id number] 2.16.840.1.549722.3.579. 2.125 1968 Unknown [id number] 2.16.840.1.160074.3.579. 2.1258 1968 Unknown [id number] 2.16.840.1.076805.3.579. 2.9 1968 Unknown [id number] 2.16.840.1.973665.3.579. 2.1259 1968 Unknown [id number] 2.16.840.1.554197.3.579. 2.9 1968 Unknown [id number] 2.16.840.1.332582.3.579. 2.1258 1968 Unknown [id number] 2.16.840.1.330300.3.579. 2.9 1968 Unknown [id number] 2.16.840.1.195459.3.579. 2.1258 1968 Unknown [id number] 2.16.840.1.426858.3.579. 2.1258 1968 Unknown [id number] 2.16.840.1.875763.3.579. 2.1258 1968 Unknown [id number] 2.16.840.1.066015.3.579. 2.1258 1968 Unknown [id number] 2.16.840.1.791985.3.579. 2.1258 1968 Unknown [id number] 2.16.840.1.145837.3.579. 2.1258 1968 Unknown [id number] 2.16.840.1.869393.3.579. 2.1258 1968 Unknown [id number] 2.16.840.1.183459.3.579. 2.9 1968 Unknown [id number] 2.16.840.1.482504.3.579. 2.1258 1968 Unknown [id number] 2.16.840.1.614464.3.579. 2.9 1959 Unknown [id number] Self-pay Self Pay [id number] Social History Date Type Detail Facility Unknown if ever smoked [employer] Other Start: 04-19-2023 End: 07-02-2023 Sex Assigned At [facility] Start: 01-12-2017 End: 10-31-2023 Tobacco smoking status [facility] Ex-smoker [facility] Start: 04-10-1997 End: 04-19-1998 History of tobacco use Current smoker [facility] Start: 04-10-1997 End: 04-19-1998 History of tobacco use Cigarette Smoker [facility] Start: 01-12-2017 End: 10-31-2023 Tobacco use and exposure Smokeless tobacco non-user [facility] Start: 05-30-2021 Alcohol intake Current non-drinker of alcohol (finding) [facility] Start: 01-10-2017 Tobacco Comment quit but used to smoke socially [facility] Start: 1970 Sex Assigned At Not on file [facility] Start: 04-19-2023 End: 06-20-2023 Tobacco smoking status NHIS Never smoked tobacco [facility] Start: 05-30-2023 End: 06-12-2023 Alcohol intake Ex-drinker (finding) [facility] Start: 04-19-2023 End: 07-02-2023 History of Social function [facility] Within the last year , have you been afraid of your partner or ex-partner? No [facility] Do you belong to any clubs or organizations such as caodaism groups, unions, fra[employer]omanta Pharm[employer] or athletic groups, or school groups? Yes [...] [OSQ] Rather much [facility] (I/We) worried mirna er (my/our) food would run out before (I/we) got money to buy more. Never true [facility] Start: 04-25-2023 Alcohol Comment Caffeine intake: 2-3 cups per day coffee, soda/pop [facility] Start: 1970 Sex Assigned At Female [facility] Tobacco smoking status No Smokin g Status Entered [facility] Start: 11-29-2023 End: 02-19-2024 Alcoholic beverage intake Lifetime non-drinker (finding) [facility] Clinical Notes 03-11-2021 to 02-19-2024 Godfrey Tariq MD - 02/19/2024 3:00 PM KARLATYousif Duarte DPM - 06/12/2023 3:30 PM Leah Walker MD - 07/10/2022 11:52 PM EDTTelephone Encounter - Viktoria Hamliton RN - 07/10/2022 11:46 AM EDT Note Date & Type Note Facility 02-19-2024 History of Presen t illness Narrative Images from the original note were not included. Patient ID: Mago Rodgers is a 53 y.o. female who presents for: Cerumen Impaction Mago presents with diminished hearing in both ears for the past several days. There is a prior history of cerumen impaction. The patient has not been using ear drops to loosen wax immediately prior to this visit. The patient denies ear pain. She also stated me privately outside of the ear shot her, that she believes she has a vaginal yeast. Having some mild discharge and itching. She asked for medication. Objective The patient is pleasant and in no acute distress The patient does not appear to have a gross neurologic deficit. The patient has good eye contact and clear speech Excess cerumen from the ear canals ear are minimally erythematous Tms are clear bilaterally. Visit Vitals Ht 5' 3 Wt 166 lb BMI 29.41 kg/m OB Status Postmenopausal Smoking Status Former BSA 1.83 m Allergies Allergen Reactions Amoxicillin Hives Penicillin G Unknown Current Outpatient Medications on File Prior to Visit Medication Sig Dispense Refill busPIRone (Buspar) 10 MG tablet Take 1 tablet in AM and 2 in PM (Patient taking differently: Take 10 mg by mouth Daily) 90 tablet 0 HYDROcodone-acetaminophen (Mather) 5-325 MG tablet Take 1 tablet by mouth every 4 (four) hours if needed for moderate pain permethrin (Elimite) 5 % cream Apply 1 Application topically Daily No current facility-administered medications on file prior to visit. 1. Bilateral impacted cerumen Recurrent problem that was resolved today in the office. Follow up as needed 2. Acute vaginitis (Primary) Acute. Patient understands medication does not help then she needs a gynecologic evaluation. Prescription new - fluconazole (Diflucan) 200 MG tablet; Take 1 tablet (200 mg) by mouth Daily for 14 days Dispense: 14 tablet; Refill: 0 documented in this encounter [facility] 06-12-2023 History of Presen t illness Narrative [...] Villar[place] History of breast cancer Migraine headache ([facility]) Nodule of chest wall Skin cancer [...] 60 min Stress: Stress Concern Present (04/19/2023) [place] [employer] - Occupational Stress Questionnaire Feeling of Stress : Rather much Social Connections: Socially Integrated (04/19/2023) Social Connection and Isolation Panel [NHANES] Frequency of Communication with Friends and Family: More than three times a week Frequency of Social Gatherings with Friends and Family: Twice a week Attends Pent[employer] Services: 1 to 4 times per year [...] Patient may continue with conservative treatments including [id number] anti-inflammatories and other treatments suggested today. Patient may want to be scheduled for surgical intervention in the near future. Patient be rescheduled for a modified Kidner procedure to the left foot with tendon anchor in the near future Yousif Duarte DPM documented in this encounter [facility] 07-10-2022 History of Presen t illness Narrative Radiation Oncology - Follow Up Note PATIENT NAME: Mago Rodgers PATIENT DIAGNOSIS/PATIENT IDENTIFICATION: Ms. 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 This document has been created with the use of voice recognition technology. It may contain inaccuracies, misspellings, inaccurate syntax or inappropriate word context that are a result of the inadequacies/shortcomings of said technology/software. documented in this encounter [facility] 07-10-2022 Miscellaneous Notes Formattin g of [...] Viktoria Hamilton RN documented in this encounter [facility] 03-21-2021 Evaluation note Encounter Date Diagnosis [...] care instructions given in writting by [facility] Care At Home document [employer] Other 11-12-2021 Evaluation note* Encounter Date Diagnosis [...] Feb, Other Buddying tape material was printed [employer] Other Chief complaint+Reason for visit Narrative* Chief Complaint Cough, congestion Reason for Visit Contact with and (bailey spected) exposure to covid-19 [facility] Work Phone: Evaluation + Plan note No data available for this section [facility] Diagnosis Malignant neoplasm of central portion of right breast in female, estrogen receptor positive (HCC)- Primary [facility] Diagnosis Accessory navicular bone of left foot- Primary Posterior tibial tendinitis of left leg documented in this encounter [facility] HealthcareEvaluation note* Diagnosis Onset Date Resolution Status Contact with and (suspected) exposure to covid-19 noneactive [facility] Work Phone: Evaluation noteNo assessment information available [facility] Work Phone: Evaluation note* Diagnosis Acute vaginitis- Primary Unspecified vaginitis and vulvovaginitis Bilateral impacted cerumen Impacted cerumen [facility] - Reported* Type Description Date Medical History Depression Medical History Basal Cell Carcinoma Medical History breast cancer Surgical History [id number] Surgical History Skin cancer removed (back & ramin ek) Surgical History lumpectomy, right breast Hospitalization History See past surgical hx [employer] Other Hospital Discharge instructions No data available for this section [facility] No data available for this section [facility]ative[facility] Diagnostic Procedure Only (Routine) - Pending Review Specialty Diagnoses / Procedures Referred By Contac t Referred To Contact [facility] Diagnoses Malignant neoplasm of central portion of right breast in female, estrogen receptor positive (HCC) Procedures DANII DIAGNOSTIC BILAT DIAGNOSTIC MAMMOGRAPHY COMPUTER-AIDED DETCJ Richard Lizarraga MD [address] [place] [address] [place] [address] [facility] [address] [place] [address] Referral ID Status Reason Start Date Expiration Date Visits Requested Visits Authorized [id number] Pending Review Auto-Generat ed Referral 07/06/2023 08/09/2023 1 1 [facility] Summary Purpose Family History Relationship Condition Age at Onset Recorded Date/T sharon father Hypertension Unknown Cerebral aneurysm Unknown Unknown family member Unknown Not Specified Diabetes mellitus Unknown Malignant neoplasm Unknown Heart disease Unknown Relationship Condition Age at Onset Recorded Date/T sharon father Hypertension Unknown Cerebral aneurysm Unknown Unknown family member Unknown mother Diabetes mellitus Unknown Malignant neoplasm Unknown Heart disease Unknown Advance Directives Advance Directive Response Recorded Date/ Time Advance Directives No February 7:46am Advance Directive Response Recorded Date/ Time Advance Directives No May 5:27pm Additional Source Comments INFORMATION SOURCE (unrecogn ized section and content) DATE CREATED AUTHOR 06/18/2021 [facility] DATE CREATED AUTHOR AUTHOR'S ORGANIZ ATION 07/11/2022 [facility] DATE CREATED AUTHOR AUTHOR'S ORGANIZ ATION 07/13/2023 [facility] DATE CREATED AUTHOR AUTHOR'S ORGANIZ ATION 12/04/2023 [facility] DATE CREATED AUTHOR AUTHOR'S ORGANIZ ATION 01/04/2024 [facility] EPIC REASON FOR VISIT (unrecogniz ed section and content) Reason Comments Future Appointment Care Coordination Reason Comments Breast Cancer Specialty Diagnoses / Procedures Referred By Contac t Referred To Contact Radiation Oncology / [facility]PTS Diagnoses Follow-up exam 1 Yr Follow UP Procedures REFERRAL TO [facility]ANCIAL COUNSELOR OFFICE/OUTPATIENT ESTABLISHED HIGH MDM 40-54 MIN OFFICE/OUTPATIENT ESTABLISHED MOD MDM 30-39 MIN EST PATIENT Richard Walker MD [address] [place] [address] [place] [address] Richard Walker MD [address] [place] [address] [place] [address] Referral ID Status Reason Start Date Expiration Date V isits Requested Visits Authorized [id number] Closed Financial Clearance Required - OON Payor OON/Self Pay Override 07/10/2022 04/29/2023 1 1 Reason Comments Foot/ankle Fracture Left foot Fx Reason Comments Cerumen Impaction Source Comments (unrecognize d section and content) In the event this informatio n is protected by the Federal Confidentiality of Alcohol and Drug Abuse Patient Records regulations: The Federal rules restrict any use of the information to criminally investigate or prosecute any alcohol or drug abuse patient.[facility] the event this information is protected by the Federal Confidentiality of Alcohol and Drug Abuse Patient Records regulations: The Federal rules restrict any use of the information to criminally investigate or prosecute any alcohol or drug abuse patient.[facility] Care Teams (unrecognized sec tion and content) Funeral Service Licensee Relationship Specialty Start Date End Date Godfrey Tariq MD [address] [place] [address] (Fax) PCP - General Family Medicine 01/08/17 Funeral Service Licensee Relationship Specialty Start Date End Date Godfrey Tariq MD [address] [place] [address] (Fax) PCP - General Family Medicine 01/08/17 Funeral Service Licensee Relationship Specialty Start Date End Date Godfrey Tariq MD [address] [place] [address] (Fax) PCP - General Family Medicine 09/05/22 Funeral Service Licensee Relationship Specialty Start Date End Date Godfrey Tariq MD [address] [place] [address] (Fax) PCP - General Family Medicine 09/05/22 Team Status: Active Member Role Status Dates Godfrey Tariq MD Primary Care Provider Active Team Status: Inactive Member Role Status Dates Godfrey Tariq MD Primary Care Provider Active Start: June 20, 2023 End: June 20, 2023 Negrita Bowles NP-C Attending Provider Active S tart: June 20, 2023 End: June 20, 2023 Team Status: Inactive Member Role Status Dates Pradeep David DPM MS Attending Provider Active Start: November 28, 2023 End: November 28, 2023 Team Status: Inactive Member Role Status Dates Pradeep David DPM MS Attending Provider Active Start: November 29, 2023 End: November 29, 2023 Funeral Service Licensee Relationship Specialty Start Date End Date Godfrey Tariq MD [address] [place] [phone] (Fax) PCP - General Family Medicine 09/05/22 Goals (unrecognized section and content) Goals may [...] BE BASED ON THE PRIMARY CLINICAL RECORDS. [facility] [employer] [facility]. provides no warranty or guarantee of the accuracy or completeness of information in this document.
== END 2024-02-27 11:42 | disposition home or self-care (01) ==
LOC: RAD 11:41
PROVIDERS: PCP Family Medicine; Visit Provider Physician Assistant
DX: M76.822 Posterior tibial tendinitis, left leg (principal); M79.672 Pain in left foot; Z98.890 Other specified postprocedural states
CPT/HCPCS: 73610; 73630

== ENCOUNTER 2024-03-12 15:27 | Outpatient (OUT) | payer OTHER, SELFPAY ==
--- NOTE | 2024-03-12 15:30 | XR_ITS ---
The [address] [address] Patient Name: HOLLI RODGERS MRN: [id number] date: 1970 Sex: F Assigned Patient Location: [facility] Current Patient Location: Accession/Order Number: [id number] Exam Date: 03/12/2024 15:48 Report Date: 03/13/2024 04:48 At the request of: KACY HOOPER Procedure: XR DEXA axial skeleton EXAMINATION: XR DEXA axial skeleton HISTORY: Osteopenia COMPARISON: No relevant comparison available. TECHNIQUE: Dual-energy X-ray absorptiometry (DXA) was performed. FINDINGS: SPINE ANALYSIS: Average bone mineral density is 1.192 g/cm2. T-score (standard deviation relative to young adult mean): 0.1 . HIP ANALYSIS: Lowest bone mineral density is within the left femoral neck, 0.773 g/cm2. T-score (standard deviation relative to young adult mean): -1.9 . XR/XR DEXA axial skeleton IMPRESSION: World Health Organization Classification: Osteopenia - Moderate Fracture Risk FRAX: Cannot calculate. Pharmacologic treatment recommendations * No uniform recommendation applies to all patients. Management plans must be individualized. * Consider initiating pharmacologic treatment in postmenopausal women and men >= 50 years of age who have the following: Primary fracture prevention: * T-score <= - 2.5 at the femoral neck, total hip, lumbar spine, 33% radius (some uncertainty with existing data) by DXA. * Low bone mass (osteopenia: T-score between - 1.0 and - 2.5) at the femoral neck or total hip by DXA with a 10-year hip fracture risk >= 3% or a 10-year major osteoporosis-related fracture risk >= 20% (i.e., clinical vertebral, hip, forearm, or proximal humerus) based on the [place]-adapted FRAXregistered model. Secondary fracture prevention: * Fracture of the hip or vertebra regardless of BMD [4, 5]. * Fracture of proximal humerus, pelvis, or distal forearm in persons with low bone mass (osteopenia: T-score between - 1.0 and - 2.5). The decision to treat should be individualized in persons with a fracture of the proximal humerus, pelvis, or distal forearm who do not have osteopenia or low BMD [12, 13]. Kev MS, Lane SL, Jenny KL, Christine EM, Mono KG, AJ, Ursula ES. The clinician's guide to prevention and treatment of osteoporosis. Osteoporos Int. 2021;33(10):7992-0747. doi: 10.1007/l10033-935-75940-z. Epub 2021Aug 25. Erratum in: Osteoporos Int. 2021Nov 24;: PMID: 31902159; PMCID: [id number]. Electronically authenticated by: EDVIN LEDESMA Date: 03/13/2024 04:48
== END 2024-03-12 15:28 | disposition home or self-care (01) ==
LOC: RAD 15:27
PROVIDERS: PCP Family Medicine; Visit Provider Podiatrist Foot & Ankle Surgery
DX: M85.80 Other specified disorders of bone density and structure, unspecified site (principal)
CPT/HCPCS: 77080

== ENCOUNTER 2024-03-25 10:29 | Outpatient (OUT) | payer OTHER, SELFPAY ==
--- NOTE | 2024-03-25 10:31 | XR_ITS ---
The [address] [address] Patient Name: HOLLI RODGERS MRN: [id number] date: 1970 Sex: F Assigned Patient Location: [facility] Current Patient Location: Accession/Order Number: [id number] Exam Date: 03/25/2024 10:40 Report Date: 03/28/2024 08:41 At the request of: KACY HOOPER Procedure: XR foot LT min 3V PROCEDURE: XR foot LT min 3V HISTORY: Posterior Tibial Tendonitis COMPARISON: XR foot left 02/27/2024 FINDINGS: BONES:Prior calcaneal osteotomy and realignment; no appreciable hardware fracture loosening. No significant increased density at site of prior osteotomy or callus formation. Mild degenerative changes the midfoot. Calcaneal plantar spur. SOFT TISSUES:No visible soft tissue swelling. EFFUSION:None visible. OTHER: Negative. XR/XR foot LT min 3V IMPRESSION: 1. Stable surgical changes without evidence of hardware failure or change in alignment. 2. No acute abnormality. Electronically authenticated by: EDVIN LEDESMA Date: 03/28/2024 08:41
--- OUTSIDE RECORDS SUMMARY | 2024-03-25 10:46 | XMS_ITS | CCD ---
Author Organization [facility] Care Team Providers Care Square Dance Caller Name Role Phone MARCIANO, DR ORTIZ Consulting Unavailable MARCIANO, DR ORTIZ Attending Unavailable MARCIANO, DR ORTIZ Admitting Unavailable MARCIANO, DR ORTIZ Primary Care Unavailable Negrita Bowles Unavailable Diane Marie Unavailable Godfrey Tariq MD Primary Care Provider GODFREY TARIQ Primary Care Unavailab RICHARD Spears Referring Unavailable RICHARD WALKER Attending Unavailable Godfrey Tariq MD Primary Care Provider [phone] Yousif Duarte Primary Care Physician Yousif Duarte Attending Unavailable Yousif Duarte Admitting Unavailable MARKY David Attending Provider MARKY David Attending Provider [phone] Pradeep David Attending Unavailable Pradeep David Admitting [...] Unavailable Godfrey Tariq MD Primary Care Provider Allergies Allergy Classification Reported Allergen(s) Allergy Type Date of Onset Reaction(s) Facility (2 sources) Penicillins; Translations: [PENICILLINS] Drug allergy (disorder) 4 [facility] Repository (2 sources) penicillAMINE Drug Allergy Unknown [facility] Other (2 sources) Penicillins Drug Allergy 7 [facility] (6 sources) Amoxicillin Drug Allergy 3 [facility] (6 sources) Penicillin G Drug Allergy 3 Unknown [facility] Healthcare Medications Current Medications Medication Drug Class(es) Dates Sig (Normalized) Sig (Original) acetaminophen 325 mg / HYDROcodone bitartrate 5 mg oral tablet (3 sources) Opioid Agonist Start: 11-29-2023 take 1 tablet by mouth every four hours as needed for pain HYDROcodone-acetam inophen ([place]) 5-325 MG tablet Take 1 tablet by [...] Comment on above: Take by mouth. multivit-min/iron/foli c/jig273 (HAIR, SKIN AND NAILS ADVANCED ORAL) (2 sources) multivit-min/iro n /folic/rqb647 (HAIR, SKIN AND NAILS ADVANCED ORAL) Take [...] Test Name Value Interpretation Reference Range Facility [facility] 11-29-2023 L Specimen: [id number] Received: 11/29/23 [id number] Spec Type: Surgical Subm Dr: Pradeep David,DPM, MS Tissues: A Tendon/Sheath (LT POSTERIOR TIBIAL TENDON) Procedures: HE, Gross/Micro L3 Age/ Patient Sex Location Account Attending Physician Mago Rodgers 53/F LABELL [id number] Pradeep David DPM, MS SPEC NUM: [id number] RECD: 11/29/23 STATUS: EMIL ABDOULAYE NUM: [id number] ELIZA: 11/29/23 [facility] DR: Pradeep David DPM, MS ENTERED: 11/29/23 [facility] DR: Carrie Vieira SPEC TYPE: Surgical [...] tissue. Cut sections reveal unremarkable fibrous surfaces. Career Development Coordinator/Teacher sections are submitted in A1. TW Specimen: [id number] Received: 11/29/23 Status: EMIL Hung Num: [id number] Spec Type: Surgical Subm Dr: Pradeep David DPM, MS Tissues: A Tendon/Sheath (LT POSTERIOR TIBIAL TENDON) Procedures: HE, Gross/Micro L3 Patient: Mago Rodgers [id number] (Continued) Specimen: [id number] Received: 11/29/23 (Continued) Signed (signature on file) Serene Encarnacion MD 12/03/23 1053 Specimen: [id number] Received: 11/29/23 Status: EMIL Hung Num: [id number] Spec Type: Surgical Subm Dr: Pradeep David DPM, MS Tissues: A Tendon/Sheath (LT POSTERIOR TIBIAL TENDON) Procedures: Peter MILAN/Anjelica L3 Patient: Mago Rodgers [id number] (Continued) Specimen: [id number] Received: 11/29/23 (Continued) Microscopic Description Microscopic examinations are performed CPT Codes 62496 Specimen: [id number] Received: 11/29/23 Status: EMIL Hung Num: [id number] Spec Type: Surgical Subm Dr: Pradeep David DPM, MS Tissues: A Tendon/Sheath (LT POSTERIOR TIBIAL TENDON) Procedures: Peter MILAN/Anjelica L3 Patient: Mago Rodgers [id number] (Continued) Signed (signature on file) Dhaval-Valentin Encarnacion MD 12/03/23 1053 Normal [facility] MR FOOT LEFT W [...] Not Available Physician Orderon 07-11-2023 Physician Order [id number] #1.00TIFF Normal [facility] Physician Order [id number] #1.00TIFF Normal [facility] XR CHEST 2 VIEWSon XR [...] SARS-CoV-2 (COVID-19) RNA MANOJ+probe Ql (Unsp spec) [facility] MR FOOT LEFT WO IV CONTRASTo [...] Weir MD Normal Not Available CNPNon 07-10-2022 [facility] Telephone (RADTSA) MAGO RODGERS ([id number]) 1970 F Date Time Provider Department 07/10/22 [...] for Visit: Future Appointment [256] Care Coordination [4151] Prescriptions as of 07/10/2022 - multivit-min/iron/fo lic/ikg481 (HAIR, SKIN AND NAILS ADVANCED ORAL) Take [...] Status:Closed by VIKTORIA HAMILTON on 07/10/22 Normal [facility] COVID Quick Testingon 2020 Result Positive [facility] Other XR hand LT min 3V*on XR hand LT min 3V* [facility] Other XR hand LT min 3V* [facility] Main [place] [facility] Other XR hand LT min 3V* [facility] Other XR hand LT min 3V* DEYANIRA Stearns [address] [facility] Other XR hand LT min 3V* XRay Report [facility] Other XR hand LT min 3V* Signed [facility] Other XR hand LT min 3V* Patient: Mago Rodgers MR#: [id number] [facility] Other XR hand LT min 3V* 5847 [facility] Other XR hand LT min 3V* : 1970 Acct:[id number] [facility] Other XR hand LT min 3V* Age/Sex: 50 / F ADM Date: 03/11/21 [facility] Other XR hand LT min 3V* Loc: X[facility]CLY Room: Type: [facility] Other XR hand LT min 3V* Attending Dr: Negrita WHARTON [facility] Other XR hand LT min 3V* Ordering Provider: DIO Castano [facility] Other XR hand LT min 3V* Date of Service: 03/11/21 [facility] Other XR hand LT min 3V* XR/XR hand LT min 3V*: LEFT HAND INJURY [facility] Other XR hand LT min 3V* Copies to: DIO Castano [facility] Other XR hand LT min 3V* LEFT HAND - 3 views [facility] Other XR hand LT min 3V* CLINICAL DATA: Patient got index finger caught in a screen door handle yesterday and has pain at [facility] Other XR hand LT min 3V* the distal second metacarpal and bruising. [facility] Other XR hand LT min 3V* COMPARISON: None [facility] Other XR hand LT min 3V* AP, lateral and oblique views were obtained. There is no evidence of fracture or dislocation. [facility] Other XR hand LT min 3V* There are no significant soft tissue abnormalities. [facility] Other XR hand LT min 3V* XR/XR hand LT min 3V* [facility] Other XR hand LT min 3V* IMPRESSION: [facility] Other XR hand LT min 3V* NO ACUTE BONY INJURY. [facility] Other XR hand LT min 3V* Impression dictated by: Moriah Sears M.D.03/11/2021 5:05 PM [facility] Other XR hand LT min 3V* Dictation Location: [place] [address] [facility] Other XR hand LT min 3V* Transcribed By: FAN 03/11/21 170 [facility] Other XR hand LT min 3V* Dictated By: Moriah Sears MD 03/11/21 170 [facility] Other XR hand LT min 3V* Signed By: [facility] Other XR hand LT min 3V* 03/11/211704 [facility] Other Vital Signs Date Time Vital Sign Value Performing Clinician Facility 02-19-2024 15:09-0400 Body height 160 cm Godfrey Tariq MD Work Phone: [facility] 02-19-2024 15:09-0400 Body mass index (BMI) [Ratio] 29.41 kg/m2 Godfrey Tariq MD Work Phone: [facility] 02-19-2024 15:09-0400 Body weight 75.3 kg Godfrey Tariq MD Work Phone: [facility] 06-20-2023 16:36-0500 Body height 162.56 cm [facility] 06-20-2023 16:36-0500 Body mass index (BMI) [Ratio] 28.3 kg/m2 [facility] 06-20-2023 16:36-0500 Body temperature 100.2 [degF] [facility] 06-20-2023 16:36-0500 Body weight 74.84 kg [facility] 06-20-2023 16:36-0500 Diastolic blood pressure 95 mm[Hg] [facility] 06-20-2023 16:36-0500 Heart rate 93 /min [facility] 06-20-2023 16:36-0500 Respiratory rate 18 /min [facility] 06-20-2023 16:36-0500 SaO2% (BldA) [Mass fraction] 98 % [facility] 06-20-2023 16:36-0500 Systolic blood pressure 143 mm[Hg] [facility] 06-12-2023 15:27-0500 Body height 160 cm Yousif Duarte DPM Work Phone: [facility] 06-12-2023 15:27-0500 Body mass index (BMI) [Ratio] 29.41 kg/m2 Yousif Duarte DPM Work Phone: [facility] 06-12-2023 15:27-0500 Body weight 75.3 kg Yousif Duarte DPM Work Phone: [facility] 06-12-2023 15:27-0500 Diastolic blood pressure 81 mm[Hg] Yousif Duarte DPM Work Phone: [facility] 06-12-2023 15:27-0500 Heart rate 79 /min Yousif Duarte DPM Work Phone: [facility] 06-12-2023 15:27-0500 Systolic blood pressure 123 mm[Hg] Yousif Brown DPM Work Phone: [facility] 07-10-2022 10:07-0400 Body temperature 96.69 [degF] Richard Walker MD Work Phone: [facility] 07-10-2022 10:07-0400 Body weight 78.47 kg Richard Walker MD Work Phone: [facility] 07-10-2022 10:07-0400 Diastolic blood pressure 89 mm[Hg] Richard Walker MD Work Phone: [facility] 07-10-2022 10:07-0400 Heart rate 92 /min Richard Walker MD Work Phone: [facility] 07-10-2022 10:07-0400 Respiratory rate 18 /min Richard Walker MD Work Phone: [facility] 07-10-2022 10:07-0400 SaO2% (BldA) [Mass fraction] 100 % Richard Walker MD Work Phone: [facility] 07-10-2022 10:07-0400 Systolic blood pressure 137 mm[Hg] Richard Walker MD Work Phone: [facility] 03-21-2021 12:00-0500 Body height 160.02 cm Diane Ginty Other [facility] Other 03-21-2021 12:00-0500 Body temperature 100.4 [degF] Diane Ginty Other [facility] Other 03-21-2021 12:00-0500 Respiratory rate 18 /min Diane Ginty Other [facility] Other 03-21-2021 12:00-0500 SaO2% (BldA) [Mass fraction] 98 % Diane Marie Other [facility] Other 03-11-2021 17:05-0500 Body height 160.02 cm Negrita Bowles Other [facility] Other 03-11-2021 17:05-0500 Body mass index (BMI) [Ratio] 27.63 kg/m2 Negrita Jelena Other [facility] Other 03-11-2021 17:05-0500 Body temperature 98 [degF] Negrita Jelena Other [facility] Other 03-11-2021 17:05-0500 Body weight 70.76 kg Negrita Jelena Other [facility] Other 03-11-2021 17:05-0500 Diastolic blood pressure 85 mm[Hg] Negrita Jelena Other [facility] Other 03-11-2021 17:05-0500 Respiratory rate 18 /min Negrita Jelena Other [facility] Other 03-11-2021 17:05-0500 SaO2% (BldA) [Mass fraction] 100 % Negrita Jelena Other [facility] Other 03-11-2021 17:05-0500 Systolic blood pressure 148 mm[Hg] Negrita Jelena Other [facility] Other Encounters Encounter Date Encounter Type Care [...] Start: 11-29-2023 End: 11-29-2023 ambulatory Pradeep Ramirez [facility] Work Phone: Start: 11-29-2023 End: 11-29-2023 Departed Referred DPM Pradeep David Work Phone: [facility] Start: 11-28-2023 End: 11-28-2023 ambulatory DPM Pradeep David Work Phone: [facility] Work Phone: Start: 11-28-2023 End: 11-28-2023 Departed Referred DPM Pradeep David Work Phone: [facility] Start: 10-31-2023 End: 10-31-2023 ambulatory YOUSIF [...] End: 07-11-2023 Lab Drop off Yousif Duarte [facility] Start: 07-11-2023 End: 07-12-2023 ambulatory Yousif Duarte Facility:[facility] Start: 07-02-2023 End: 07-02-2023 ambulatory GODFREY TARIQ Not Available Start: 06-28-2023 End: 06-28-2023 ambulatory YOUSIF DUARTE Not Available Start: 06-27-2023 End: 06-27-2023 ambulatory YOUSIF DUARTE Not Available Start: 06-20-2023 End: 06-20-2023 ambulatory [facility] Work Phone: Start: 06-20-2023 End: 06-20-2023 Patient encounter procedure [facility] Work Phone: Start: 06-20-2023 End: 06-20-2023 ambulatory GODFREY TARIQ Not Available Start: 06-12-2023 End: 06-12-2023 Office outpatient visit 15 minutes Yousif Duarte DPM Work Phone: [facility] Comment on above: Accessory navicular bone [...] Start: 07-10-2022 End: 07-10-2022 ambulatory GODFREY TARIQ Facility:[place] Start: 07-10-2022 End: 07-10-2022 Patient encounter procedure Richard Walker MD Work Phone: Radiation Oncology Comment on above: Malignant neoplasm o f central portion of right breast in female, estrogen receptor positive (HCC) (Primary Dx) Start: 03-22-2021 End: 03-22-[address] GODFREY TARIQ Facility: Start: 03-21-2021 End: 03-21-2021 ambulatory Diane Ginty Other [facility] Other Start: 03-21-2021 Office outpatient vi sit 15 minutes Diane Ginty [facility] Start: 03-11-2021 End: 03-11-2021 ambulatory Negrita Bowles Other [facility] Other Start: 03-11-2021 Office outpatient ne w 20 minutes Negrita Bowles [facility] Procedures Date Procedure Procedure Detail Performing Clinician Start: 06-20-2023 POC COVID/FLU/RSV Start: 07-04-2022 Mammography Richard Walker MD Work Phone: Start: 06-19-2022 Colonoscopy Yousif lin DPM Work Phone: Plan of Treatment Date Care Activity Detail Author Start: 06-19-2032 Screening for malign ant neoplasm of colon [facility] Start: 01-07-2025 Screening for malign ant neoplasm of cervix [facility] Start: 02-19-2024 End: 02-19-2024 Patient encounter procedure 02/19/2024 3:00 PM EDT Office Visit [facility] [address] [facility] [address] [place] [address] Godfrey Tariq MD [address] [place] [address] (Fax) Arrived [facility] Comment on above: Arrived Start: 12-30-2023 Influenza vaccination Influenza Vacc ine (#1) [facility] Start: 07-06-2023 End: 08-09-2023 Diagnostic mammography computer-aided detcj bi [facility] Radiology Routine Malignant neoplasm of central portion of right breast in female, estrogen receptor positive (HCC) Expected: 07/06/2023, Expires: 08/09/2023 [facility] Work Phone: Comment on above: Expected: 07/06/2023 , Expires: 08/09/2023 Start: 07-05-2023 Mammography MAMMOGRAM [facility] Start: 06-12-2023 End: 06-12-2023 Patient encounter procedure 06/12/2023 3:30 PM EST Office Visit [facility] [address] [place] [id number] Yousif Duarte DPM [address] [address] [facility] Start: 12-29-2022 Influenza vaccination Influenza Vacc ine (#1) [facility] Start: 04-30-2022 DEPRESSION ASSESSMENT DEPRESSION ASS ESSMENT [facility] Start: 12-29-2021 Influenza vaccination INFLUENZA (#1) [facility] Start: 10-15-2020 COVID-19 VACCINE (3 - Booster for Moderna series) COVID-19 VACCINE (3 - Booster for Moderna series) [facility] Start: 2018 SHINGRIX VACCINE (1 of 2) SHINGRIX VACCINE (1 of 2) [facility] Start: 2013 COLOGUARD (FIT-DNA) COLOGUARD (FIT-D NA) [facility] Start: 2013 Colonoscopy COLONOSCOPY [facility] Start: 2013 COLORECTAL CANCER SCREENING COLORECTAL CANCER SCREENING [facility] Start: [address] COLONOGRAPHY [facility] Start: 2013 DIABETES SCREEN DIABETES SCREEN [facility] Start: 2013 FECAL OCCULT BLOOD FECAL OCCULT BLOO D [facility] Start: 2013 LIPID SCREEN LIPID SCREEN [facility] Start: 2013 SIGMOIDOSCOPY SIGMOIDOSCOPY [facility] Start: 1998 HPV TESTING HPV TESTING [facility] Start: 1989 PAP TESTING PAP TESTING [facility] Start: 1989 Screening for malign ant neoplasm of cervix Pap Smear [facility] Start: 1987 Urine microalbumin profile DTAP,TDAP,TD (1 - Tdap) [facility] Start: 1986 HEPATITIS C SCREENING HEPATITIS C SC REENING [facility] Start: 1986 HIV SCREENING HIV SCREENING [facility] Start: 1968 HEPATITIS B (1 of 3 - 3-dose series) HEPATITIS B (1 of 3 - 3-dose series) [facility] Start: 1968 Screening for malign ant neoplasm of colon [facility] Immunizations Immunization Date Immunization Notes Care Provider Fa [facility] 02-08-2015 influenza, injectabl e, quadrivalent, preservative free Yousif Duarte DPM Work Phone: [facility] 02-08-2015 influenza virus vacc ine, unspecified formulation Yousif Duarte DPM Work Phone: [facility] 05-24-2014 influenza, injectabl e, quadrivalent, contains preservative Yousif Duarte DPM Work Phone: [facility] Payers Date Payer Category Payer Private Health Insurance [id number] 2022 Unknown [employer] [id number] 2022-Present [phone] [address] [address] [place] [address] [id number] [id number] 2022 Unknown [id number] 1970 Unknown [id number] 2.16.840.1.795257.3.579. 2.593 1968 Unknown [id number] 2.16.840.1.494077.3.579. 2.727 1968 Unknown [id number] 2.16.840.1.875385.3.579. 2.1258 1968 Unknown [id number] 2.16.840.1.419369.3.579. 2.9 1968 Unknown [id number] 2.16.840.1.256817.3.579. 2.1258 1968 Unknown [id number] 2.16.840.1.545227.3.579. 2.9 1968 Unknown [id number] 2.16.840.1.561201.3.579. 2.1258 1968 Unknown [id number] 2.16.840.1.110597.3.579. 2.1259 1968 Unknown [id number] 2.16.840.1.084830.3.579. 2.9 1968 Unknown [id number] 2.16.840.1.856476.3.579. 2.125 1968 Unknown [id number] 2.16.840.1.078633.3.579. 2.1258 1968 Unknown [id number] 2.16.840.1.945360.3.579. 2.9 1968 Unknown [id number] 2.16.840.1.715123.3.579. 2.1259 1968 Unknown [id number] 2.16.840.1.148950.3.579. 2.9 1968 Unknown [id number] 2.16.840.1.227862.3.579. 2.1258 1968 Unknown [id number] 2.16.840.1.960968.3.579. 2.9 1968 Unknown [id number] 2.16.840.1.759601.3.579. 2.1258 1968 Unknown [id number] 2.16.840.1.802714.3.579. 2.1258 1968 Unknown [id number] 2.16.840.1.463003.3.579. 2.1258 1968 Unknown [id number] 2.16.840.1.620415.3.579. 2.1258 1968 Unknown [id number] 2.16.840.1.542092.3.579. 2.1258 1968 Unknown [id number] 2.16.840.1.745063.3.579. 2.1258 1968 Unknown [id number] 2.16.840.1.711766.3.579. 2.1258 1968 Unknown [id number] 2.16.840.1.546083.3.579. 2.9 1968 Unknown [id number] 2.16.840.1.644834.3.579. 2.1258 1968 Unknown [id number] 2.16.840.1.527643.3.579. 2.9 1959 Unknown [id number] Self-pay Self Pay [id number] Social History Date Type Detail Facility Unknown if ever smoked [facility] Other Start: 04-19-2023 End: 07-02-2023 Sex Assigned At [facility] Start: 01-12-2017 End: 10-31-2023 Tobacco smoking status [facility] Ex-smoker [facility] Start: 04-10-1997 End: 04-19-1998 History of tobacco use Current smoker [facility] Start: 04-10-1997 End: 04-19-1998 History of tobacco use Cigarette Smoker [facility] Start: 01-12-2017 End: 10-31-2023 Tobacco use and exposure Smokeless tobacco non-user [facility] Start: 05-30-2021 Alcohol intake Current non-drinker of alcohol (finding) [facility] Start: 01-10-2017 Tobacco Comment quit but used to smoke socially [facility] Start: 1970 Sex Assigned At Not on file [facility] Start: 04-19-2023 End: 06-20-2023 Tobacco smoking status NHIS Never smoked tobacco [facility] Start: 05-30-2023 End: 06-12-2023 Alcohol intake Ex-drinker (finding) [facility] Start: 04-19-2023 End: 07-02-2023 History of Social function [facility] Within the last year , have you been afraid of your partner or ex-partner? No [facility] Do you belong to any clubs or organizations such as episcopalian groups, unions, fragAuto or athletic groups, or school groups? Yes [...] intake: 2-3 cups per day coffee, soda/pop [facility] Healthcare Start: 1970 Sex Assigned At Female [facility] Tobacco smoking status No Smokin g Status Entered [facility] Start: 11-29-2023 End: 02-19-2024 Alcoholic beverage intake Lifetime non-drinker (finding) [facility] Clinical Notes 03-11-2021 to 02-19-2024 Godfrey Tariq [...] by mouth Daily) 90 tablet 0 HYDROcodone-acetaminophen ([place]) 5-325 MG tablet Take 1 tablet by [...] tablet; Refill: 0 documented in this encounter [facility] 06-12-2023 History of Presen t illness Narrative [...] Villarreal History of breast cancer Migraine headache ([facility] Nodule of chest wall Skin cancer 2009 [...] 60 min Stress: Stress Concern Present (04/19/2023) [place] of Occupational Health - Occupational Stress Questionnaire [...] Patient may continue with conservative treatments including pzub-lvw-aihpgvb anti-inflammatories and other treatments suggested today. Patient may want to be scheduled for surgical intervention in the near future. Patient be rescheduled for a modified Kidner procedure to the left foot with tendon anchor in the near future Yousif Duarte DPM documented in this encounter [facility] 07-10-2022 History of Presen t illness Narrative Radiation Oncology - Follow Up Note PATIENT NAME: Mago Rodgers PATIENT DIAGNOSIS/PATIENT IDENTIFICATION: Ms. 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 This document has been created with the use of voice recognition technology. It may contain inaccuracies, misspellings, inaccurate syntax or inappropriate word context that are a result of the inadequacies/shortcomings of said technology/software. documented in this encounter [facility] 07-10-2022 Miscellaneous Notes Formattin g of [...] Viktoria Hamilton RN documented in this encounter [facility] 03-21-2021 Evaluation note Encounter Date Diagnosis [...] Patient care instructions given in writting by [facility] Care At Home document [facility] Other 11-12-2021 Evaluation note* Encounter Date Diagnosis [...] Feb, Other Buddying tape material was printed [facility] Other Chief complaint+Reason for visit Narrative* Chief Complaint Cough, congestion Reason for Visit Contact with and (bailey spected) exposure to covid-19 [facility] Work Phone: Evaluation + Plan note No data available for this section [facility] Diagnosis Malignant neoplasm of central portion of right breast in female, estrogen receptor positive (HCC)- Primary [facility] Accessory navicular bone of left foot- Primary Posterior tibial tendinitis of left leg documented in this encounter [facility] HealthcareEvaluation note* Diagnosis Onset Date Resolution Status Contact with and (suspected) exposure to covid-19 noneactive [facility] Work Phone: Evaluation noteNo assessment information available [facility] Work Phone: Evaluation note* Diagnosis Acute vaginitis- [...] breast Hospitalization History See past surgical hx [facility] Other Hospital Discharge instructions No data available for this section [facility] No data available for this section [facility] Diagnostic Procedure Only (Routine) - Pending Review Specialty Diagnoses / Procedures Referred By Contac t Referred To Contact [facility] Diagnoses Malignant neoplasm of central portion of right breast in female, estrogen receptor positive (HCC) Procedures [facility] DIAGNOSTIC MAMMOGRAPHY COMPUTER-AIDED DETCJ Richard Lizarraga MD [address] [place] [address] [place] [address] [facility] [address] [place] [address] Referral ID Status Reason Start Date Expiration Date Visits Requested Visits Authorized [id number] Pending Review Auto-Generat ed Referral 07/06/2023 08/09/2023 1 1 [facility] Summary Purpose Family History Relationship Condition [...] and content) DATE CREATED AUTHOR [facility]/18/20[facility] DATE CREATED AUTHOR AUTHOR'S ORGANIZ ATION 07/11/2022 [facility] DATE CREATED AUTHOR AUTHOR'S ORGANIZ ATION 07/13/2023 [facility] DATE CREATED AUTHOR AUTHOR'S ORGANIZ ATION 12/04/2023 [facility] DATE CREATED AUTHOR AUTHOR'S ORGANIZ ATION 01/04/2024 [facility] EPIC REASON FOR VISIT (unrecogniz ed section and content) Reason Comments Future Appointment Care Coordination Reason Comments Breast Cancer Specialty Diagnoses / Procedures Referred By Contac t Referred To Contact Radiation Oncology / [facility] CANCER APPTS Diagnoses Follow-up exam 1 Yr Follow UP Procedures REFERRAL TO [facility] FINANCIAL COUNSELOR OFFICE/OUTPATIENT ESTABLISHED HIGH MDM 40-54 MIN OFFICE/OUTPATIENT ESTABLISHED MOD MDM 30-39 MIN EST PATIENT Richard Walker MD [address] [place] [address] [place] [address] Richard Walker MD [address] [place] [address] [place] [address] Referral ID Status Reason Start Date Expiration Date V isits Requested Visits Authorized [id number] Closed Financial Clearance Required - OON Payor [...] or prosecute any alcohol or drug abuse patient.[facility] the event this information is protected by the Federal Confidentiality of Alcohol and Drug Abuse Patient Records regulations: The Federal rules restrict any use of the information to criminally investigate or prosecute any alcohol or drug abuse patient.[facility] Care Teams (unrecognized sec tion and content) [employer] Caller Relationship Specialty Start Date End Date Godfrey Tariq MD [address] [place] [phone] (Fax) PCP - General Family Medicine 01/08/17 [employer] Relationship Specialty Start Date End Date Godfrey Tariq MD [address] [place] [phone] (Fax) PCP - General Family Medicine 01/08/17 [employer] Caller Relationship Specialty Start Date End Date Godfrey Tariq MD [address] [place] [address] (Fax) PCP - General Family Medicine 09/05/22 [employer] Caller Relationship Specialty Start Date End Date Godfrey Tariq MD [address] [place] [address] (Fax) PCP - General Family Medicine 09/05/22 [...] November 29, 2023 End: November 29, 2023 [employer] Caller Relationship Specialty Start Date End Date Godfrey Tariq MD [address] [place] [phone] (Fax) PCP - General Family Medicine 09/05/22 [...] BE BASED ON THE PRIMARY CLINICAL RECORDS. [facility] [employer] [facility]. provides no warranty or guarantee of the accuracy or completeness of information in this document.
== END 2024-03-25 10:30 | disposition home or self-care (01) ==
LOC: RAD 10:29
PROVIDERS: PCP Family Medicine; Visit Provider Podiatrist Foot & Ankle Surgery
DX: M76.822 Posterior tibial tendinitis, left leg (principal); M77.32 Calcaneal spur, left foot; Z98.890 Other specified postprocedural states
CPT/HCPCS: 73630

== ENCOUNTER 2024-05-06 09:41 | Outpatient (OUT) | payer OTHER, SELFPAY ==
--- NOTE | 2024-05-06 09:44 | XR_ITS ---
[address] [address] Patient Name: HOLLI RODGERS MRN: [id number] date: 1970 Sex: F Assigned Patient Location: [facility] Current Patient Location: [facility] Accession/Order Number: [id number] Exam Date: 05/06/2024 09:50 Report Date: 05/06/2024 22:17 At the request of: KACY HOOPER Procedure: XR foot LT min 3V EXAM: XR foot LT min 3V HISTORY: Left Foot Pain COMPARISON: 03/25/2024 FINDINGS/IMPRESSION: 1. No acute fracture or dislocation. 2. Mild degeneration of the interphalangeal joints. 3. Osteopenia. 4. Osteotomy of the calcaneus with associated screw fixation. No apparent hardware complication. 5. Mild degeneration of the mid foot. Electronically authenticated by: CHANDAN ALCALA Date: 05/06/2024 22:17
== END 2024-05-06 09:42 | disposition home or self-care (01) ==
LOC: RAD 09:41
PROVIDERS: PCP Family Medicine; Visit Provider Podiatrist Foot & Ankle Surgery
DX: M79.672 Pain in left foot (principal); M85.872 Other specified disorders of bone density and structure, left ankle and foot
CPT/HCPCS: 73630

== ENCOUNTER 2024-07-02 10:50 | Outpatient (OUT) | payer OTHER, SELFPAY ==
--- OUTSIDE RECORDS SUMMARY | 2024-07-02 10:53 | XMS_ITS | CCD ---
Author Organization [facility] CliniSysd Care Team Providers Care Double Head Machine Operator Name Role Phone MARCIANO, DR ORTIZ Consulting Unavailable MARCIANO, DR ORTIZ Attending Unavailable MARCIANO, DR ORTIZ Admitting Unavailable MARCIANO, DR ORTIZ Primary Care Unavailable Negirta Bowles Unavailable Diane Marie Unavailable Godfrey Tariq MD Primary Care Provider GODFREY TARIQ Primary Care Unavailab RICHARD Spears Referring Unavailable RICHARD WALKER Attending Unavailable Godfrey Tariq MD Primary Care Provider Yousif Duarte Primary Care Physician Yousif Duarte Attending Unavailable Yousif Duarte Admitting Unavailable MARKY David Attending Provider MARKY David Attending Provider Pradeep David Attending Unavailable Pradeep David Admitting Unavailable Godfrey Tariq MD Primary Care Provider [phone] GODFREY TARIQ Attending Unavailable GODFREY TARIQ Referring Unavailable YOUSIF DUARTE Attending Unavailable YOUSIF DUARTE Referring Unavailable YOUSIF DUARTE Attending Unavailable YOUSIF DUARTE Attending Unavailable YOUSIF DUARTE Attending Unavailable GODFREY TARIQ Attending Unavailable YOUSIF DUARTE Referring Unavailable YOUSIF DUARTE Attending Unavailable GODFREY TARIQ Attending Unavailable ASIM BRITTON Attending Unavailable ASIM BRITTON Referring Unavailable MARIZOL DUARTES Jorge Luis Attending Unavailable GWENDOLYN DUARTEOLAS Jorge Luis Attending Unavailable GWENDOLYN DUARTEOLAS Jorge Luis Attending Unavailable DOMO YOUSIF Jorge Luis Attending Unavailable GWENDOLYN DUARTEOLAS Jorge Luis Attending Unavailable BROWN, YOUSIF Kang Referring Unavailable YOUSIF DUARTE Attending Unavailable YOUSIF DUARTE Referring Unavailable YOUSIF DUARTE Attending Unavailable GODFREY TARIQ Attending Unavailable GODFREY TARIQ Attending Unavailable GODFREY TARIQ Attending Unavailable Godfrey Tariq MD Primary Care Provider Allergies Allergy Classification Reported Allergen(s) Allergy Type Date of Onset Reaction(s) Facility (2 sources) Penicillins; Translations: [PENICILLINS] Drug allergy (disorder) 4 [facility] Repository (2 sources) penicillAMINE Drug Allergy Unknown [facility] Other (2 sources) Penicillins Drug Allergy 7 [facility] (9 sources) Amoxicillin Drug Allergy 3 [facility] (9 sources) Penicillin G Drug Allergy 3 Unknown [facility] Medications Current Medications Medication Drug Class(es) Dates Sig (Normalized) Sig (Original) acetaminophen 325 mg / HYDROcodone bitartrate 5 mg oral tablet (6 sources) Opioid Agonist Start: 11-29-2023 take 1 tablet by mouth every four hours as needed for pain HYDROcodone-acetam inophen ([place]) 5-325 MG tablet Take 1 tablet by [...] 1:00am busPIRone hydrochloride 10 mg oral tablet (6 sources) Start: 03-17-2024 End: 06-15-2024 take 1 tablet by mouth once daily busPIRone (Buspar) 10 MG tablet Indications: Anxiety Take 1 tablet (10 mg) by mouth Daily 90 tablet 03/17/2024 06/15/2024 Active Start: 01-02-2024 busPIRone (Bus par) 10 MG tablet Indications: Anxiety Take 1 [...] 75 MG PO Twice daily 10 5 June 20, 2023 1:00am permethrin 50 mg/ml topical cream (6 sources) Pyrethroid Start: 12-06-2023 permethrin (Elimite) 5 % cream Apply 1 Application topically Daily 12/06/2023 Active Completed/Discontinued Medications Medication Drug Class(es) Dates Sig (Normalized) Sig (Original) aspirin 325 mg oral tablet (1 source) Platelet Aggregation Inhibitor, Nonsteroidal Anti-inflammatory Drug Start: 11-29-2023 End: 01-03-2024 take 1 tablet by mouth in the morning aspirin 325 MG tablet Take 325 mg by mouth in the morning and 325 mg before bedtime. 11/29/2023 01/03/2024 fluorouracil 50 mg/ml topical cream (2 sources) Nucleoside Metabolic Inhibitor Fluorouracil 5 % cream Apply 1 application to affected area as needed. 0 Active Comment on above: Apply 1 application to affected area as needed. homatropine methylbromide 0.3 mg/ml / HYDROcodone bitartrate 1 mg/ml oral solution (2 sources) Opioid Agonist, Cholinergic Muscarinic Agonist Start: 04-21-2024 End: 04-28-2024 HYDROcodone Bit-Homatrop MBr (Hydromet) 5-1.5 MG/5ML solution Indications: Cough Take 5 mL by mouth 4 (four) times a day as needed (cough) for up to 7 days 120 mL 04/21/2024 04/28/2024 melatonin 10 mg oral capsule (2 sources) End: 07-18-2022 melatonin 10 mg cap Take by mouth. 0 07/18/2022 Discontinued (Discontinued by another Health Care Provider) Comment on above: Take by mouth. multivit-min/iron/foli c/eff861 (HAIR, SKIN AND NAILS ADVANCED ORAL) (2 sources) multivit-min/iro n /folic/zqq818 (HAIR, SKIN AND NAILS ADVANCED ORAL) Take [...] Problem Classification Problem Date Documented Date Episodic/Chronic Anxiety disorders (1 source) Anxiety; Translations: [Anxiety disorder, unspecified] 01-02-2024 Chronic Cancer of breast (6 sources) Malignant neoplasm [...] Translations: [Depression] 06-20-2023 Chronic Other acquired deformities (9 sources) Scoliosis deformity of spine; Translations: [Scoliosis, unspecified] Onset: 04-19-2023 04-19-2023 Chronic Other congenital anomalies (9 sources) Gorlin syndrome; 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 [...] Translations: [Impacted cerumen, bilateral] 02-19-2024 Episodic Other lower respiratory disease (2 sources) Cough; Translations: [Acute cough] 05-03-2024 Episodic Other non-epithelial cancer of skin (3 sources) Basal cell carcinoma of skin; Translations: [Basal cell carcinoma of skin, unspecified] 06-20-2023 Episodic Residual codes; unclassified (3 sources) Other specified postprocedural states; Translations: [History of lumpectomy of right breast] 06-20-2023 Episodic Viral infection (2 sources) Disease caused by 2019-nCoV; Translations: [COVID-19] 05-03-2024 Episodic Viral infection (5 sources) COVID-19; Translations: [COVID-19] Onset: 03-21-2021 Resolved: 03-21-2021 Past or Other Problems Problem Classification Problem Date Documented Date Episodic/Chronic Other connective tissue disease (1 source) Pain in left finger(s) Onset: 1 Resolved: Episodic Other diseases of veins and lymphatics (9 sources) Vascular insufficiency; Translations: [Venous insufficiency (chronic) (peripheral)] Onset: 3 04-19-2023 Episodic Other lower respiratory disease (9 sources) Nodule of lung; Translations: [Solitary pulmonary nodule] Onset: 3 04-19-2023 Episodic Other nutritional; endocrine; and metabolic disorders (9 sources) Overweight; Translations: [Overweight] Onset: 3 04-19-2023 Episodic Other screening for suspected conditions (not mental disorders or infectious disease) (9 sources) Mammography abnormal; Translations: [Other abnormal and inconclusive findings on diagnostic imaging of breast] Onset: 3 04-19-2023 Episodic Sprains and strains (1 source) Sprain of metacarpophalangeal joint of left index finger, initial encounter Onset: 1 Resolved: 1 Episodic Results Test Name Value Interpretation Reference Range Facility [facility] 11-29-2023 L Specimen: [id number] Received: 11/29/23 Status: EMIL Hung Num: [id number] Spec Type: Surgical Subm Dr: Pradeep David DPM, MS Tissues: A Tendon/Sheath (LT POSTERIOR TIBIAL TENDON) Procedures: HE, Gross/Micro L3 Age/ Patient Sex Location Account Attending Physician Mago Rodgers 53/F LABELL [id number] Pradeep David DPM, MS SPEC NUM: [id number] RECD: 11/29/23 STATUS: EMIL [facility] NUM: [id number] ELIZA: 11/29/[address]: Pradeep David DPM, MS ENTERED: 11/29/[address]: Dariel,Lab SPEC TYPE: Surgical DEPT: GLEN SAVAGE ORDERED: HE, Gross/Micro L3 ORDERED: BJORN Gross/Micro L3 Pathological Diagnosis Left posterior tibial [...] tissue. Cut sections reveal unremarkable fibrous surfaces. Chain Builder sections are submitted in A1. TW Specimen: [id number] Received: 11/29/23 Status: EMIL Hung Num: [id number] Spec Type: Surgical Subm Dr: Pradeep David,MARKY, MS Tissues: A Tendon/Sheath (LT POSTERIOR TIBIAL TENDON) Procedures: BJORN Gross/Micro L3 Patient: Mago Rodgers [id number] (Continued) Specimen: [id number] Received: 11/29/23 (Continued) Signed (signature on file) Serene Encarnacion MD 12/03/23 1053 Specimen: [id number] Received: 11/29/23 Status: EMIL Abhilash Num: [id number] Spec Type: Surgical Subm Dr: Pradeep David,MARKY, MS Tissues: A Tendon/Sheath (LT POSTERIOR TIBIAL TENDON) Procedures: Peter MILAN/Anjelica L3 Patient: Mago Rodgers [id number] (Continued) Specimen: [id number] Received: 11/29/23 (Continued) Microscopic Description Microscopic examinations are performed CPT Codes 04120 Specimen: [id number] Received: 11/29/23 Status: EMIL Hung Num: [id number] Spec Type: Surgical Subm Dr: Pradeep aDvid,DPKristin, MS Tissues: A Tendon/Sheath (LT POSTERIOR TIBIAL TENDON) Procedures: Peter MILAN/Anjelica Bates Patient: Mago Rodgers [id number] (Continued) Signed (signature on file) Serene Encarnacion MD 12/03/23 1053 Normal [facility] MR FOOT LEFT W [...] Not Available Physician Orderon 07-11-2023 Physician Order [id number] #1.00TIFF Normal [facility] Physician Order [id number] #1.00TIFF Normal [facility] XR CHEST 2 VIEWSon 4 [...] SARS-CoV-2 (COVID-19) RNA MANOJ+probe Ql (Unsp spec) [facility] MR FOOT LEFT WO IV CONTRASTo [...] acute osseous changes. ELECTRONICALLY SIGNED BY: Keith eWir MD Normal Not Available CNPMegha 07-10-2022 [facility] Telephone (RADTSA) MAGO RODGERS ([id number]) 1970 F Date Time Provider Department 07/10/22 RICHARD WALKER During your visit today, we recorded the following information about you: Viktoria Hamilton RN 07/10/2022 11:48 AM Signed LM for Dr Tariq's office to notify them that Dr Walekr is discharging patient to follow up only [...] for Visit: Future Appointment [256] Care Coordination [3495] Prescriptions as of 07/10/2022 - multivit-min/iron/fo lic/nrx736 (HAIR, SKIN AND NAILS ADVANCED ORAL) Take [...] Status:Closed by VIKTORIA HAMILTON on 07/10/22 Normal [facility] COVID Quick Testingon 2020 Result Positive [facility] Other XR hand LT min 3V*on 021 XR hand LT min 3V* [facility] Other XR hand LT min 3V* [facility] [employer] Other XR hand LT min 3V* 1111 [facility] [employer] Other XR hand LT min 3V* DEYANIRA Stearns [address] [facility] Other XR hand LT min 3V* XRay Report [facility] Other XR hand LT min 3V* Signed [facility] Other XR hand LT min 3V* Patient: Mago Rodgers MR#: [id number] [facility] Other XR hand LT min 3V* 5847 [facility] Other XR hand LT min 3V* : 1970 Acct:[id number] [facility] Other XR hand LT min 3V* Age/Sex: 50 / F ADM Date: 03/11/21 [facility] Other XR hand LT min 3V* Loc: XDUCLY Room: Type: [facility] [employer] Other XR hand LT min 3V* Attending Dr: Negrita WHARTON [facility] Other XR hand LT min 3V* Ordering Provider: DIO Castano [employer] Other XR hand LT min 3V* Date of Service: 03/11/21 [facility] Other XR hand LT min 3V* XR/XR hand LT min 3V*: LEFT HAND INJURY [facility] Other XR hand LT min 3V* Copies to: DIO Castano [employer] Other XR hand LT min 3V* LEFT HAND - 3 views [facility] Other XR hand LT min 3V* CLINICAL DATA: Patient got index finger caught in a screen door handle yesterday and has pain at [employer] [employer] Other XR hand LT min 3V* the distal second metacarpal and bruising. [employer] Other XR hand LT min 3V* COMPARISON: None [employer] Other XR hand LT min 3V* AP, lateral and oblique views were obtained. There is no evidence of fracture or dislocation. [facility] Other XR hand LT min 3V* There are no significant soft tissue abnormalities. [facility] Other XR hand LT min 3V* XR/XR hand LT min 3V* [facility] Other XR hand LT min 3V* IMPRESSION: [facility] Other XR hand LT min 3V* NO ACUTE BONY INJURY. [facility] Other XR hand LT min 3V* Impression dictated by: Moriah Sears M.D.03/11/2021 5:05 PM [facility] Other XR hand LT min 3V* Dictation Location: [place] [address] [facility] Other XR hand LT min 3V* Transcribed By: FAN 03/11/21 [facility] [employer] Other XR hand LT min 3V* Dictated By: Moriah Sears MD 03/11/21 [facility] [employer] Other XR hand LT min 3V* Signed By: [employer] Other XR hand LT min 3V* 03/11/[address] [place] [address] [employer] Other Vital Signs Date Time Vital Sign Value Performing Clinician Facility 02-19-2024 15:09-0400 Body height 160 cm Godfrey Tariq MD Work Phone: [facility] 02-19-2024 15:09-0400 Body mass index (BMI) [Ratio] 29.41 kg/m2 Godfrey Tariq MD Work Phone: [facility] 02-19-2024 15:09-0400 Body weight 75.3 kg Godfrey Tariq MD Work Phone: [facility] 06-20-2023 16:36-0500 Body height 162.56 cm [facility] 06-20-2023 16:36-0500 Body mass index (BMI) [Ratio] 28.3 kg/m2 [facility] 06-20-2023 16:36-0500 Body temperature 100.2 [degF] [facility] 06-20-2023 16:36-0500 Body weight 74.84 kg [facility] 06-20-2023 16:36-0500 Diastolic blood pressure 95 mm[Hg] [facility] 06-20-2023 16:36-0500 Heart rate 93 /min [facility] 06-20-2023 16:36-0500 Respiratory rate 18 /min [facility] 06-20-2023 16:36-0500 SaO2% (BldA) [Mass fraction] 98 % [facility] 06-20-2023 16:36-0500 Systolic blood pressure 143 mm[Hg] [facility] 06-12-2023 15:27-0500 Body height 160 cm Yousif Duarte DPM Work Phone: [facility] 06-12-2023 15:27-0500 Body mass index (BMI) [Ratio] 29.41 kg/m2 Yousif Duarte DPM Work Phone: [facility] 06-12-2023 15:27-0500 Body weight 75.3 kg Yousif Duarte DPM Work Phone: [facility] 06-12-2023 15:27-0500 Diastolic blood pressure 81 mm[Hg] Yousif Duarte DPM Work Phone: [facility] 06-12-2023 15:27-0500 Heart rate 79 /min Yousif Duarte DPM Work Phone: [facility] 06-12-2023 15:27-0500 Systolic blood pressure 123 mm[Hg] Yousif Duarte DPM Work Phone: [facility] 07-10-2022 10:07-0400 Body temperature 96.69 [degF] Richard Walker MD Work Phone: [facility] 07-10-2022 10:07-0400 Body weight 78.47 kg Richard Walker MD Work Phone: [facility] 07-10-2022 10:07-0400 Diastolic blood pressure 89 mm[Hg] Richard Walker MD Work Phone: [facility] 07-10-2022 10:07-0400 Heart rate 92 /min Richard Walker MD Work Phone: [facility] 07-10-2022 10:07-0400 Respiratory rate 18 /min Richard Walker MD Work Phone: [facility] 07-10-2022 10:07-0400 SaO2% (BldA) [Mass fraction] 100 % Richard Walker MD Work Phone: [facility] 07-10-2022 10:07-0400 Systolic blood pressure 137 mm[Hg] Richard Walker MD Work Phone: [facility] 03-21-2021 12:00-0500 Body height 160.02 cm Diane Ginty Other [employer] Other 03-21-2021 12:00-0500 Body temperature 100.4 [degF] Diane Ginty Other [facility] Other 03-21-2021 12:00-0500 Respiratory rate 18 /min Diane Ginty Other [facility] Other 03-21-2021 12:00-0500 SaO2% (BldA) [Mass fraction] 98 % Diane Ginty Other [facility] Other 03-11-2021 17:05-0500 Body height 160.02 cm Negrita Bowles Other [facility] Other 03-11-2021 17:05-0500 Body mass index (BMI) [Ratio] 27.63 kg/m2 Negrita Bowles Other [facility] Other 03-11-2021 17:05-0500 Body temperature 98 [degF] Negrita Bowles Other [facility] Other 03-11-2021 17:05-0500 Body weight 70.76 kg Negrita Bowles Other [facility] Other 03-11-2021 17:05-0500 Diastolic blood pressure 85 mm[Hg] Negrita Bowles Other [facility] Other 03-11-2021 17:05-0500 Respiratory rate 18 /min Negrita Bowles Other [facility] Other 03-11-2021 17:05-0500 SaO2% (BldA) [Mass fraction] 100 % Negrita Bowles Other [facility] Other 03-11-2021 17:05-0500 Systolic blood pressure 148 mm[Hg] Negrita Bowles Other [employer] [employer] Other Encounters Encounter Date Encounter Type Care Provider Facility Start: 04-21-2024 End: 04-21-2024 ambulatory GODFREY TARIQ Not Available Start: 04-21-2024 End: 04-21-2024 Office outpatient visit 15 minutes Godfrey Tariq MD Work Phone: [facility] Comment on above: COVID-19 (Primary Dx ); Acute cough Start: 02-19-2024 End: 02-19-2024 Office outpatient visit 15 minutes Godfrey Tariq MD Work Phone: [facility] Comment on above: Acute vaginitis (Cece teetee Dx); Bilateral impacted cerumen Start: 02-19-2024 End: 02-19-2024 ambulatory GODFREY TARIQ Not Available Start: 02-19-2024 End: 02-19-2024 Bamboo flowsheet Godfrey Tariq MD Work Phone: [facility] Start: 02-19-2024 End: 02-19-2024 Bamboo flowsheet Godfrey Tariq MD Work Phone: [facility] Start: 01-02-2024 End: 01-02-2024 ambulatory GODFREY TARIQ Not Available Start: 01-02-2024 End: 01-02-2024 Office outpatient visit 15 minutes Godfrey Tariq MD Work Phone: [facility] Comment on above: Anxiety (Primary Dx) Start: 11-29-2023 End: 11-29-2023 ambulatory [facility] Work Phone: Start: 11-29-2023 End: 11-29-2023 Departed Referred DPM Pradeep David Work Phone: [facility] Start: 11-28-2023 End: 11-28-2023 ambulatory DPM Pradeep David Work Phone: [facility] Work Phone: Start: 11-28-2023 End: 11-28-2023 Departed Referred DPM Pradeep David Work Phone: [facility] Start: 10-31-2023 End: 10-31-2023 ambulatory YOUSIF [...] End: 07-11-2023 Lab Drop off Yousif Duarte [facility] Start: 07-11-2023 End: 07-12-2023 ambulatory Yousif Duarte Facility:[facility] Start: 07-02-2023 End: 07-02-2023 ambulatory GODFREY TARIQ Not Available Start: 06-28-2023 End: 06-28-2023 ambulatory YOUSIF DUARTE Not Available Start: 06-27-2023 End: 06-27-2023 ambulatory YOUSIF DUARTE Not Available Start: 06-20-2023 End: 06-20-2023 ambulatory [facility] Work Phone: Start: 06-20-2023 End: 06-20-2023 Patient encounter procedure [facility] [place] Work Phone: Start: 06-20-2023 [...] Available Start: 05-03-2023 End: 05-03-2023 ambulatory YOUSIF Jorge Luis DOMO Not Available Start: 04-26-2023 End: 04-26-2023 ambulatory GODFREY BUCKNERLAMIN Not Available Start: 04-25-2023 End: 04-25-2023 ambulatory GODFREY BUCKNERLAMIN Not Available Start: 07-10-2022 Telephone encounter Richard Walker MD Work Phone: Radiation Oncology Comment on above: Future Appointment; Care Coordination Start: 07-10-2022 End: 07-10-2022 ambulatory GODFREY TARIQ Facility:[facility] Start: 07-10-2022 End: 07-10-2022 Patient encounter procedure Richard Walker MD Work Phone: Radiation Oncology Comment on above: Malignant neoplasm o f central portion of right breast in female, estrogen receptor positive (HCC) (Primary Dx) Start: 03-22-2021 End: 03-22-[address] GODFREY TARIQ Facility: Start: 03-21-2021 End: 03-21-2021 ambulatory Diane Ginty Other [employer] Other Start: 03-21-2021 Office outpatient vi sit 15 minutes Diane Ginty [facility] Start: 03-11-2021 End: 03-11-2021 ambulatory Negrita Jelena Other [employer] [employer] Other Start: 03-11-2021 Office outpatient ne w 20 minutes Negrita Jelena [facility] Procedures Date Procedure Procedure Detail Performing Clinician Start: 06-20-2023 POC COVID/FLU/RSV Start: 07-04-2022 Mammography Richard Walker MD Work Phone: Start: 06-19-2022 Colonoscopy Yousif lin DPM Work Phone: Plan of Treatment Date Care Activity Detail Author Start: 06-19-2032 Screening for malign ant neoplasm [facility] Start: 01-07-2025 Screening for malign ant neoplasm of cervix [facility] Start: 02-19-2024 End: 02-19-2024 Patient encounter procedure 02/19/2024 3:00 PM EDT Office Visit [facility] [address] [address] [place] [id number] Godfrey Tariq MD [address] [place] [address] Arrived [facility] Comment on above: Arrived Start: 12-30-2023 Influenza vaccination Influenza Vacc ine (#1) [facility] Start: 07-06-2023 End: 08-09-2023 Diagnostic mammography computer-aided detcj bi [facility] Radiology Routine Malignant neoplasm of central portion of right breast in female, estrogen receptor positive (HCC) Expected: 07/06/2023, Expires: 08/09/2023 [facility] Work Phone: Comment on above: Expected: 07/06/2023 , Expires: 08/09/2023 Start: 07-05-[address] [facility] Start: 06-12-2023 End: 06-12-2023 Patient encounter procedure 06/12/2023 3:30 PM EST Office Visit [facility] [address] [place] [phone] Yousif Duarte DPM [address] [address] [facility] Start: 12-29-2022 Influenza vaccination Influenza Vacc ine (#1) [facility] Start: 04-30-2022 DEPRESSION ASSESSMENT DEPRESSION ASS ESSMENT [facility] Start: 12-29-2021 Influenza vaccination INFLUENZA (#1) [facility] Start: 10-15-2020 COVID-19 VACCINE (3 - Booster for Moderna series) COVID-19 VACCINE (3 - Booster for Moderna series) [facility] Start: 2018 SHINGRIX VACCINE (1 of 2) SHINGRIX VACCINE (1 of 2) [facility] Start: 2013 COLOGUARD (FIT-DNA) COLOGUARD (FIT-D NA) [facility] Start: [address] [facility] Start: 2013 COLORECTAL CANCER SCREENING COLORECTAL CANCER SCREENING [facility] Start: [address] COLONOGRAPHY [facility] Start: 2013 DIABETES SCREEN DIABETES SCREEN [facility] Start: 2013 FECAL OCCULT BLOOD FECAL OCCULT BLOO D [facility] Start: 2013 LIPID SCREEN LIPID SCREEN [facility] Start: 2013 SIGMOIDOSCOPY SIGMOIDOSCOPY [facility] Start: 1998 HPV TESTING HPV TESTING [facility] Start: 1989 PAP TESTING PAP TESTING [facility] Start: 1989 Screening for malign ant neoplasm of cervix Pap Smear [facility] Start: 1987 Urine microalbumin profile DTAP,TDAP,TD (1 - Tdap) [facility] Start: 1986 HEPATITIS C SCREENING HEPATITIS C SC REENING [facility] Start: 1986 HIV SCREENING HIV SCREENING [facility] Start: 1968 HEPATITIS B (1 of 3 - 3-dose series) HEPATITIS B (1 of 3 - 3-dose series) [facility] Start: 1968 Screening for malign ant neoplasm of colon [facility] Immunizations Immunization Date Immunization Notes Care Provider Kiesha stark 02-08-2015 influenza, injectabl e, quadrivalent, preservative free Yousif Duarte DP Work Phone: [facility] 02-08-2015 influenza virus vacc ine, unspecified formulation Yousif Duarte DPM Work Phone: [facility] 05-24-2014 influenza, injectabl e, quadrivalent, contains preservative Yousif Duarte DPM Work Phone: [facility] Payers Date Payer Category Payer Private Health Insurance [id number] 2022 Unknown [employer] [id number] 2022-Present [phone] [address] [address] [place] [address] 1.2.840.380210.1.13.693. 2.7.3.888133.315 2022 Unknown [id number] 1970 Unknown [id number] 2.16.840.1.409094.3.579. 2.593 1968 Unknown [id number] 2.16.840.1.115659.3.579. 2.727 1968 Unknown [id number] 2.16.840.1.189033.3.579. 2.1259 1968 Unknown [id number] 2.16.840.1.078979.3.579. 2.1259 1968 Unknown [id number] 2.16.840.1.087323.3.579. 2.9 1968 Unknown [id number] 2.16.840.1.799867.3.579. 2.1259 1968 Unknown [id number] 2.16.840.1.537035.3.579. 2.1259 1968 Unknown [id number] 2.16.840.1.110058.3.579. 2.1259 1968 Unknown [id number] 2.16.840.1.922484.3.579. 2.1259 1968 Unknown [id number] 2.16.840.1.915457.3.579. 2.1259 1968 Unknown [id number] 2.16.840.1.813294.3.579. 2.1259 1968 Unknown [id number] 2.16.840.1.518691.3.579. 2.1259 1968 Unknown [id number] 2.16.840.1.674028.3.579. 2.1259 1968 Unknown [id number] 2.16.840.1.204197.3.579. 2.1259 1968 Unknown [id number] 2.16.840.1.521535.3.579. 2.1258 1968 Unknown [id number] 2.16.840.1.937830.3.579. 2.9 1968 Unknown [id number] 2.16.840.1.716541.3.579. 2.1258 1968 Unknown [id number] 2.16.840.1.229664.3.579. 2.1258 1968 Unknown [id number] 2.16.840.1.633083.3.579. 2.1258 1968 Unknown [id number] 2.16.840.1.374482.3.579. 2.1258 1968 Unknown [id number] 2.16.840.1.010026.3.579. 2.1258 1968 Unknown [id number] 2.16.840.1.547515.3.579. 2.1258 1968 Unknown [id number] 2.16.840.1.289503.3.579. 2.1258 1968 Unknown [id number] 2.16.840.1.610584.3.579. 2.1258 1968 Unknown [id number] 2.16.840.1.948746.3.579. 2.1258 1968 Unknown [id number] 2.16.840.1.265341.3.579. 2.1258 1968 Unknown [id number] 2.16.840.1.357733.3.579. 2.9 1959 Unknown [id number] Self-pay Self Pay [id number] Social History Date Type Detail Facility Unknown if ever smoked [facility] Start: 04-19-2023 End: 04-21-2024 Sex Assigned At [facility] Start: 01-12-2017 End: 10-31-2023 Tobacco smoking status NHIS Ex-smoker [facility] Start: 04-10-1997 End: 04-19-1998 History of tobacco use Current smoker [facility] Start: 04-10-1997 End: 04-19-1998 History of tobacco use Cigarette Smoker [facility] Start: 01-12-2017 End: 10-31-2023 Tobacco use and exposure Smokeless tobacco non-user [facility] Start: 05-30-2021 Alcohol intake Current non-drinker of alcohol (finding) [facility] Start: 01-10-2017 Tobacco Comment quit but used to smoke socially [facility] Start: 1970 Sex Assigned At Not on file [facility] Start: 04-19-2023 End: 06-20-2023 Tobacco smoking status NDIS Never smoked tobacco [facility] Start: 05-30-2023 End: 06-12-2023 Alcohol intake Ex-drinker (finding) [facility] Start: 04-19-2023 End: 04-21-2024 History of Social function [facility] Within the last year , have you been afraid of your partner or ex-partner? No [facility] Do you belong to any clubs or organizations such as mu-ism groups, unions, fraternal or athletic groups, or [...] Healthcare Start: 1970 Sex Assigned At Female [facility] Tobacco smoking status No Smokin g Status Entered [facility] Start: 11-29-2023 End: 02-19-2024 Alcoholic beverage intake Lifetime non-drinker (finding) [facility] Do you feel stress - tense, restless, nervous, or anxious, or unable to sleep at night because your mind is troubled all the time - these days [OSQ] To some extent [facility] Clinical Notes 03-11-2021 to 04-21-2024 Godfrey Tariq MD - 04/21/2024 2:45 PM Francoise Tariq MD - 02/19/2024 3:00 PM Misti Tariq MD - 01/02/2024 2:00 PM Jason Duarte DPM - 06/12/2023 3:30 PM EST Note Date & Type Note Facility 04-21-2024 History of Presen t illness Narrative Images from the original note were not included. Patient ID: Mago Rodgers is a 53 y.o. female who presents for: Pt started with symptoms on and tested positive for covid on Sunday. She states she's been treating OTC meds and taking zinc but has a terrible cough and a rash that she wanted to know if could send something in for her. She has not taken her temperature, she only has a minimal chilling. She is also feeling tired and having myalgia. Objective The patient is pleasant and in no acute distress The patient does not appear to have a gross neurologic deficit. The patient has good eye contact and clear speech No signs of increased work of breathing. Some nonproductive cough noted during the visit. Visit Vitals OB Status Postmenopausal Smoking Status Former PDMP reviewed, Godfrey Tariq MD on 04/21/2024 3:15 PM Appears as expected. Allergies Allergen Reactions Amoxicillin Hives Penicillin G Unknown Current Outpatient Medications on File Prior to Visit Medication Sig Dispense Refill busPIRone (Buspar) 10 MG tablet Take 1 tablet (10 mg) by mouth Daily 90 tablet 0 HYDROcodone-acetaminophen ([place]) 5-325 MG tablet Take 1 tablet by mouth every 4 (four) hours if needed for moderate pain permethrin (Elimite) 5 % cream Apply 1 Application topically Daily No current facility-administered medications on file prior to visit. 1. COVID-19 (Primary) We did discuss the possibility of using Paxlovid. She would prefer not to an it she has borderline as it would help any way. 2. Acute cough I did discuss with her and she has used a hydrocodone based cough syrup previously. It is not unreasonable to go ahead and give her this for some comfort I specifically note the patient has one or more high risk medications that is a chronic problem that specifically increases complexity of decision making and complicates all prescribing including prescription renewal consistent with a moderate or complex degree of decision making. A high-risk medicine is one that may cause serious health problems if not taken the correct way, or taken with another drug or food item that it may interact with. If the high-risk medication includes a controlled or reportable substance, The OARRS and NARX scores were reviewed and seem to be consistent with their prescribing pattern. The Current Opioid Misuse Measure (COMM) is reviewed and there is no evidence of aberrant behavior or abuse. Treatment regimens are increasingly complex and potentially harmful, and people with high risk medications need regular review and prescribing optimization. - HYDROcodone Bit-Homatrop MBr (Hydromet) 5-1.5 MG/5ML solution; Take 5 mL by mouth 4 (four) times a day as needed (cough) for up to 7 days Dispense: 120 mL; Refill: 0 documented in this encounter [facility] 02-19-2024 History of Presen t illness Narrative [...] by mouth Daily) 90 tablet 0 HYDROcodone-acetaminophen ([place]) 5-325 MG tablet Take 1 tablet by [...] tablet; Refill: 0 documented in this encounter [facility] 01-02-2024 History of Presen t illness Narrative Images from the original note were not included. Patient ID: Mago Rodgers is a 53 y.o. female who presents for: Anxiety Patient is here for evaluation of anxiety. He/She has the following anxiety symptoms: insomnia, racing thoughts. Onset of symptoms was approximately several years ago. Symptoms have been stable since that time. He/She denies current suicidal and homicidal ideation. Previous treatment includes . He/She complains of the following medication side effects: none. Review of Systems Constitutional: Negative for appetite change and fatigue. Psychiatric/Behavioral: Positive for sleep disturbance. Negative for agitation, behavioral problems and suicidal ideas. The patient is nervous/anxious. Objective Appearance: Well-groomed, in no acute distress Abnormal body movements: None Affect: Appropriate and appears to be full range Attention: Good Attitude: Cooperative Degree of awareness of surroundings: Grossly within normal limits Impulse control: Appears to be good Insight: Appears to be good Fund of knowledge; adequate Judgment: Appears to be adequate Perceptual disorders: No perceptual disorders noted Psychomotor activity: Within normal range Speech: Clear, normal variability and rate Thought content: Unremarkable Visit Vitals OB Status Postmenopausal Smoking Status Former Allergies Allergen Reactions Amoxicillin Hives Penicillin G Unknown Current Outpatient Medications on File Prior to Visit Medication Sig Dispense Refill HYDROcodone-acetaminophen ([place]) 5-325 MG tablet Take 1 tablet by mouth every 4 (four) hours if needed for moderate pain permethrin (Elimite) 5 % cream Apply 1 Application topically Daily No current facility-administered medications on file prior to visit. 1. Anxiety Chronic problem, stable, doing well on current medication. Dosing that his weighted towards the evening seems to be helping with the insomnia also. In prescribing a renewal to their current medication, consideration of the following encompasses moderate decision making; the current prescriptions and supplements, the current allergies and medication intolerances, current medical conditions, and potential drug interactions. Any changes to risks, benefits, and reason for renewing their current medication due to the above were discussed. The patient was given a chance to ask questions today and all questions were answered. The patient is to contact us if any other questions arise or if any problems occur. (Utilizing the original guidelines or the 2020 office/outpatient code guidelines for selecting the level of E/M service, In both sets of guidelines, prescription drug management appears in the moderate medical decision making (MDM) row. Neither the original guidelines nor the new guidelines state that a new prescription or change is needed in order to credit prescription drug management) - busPIRone (Buspar) 10 MG tablet; Take 1 tablet in AM and 2 in PM Dispense: 90 tablet; Refill: 0 documented in this encounter [facility] 06-12-2023 History of Presen t illness [...] of right breast Acne Brain injury (CMS/HCC) 2013 Brain bleed-head injury COVID-19 DCIS (ductal carcinoma in situ) 11/2016 right breast 9 o'clock Depression (CMS/HCC) Family history of cancer Fracture 1994 tailbone Fracture right foot hairline fx - navicular - sees Dr Villarreal History of breast cancer Migraine headache ([facility]) Nodule of chest wall Skin cancer 2008 [...] 60 min Stress: Stress Concern Present (04/19/2023) [place] [place] [employer] - Occupational Stress Questionnaire [...] Patient may continue with conservative treatments including [id number] anti-inflammatories and other treatments suggested today. Patient may want to be scheduled for surgical intervention in the near future. Patient be rescheduled for a modified Kidner procedure to the left foot with tendon anchor in the near future Yousif Duarte DPM documented in this encounter [facility] 07-10-2022 History of Presen t illness Narrative Radiation Oncology - Follow Up Note PATIENT NAME: Mago Rodgers PATIENT DIAGNOSIS/PATIENT IDENTIFICATION: Ms. 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 This document has been created with the use of voice recognition technology. It may contain inaccuracies, misspellings, inaccurate syntax or inappropriate word context that are a result of the inadequacies/shortcomings of said technology/software. documented in this encounter [facility] 07-10-2022 Miscellaneous Notes Formattin g of this [...] Viktoria Hamilton RN documented in this encounter [facility] 03-21-2021 Evaluation note Encounter Date Diagnosis Assessment [...] Patient care instructions given in writting by [facility] Care At Home document [facility] 11-12-2021 Evaluation note* Encounter Date Diagnosis [...] Feb, Other Buddying tape material was printed [facility] Other Chief complaint+Reason for visit Narrative* Chief Complaint Cough, congestion Reason for Visit Contact with and (bailey spected) exposure to covid-19 [facility] Work Phone: Evaluation + Plan note No data available for this section [facility] Diagnosis Malignant neoplasm of central portion of right breast in female, estrogen receptor positive (HCC)- Primary [facility] Diagnosis Accessory navicular bone of left foot- Primary Posterior tibial tendinitis of left leg documented in this encounter [facility] note* Diagnosis Onset Date Resolution Status Contact with and (suspected) exposure to covid-19 noneactive [facility] Work Phone: Evaluation noteNo assessment information available [facility] Work Phone: Evaluation note* Diagnosis Acute vaginitis- Primary Unspecified vaginitis and vulvovaginitis Bilateral impacted cerumen Impacted cerumen [facility] Diagnosis Anxiety- Primary Anxiety state, unspecified [facility]* Diagnosis COVID-19- Primary Acute cough [facility] N[facility]ative - Reported* Type Description Date Medical History Depression Medical History Basal Cell Carcinoma Medical History breast cancer Surgical History 1994 Surgical History Skin cancer removed (back & ramin ek) Surgical History lumpectomy, right breast Hospitalization History See past surgical hx [facility] Hospital Discharge instructions No data available for this section [facility] No data available for this section [facility] (narrative)* Diagnostic Procedure Only (Routine) - Pending Review Specialty Diagnoses / Procedures Referred By Ally t Referred To Contact [facility] Diagnoses Malignant neoplasm of central portion of right breast in female, estrogen receptor positive (HCC) Procedures DANII DIAGNOSTIC BILAT DIAGNOSTIC MAMMOGRAPHY COMPUTER-AIDED DETCJ Richard Lizarraga MD [address] [place] [address] [place] [address] [facility] [address] [place] [address] Referral ID Status Reason Start Date Expiration Date Visits Requested Visits Authorized [id number] Pending Review Auto-Generat ed Referral 07/06/2023 08/09/[address] [facility] Summary Purpose Family History Relationship Condition Age [...] and content) DATE CREATED AUTHOR 06/18/2021 [facility] DATE CREATED AUTHOR AUTHOR'S ORGANIZ ATION 07/11/2022 [facility] DATE CREATED AUTHOR AUTHOR'S ORGANIZ ATION 07/13/2023 [facility] DATE CREATED AUTHOR AUTHOR'S ORGANIZ ATION 12/04/2023 [facility] DATE CREATED AUTHOR AUTHOR'S ORGANIZ ATION 04/23/2024 [facility] Specialists EPIC REASON FOR VISIT (unrecogniz ed section and content) Reason Comments Future Appointment Care Coordination Reason Comments Breast Cancer Specialty Diagnoses / Procedures Referred By Contac t Referred To Contact Radiation Oncology / [facility] Diagnoses Follow-up exam 1 Yr Follow UP Procedures REFERRAL TO [facility] FINANCIAL COUNSELOR OFFICE/OUTPATIENT ESTABLISHED HIGH MDM 40-54 MIN OFFICE/OUTPATIENT ESTABLISHED MOD MDM 30-39 MIN EST PATIENT Richard Walker MD [address] [place] [address] [place] [address] Richard Walker MD [address] [place] [address] [place] [address] Referral ID Status Reason Start Date Expiration Date V isits Requested Visits Authorized [id number] Closed Financial Clearance Required - OON Payor OON/Self Pay Override 07/10/2022 04/29/2023 1 1 Reason Comments Foot/ankle Fracture Left foot Fx Reason Comments Cerumen Impaction Reason Comments Anxiety Reason Comments URI Source Comments (unrecognize d section and content) In the event this informatio n is protected by the Federal Confidentiality of Alcohol and Drug Abuse Patient Records regulations: The Federal rules restrict any use of the information to criminally investigate or prosecute any alcohol or drug abuse patient.[facility] the event this information is protected by the Federal Confidentiality of Alcohol and Drug Abuse Patient Records regulations: The Federal rules restrict any use of the information to criminally investigate or prosecute any alcohol or drug abuse patient.[facility] Care Teams (unrecognized sec tion and content) Double Head Machine Operator Relationship Specialty Start Date End Date Godfrey Tariq MD [address] [place] [address] PCP - General Family Medicine 01/08/17 Double Head Machine Operator Relationship Specialty Start Date End Date Godfrey Tariq MD [address] [place] [address] PCP - General Family Medicine 01/08/17 Double Head Machine Operator Relationship Specialty Start Date End Date Godfrey Tariq MD [address] [place] [address] (Fax) PCP - General Family Medicine 09/05/22 Double Head Machine Operator Relationship Specialty Start Date End Date Godfrey Tariq MD [address] [place] [address] (Fax) PCP - General Family Medicine 09/05/22 [...] November 29, 2023 End: November 29, 2023 Double Head Machine Operator Relationship Specialty Start Date End Date Godfrey Tariq MD [address] [place] [phone] (Fax) PCP - General Family Medicine 09/05/22 Double Head Machine Operator Relationship Specialty Start Date End Date Godfrey Tariq MD [address] [place] [address] (Fax) PCP - General Family Medicine 09/05/22 Double Head Machine Operator Relationship Specialty Start Date End Date Godfrey Tariq MD [address] [place] [phone] (Fax) PCP - General Family Medicine 09/05/22 [...] BE BASED ON THE PRIMARY CLINICAL RECORDS. [facility]. provides no warranty or guarantee of the accuracy or completeness of information in this document.
--- NOTE | 2024-07-02 10:56 | XR_ITS ---
The [address] [address] Patient Name: HOLLI RODGERS MRN: [id number] date: 1970 Sex: F Assigned Patient Location: [facility] Current Patient Location: [facility] Accession/Order Number: [id number] Exam Date: 07/02/2024 23:12 Report Date: 07/02/2024 23:14 At the request of: KACY HOOPER DPKristin Procedure: XR foot LT min 3V ? FOOT - 3 views CLINICAL HISTORY: Chronic left foot pain after surgery and fall in March. COMPARISON: Left foot series 05/06/2024 FINDINGS: Screw fixation of a calcaneal fracture grossly unchanged alignment without hardware complication. No focal soft tissue abnormality. No acute fracture is seen. Scattered mild degenerative changes without bony erosions. Bones are grossly demineralized. XR/XR foot LT min 3V IMPRESSION: NO EVIDENCE OF HARDWARE COMPLICATION OR ACUTE PROCESS. Impression dictated by: Rayo Daniels Jr., D.O.07/02/2024 11:14 PM Dictation Location: [facility] Electronically authenticated by: [id number] Y Date: 07/02/2024 23:14
== END 2024-07-02 10:51 | disposition home or self-care (01) ==
LOC: RAD 10:50
PROVIDERS: PCP Family Medicine; Visit Provider Podiatrist Foot & Ankle Surgery
DX: M79.672 Pain in left foot (principal); S92.002D Unspecified fracture of left calcaneus, subsequent encounter for fracture with routine healing
CPT/HCPCS: 73630

== ENCOUNTER 2024-07-16 12:24 | Outpatient (OUT) | payer OTHER, SELFPAY ==
--- OUTSIDE RECORDS SUMMARY | 2024-07-16 12:27 | XMS_ITS | CCD ---
Author Organization [facility]iniSyne Care Team Providers Care Ocular Pathologist Name Role Phone MARCIANO, DR ORTIZ Consulting Unavailable MARCIANO, DR ORTIZ Attending Unavailable MARCIANO, DR ORTIZ Admitting Unavailable MARCIANO, DR ORTIZ Primary Care Unavailable Negrita Bowles Unavailable Diane Marie Unavailable Godfrey Tariq MD Primary Care Provider GODFREY TARIQ Primary Care Unavailab RICHARD Separs Referring Unavailable RICHARD WALKER Attending Unavailable Godfrey Tariq MD Primary Care Provider Yousif Duarte Primary Care Physician Yousif Duarte Attending Unavailable Yousif Duarte Admitting Unavailable MARKY David Attending Provider MARKY David Attending Provider Kacy David Attending Unavailable Kacy David Admitting Unavailable Godfrey Tariq MD Primary Care Provider GODFREY TARIQ Attending Unavailable GODFREY TARIQ Referring [...] Translations: [PENICILLINS] Drug allergy (disorder) 4 [facility] Repository (2 sources) penicillAMINE Drug Allergy Unknown [facility] Other (2 sources) Penicillins Drug Allergy 7 [facility] (10 sources) Amoxicillin Drug Allergy 3 [facility] (10 sources) Penicillin G Drug Allergy 3 Unknown [facility] Medications Current Medications Medication Drug Class(es) Dates Sig (Normalized) Sig (Original) acetaminophen 325 mg / HYDROcodone bitartrate 5 mg oral tablet (7 sources) Opioid Agonist Start: 11-29-2023 take 1 tablet by mouth every four hours as needed for pain HYDROcodone-acetam inophen ([place]) 5-325 MG tablet Take 1 tablet by [...] 1:00am busPIRone hydrochloride 10 mg oral tablet (7 sources) Start: 03-17-2024 End: 06-15-2024 take 1 tablet by mouth once daily busPIRone (Buspar) 10 MG tablet Indications: Anxiety Take 1 tablet (10 mg) by mouth Daily 90 tablet 03/17/2024 Active Start: 01-02-2024 busPIRone (Bus par) 10 [...] 2023 1:00am permethrin 50 mg/ml topical cream (7 sources) Pyrethroid Start: 12-06-2023 permethrin (Elimite) 5 [...] Comment on above: Take by mouth. multivit-min/iron/foli c/kqr563 (HAIR, SKIN AND NAILS ADVANCED ORAL) (2 sources) multivit-min/iro n /folic/lnn900 (HAIR, SKIN AND NAILS ADVANCED ORAL) Take by mouth. 0 Active Comment on above: Take by mouth. multivitamin tablet (2 sources) take 1 tablet by mouth once daily multivitamin tablet Take 1 tablet by mouth once daily. 0 Active Comment on above: Take [address] [facility] once daily. 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; 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 [...] Episodic Other diseases of veins and lymphatics (10 sources) Vascular insufficiency; Translations: [Venous insufficiency (chronic) (peripheral)] Onset: 3 04-19-2023 Episodic Other lower respiratory disease (10 sources) Nodule of lung; Translations: [Solitary pulmonary nodule] Onset: 3 04-19-2023 Episodic Other nutritional; endocrine; and metabolic disorders (10 sources) Overweight; Translations: [Overweight] Onset: 3 04-19-2023 Episodic Other screening for suspected conditions (not mental disorders or infectious disease) (10 sources) Mammography abnormal; Translations: [Other abnormal and inconclusive findings on diagnostic imaging of breast] Onset: 3 04-19-2023 Episodic Sprains and strains (1 source) Sprain of metacarpophalangeal joint of left index finger, initial encounter Onset: 1 Resolved: 1 Episodic Results Test Name Value Interpretation Reference Range Facility XR FOOT LT MIN 3Von 07-03-19 [place] [address] XRay Report Signed Patient: MAGO RODGERS MR#: [id number] : 1970 Acct:[id number] Age/Sex: 54 / F ADM Date: 07/02/24 Loc: RAD Attending Dr: Kacy David D.P.M. Ordering Physician: Kacy David D.P.M. Date of Service: 07/02/24 Procedure(s): XR foot LT min 3V Accession Number(s): [id number] cc: GODFREY TARIQ ; Kacy David D.P.M. [place] [id number] Patient Name: MAGO RODGERS MRN: [id number] date: 1970 Sex: F Assigned Patient Location: [facility] Current Patient Location: RAD Accession/Order Number: [id number] Exam Date: 07/02/2024 23:12 Report Date: 07/02/2024 23:14 At the request of: KACY DAVID DPM Procedure: XR foot LT min 3V ? FOOT - 3 views CLINICAL HISTORY: Chronic left foot pain after surgery and fall in March. COMPARISON: Left foot series 05/06/2024 FINDINGS: Screw fixation of a calcaneal fracture grossly unchanged alignment without hardware complication. No focal soft tissue abnormality. No acute fracture is seen. Scattered mild degenerative changes without bony erosions. Bones are grossly demineralized. XR/XR foot LT min 3V IMPRESSION: NO EVIDENCE OF HARDWARE COMPLICATION OR ACUTE PROCESS. Impression dictated by: Rayo Daniels Jr., D.O.07/02/2024 11:14 PM Dictation Location: [place] [address] Electronically authenticated by: [id number] Y Date: 07/02/2024 23:14 Dictated By: Rayo Daniels M.D. Signed By: 07/02/242315 DD/ 13 TD/TT: Supervisor Vendor Quality: [facility] Radiology, Radiologist, MD - 07/02/2024 [place] [address] XRay Report Signed Patient: MAGO RODGERS MR#: [id number] : 1970 Acct:[id number] Age/Sex: 54 / F ADM Date: 07/02/24 Loc: [facility] Attending Dr: Kacy David D.P.M. Ordering Physician: Kacy David D.P.M. Date of Service: 07/02/24 Procedure(s): XR foot LT min 3V Accession Number(s): [id number] cc: GODFREY TARIQ ; Kacy David D.P.M. The [place] [address] Patient Name: MAGO RODGERS MRN: [facility]:[id number] date: 1970 Sex: F Assigned Patient Location: [facility] Current Patient Location: RAD Accession/Order Number: [id number] Exam Date: 07/02/2024 23:12 Report Date: 07/02/2024 23:14 At the request of: KACY DAVID DPM Procedure: XR foot LT min 3V ? FOOT - 3 views CLINICAL HISTORY: Chronic left foot pain after surgery and fall in March. COMPARISON: Left foot series 05/06/2024 FINDINGS: Screw fixation of a calcaneal fracture grossly unchanged alignment without hardware complication. No focal soft tissue abnormality. No acute fracture is seen. Scattered mild degenerative changes without bony erosions. Bones are grossly demineralized. XR/XR foot LT min 3V IMPRESSION: NO EVIDENCE OF HARDWARE COMPLICATION OR ACUTE PROCESS. Impression dictated by: Rayo Daniels Jr., D.O.07/02/2024 11:14 PM Dictation Location: [place] [address] Electronically authenticated by: [id number] Y Date: 07/02/2024 23:14 Dictated By: Rayo Daniels M.D. Signed By: 07/02/242315 DD/ 13 TD/TT: Supervisor Vendor Quality: [facility] Radiology Study observation (narrative) [facility] XR FOOT LT MIN 3VOrdered By: Radiologist Radiology on 07-02-2024 [facility] Work Phone: [place] 11-29-2023 L Specimen: [id number] Received: 11/29/23 Status: EMIL Hung Num: [id number] Spec Type: Surgical Subm Dr: Kacy David DPM, MS Tissues: A Tendon/Sheath (LT POSTERIOR TIBIAL TENDON) Procedures: HE, Gross/Micro L3 Age/ Patient Sex Location Account Attending Physician Mago Rodgers 53/F LABELL [id number] Kacy David DPM, MS SPEC NUM: [id number] RECD: 11/29/23 STATUS: [facility] NUM: [id number] ELIZA: 11/29/23-[address]: Kacy David DPM, MS ENTERED: 11/29/[address]: [...] tissue. Cut sections reveal unremarkable fibrous surfaces. Tipple Repairer sections are submitted in A1. TW Specimen: [id number] Received: 11/29/23 Status: EMIL Hung Num: [id number] Spec Type: Surgical Subm Dr: Kacy David,DPKristin, MS Tissues: A Tendon/Sheath (LT POSTERIOR TIBIAL TENDON) Procedures: BJORN Gross/Micro L3 Patient: Mago Rodgers [id number] (Continued) Specimen: [id number] Received: 11/29/23 (Continued) Signed (signature on file) Serene Encarnacion MD 12/03/23 1053 Specimen: [id number] Received: 11/29/23 Status: EMIL Abhilash Num: [id number] Spec Type: Surgical Subm Dr: Kacy David,MARKY, MS Tissues: A Tendon/Sheath (LT POSTERIOR TIBIAL TENDON) Procedures: Peter MILAN/Anjelica Bates Patient: Mago Rodgers [id number] (Continued) Specimen: [id number] Received: 11/29/23 (Continued) Microscopic Description Microscopic examinations are performed CPT Codes 19642 Specimen: [id number] Received: 11/29/23 Status: EMIL Hung Num: [id number] Spec Type: Surgical Subm Dr: Kacy David,DPKristin, MS Tissues: A Tendon/Sheath (LT POSTERIOR TIBIAL TENDON) Procedures: Peter MILAN/Anjelica Bates Patient: Mago Rodgers [id number] (Continued) Signed (signature on file) Serene Encarnacion MD 12/03/23 1053 Normal [facility] MR FOOT LEFT W AND [...] Not Available Physician Orderon 07-11-2023 Physician Order [id number] #1.00TIFF Normal [facility] Physician Order [id number] #1.00TIFF Normal [facility] XR CHEST 2 VIEWSon 4 XR [...] SARS-CoV-2 (COVID-19) RNA MANOJ+probe Ql (Unsp spec) [facility] MR FOOT LEFT WO IV [...] Not Available XR ANKLE 2 VIEWS LEFTon - XR ANKLE 2 VIEWS LEFT CLINICAL HISTORY: medial ankle pain left after catching foot. COMPARISON: NONE. LEFT ANKLE FINDINGS: There are no lytic or sclerotic bone lesions. There is no acute fracture or subluxation. There are no radiopaque foreign bodies. IMPRESSION: There are no acute osseous changes. ELECTRONICALLY SIGNED BY: Keith Weir MD Normal Not Available CNPMegha 07-10-2022 [facility] Telephone (RADTSA) MAGO RODGERS ([id number]) 1970 F Date Time Provider Department 07/10/22 [...] for Visit: Future Appointment [256] Care Coordination [1250] Prescriptions as of 07/10/2022 - multivit-min/iron/fo lic/dqu386 (HAIR, SKIN AND NAILS ADVANCED ORAL) Take [...] Status:Closed by VIKTORIA HAMILTON on 07/10/22 [facility] Result Positive [facility] Other XR hand LT min 3V*on 021 XR hand LT min 3V* [facility] Other XR hand LT min 3V* [facility] Other XR hand LT min 3V* [facility] Other XR hand LT min 3V* [place] [address] [facility] Other XR hand LT min 3V* XRay Report [facility] Other XR hand LT min 3V* Signed [facility] Other XR hand LT min 3V* Patient: Mago Rodgers MR#: [id number] [facility] Other XR hand LT min 3V* 5847 [facility] Other XR hand LT min 3V* : 1970 Acct:[id number] [facility] Other XR hand LT min 3V* Age/Sex: 50 / F ADM Date: 03/11/21 [facility] Other XR hand LT min 3V* Loc: XDUCLY Room: Type: [facility] Other XR hand LT min 3V* Attending Dr: Negrita WHARTON [facility] Other XR hand LT min 3V* Ordering Provider: DIO Csatano [facility] Other XR hand LT min 3V* Date of Service: 03/11/21 [facility] Other XR hand LT min 3V* XR/XR hand LT min 3V*: LEFT HAND INJURY [facility] Other XR hand LT min 3V* Copies to: DIO Castano [facility] Other XR hand LT min 3V* LEFT HAND - 3 views [facility] Other XR hand LT min 3V* CLINICAL DATA: Patient got index finger caught in a screen door handle yesterday and has pain at [facility] Other XR hand LT min 3V* the distal second metacarpal and bruising. [facility] Other XR hand LT min 3V* COMPARISON: None [facility] Other XR hand LT min 3V* AP, lateral and oblique views were obtained. There is no evidence of fracture or dislocation. [facility] Other XR hand LT min 3V* There are no significant soft tissue abnormalities. [facility] Other XR hand LT min 3V* XR/XR hand LT min 3V* [facility] Other XR hand LT min 3V* IMPRESSION: [facility] Other XR hand LT min 3V* NO ACUTE BONY INJURY. [facility] Other XR hand LT min 3V* Impression dictated by: Moriah Sears M.D.03/11/2021 5:05 PM [facility] Other XR hand LT min 3V* Dictation Location: [place] [address] [facility] Other XR hand LT min 3V* Transcribed By: [facility] 03/11/21 [facility] Other XR hand LT min 3V* Dictated By: Moriah Sears MD 03/11/21 [facility] Other XR hand LT min 3V* Signed By: [facility] Other XR hand LT min 3V* 03/11/[address] [place] [address] [place]olan Other Vital Signs Date Time Vital Sign Value Performing Clinician Facility 02-19-2024 15:09-0400 Body height 160 cm Godfrey Tariq MD Work Phone: [facility] 02-19-2024 15:09-0400 Body mass index (BMI) [Ratio] 29.41 kg/m2 Godfrey Tariq MD Work Phone: [facility] 02-19-2024 15:09-0400 Body weight 75.3 kg Godfrey Tariq MD Work Phone: [facility] 06-20-2023 16:36-0500 Body height 162.56 cm [facility] 06-20-2023 16:36-0500 Body mass index (BMI) [Ratio] 28.3 kg/m2 [facility] 06-20-2023 16:36-0500 Body temperature 100.2 [degF] [facility] 06-20-2023 16:36-0500 Body weight 74.84 kg [facility] 06-20-2023 16:36-0500 Diastolic blood pressure 95 mm[Hg] [facility] 06-20-2023 16:36-0500 Heart rate 93 /min [facility] 06-20-2023 16:36-0500 Respiratory rate 18 /min [facility] 06-20-2023 16:36-0500 SaO2% (BldA) [Mass fraction] 98 % [facility] 06-20-2023 16:36-0500 Systolic blood pressure 143 mm[Hg] [facility] 06-12-2023 15:27-0500 Body height 160 cm Yousif Duarte DPM Work Phone: [facility] 06-12-2023 15:27-0500 Body mass index (BMI) [Ratio] 29.41 kg/m2 Yousif Duarte DPM Work Phone: [facility] 06-12-2023 15:27-0500 Body weight 75.3 kg Yousif Duarte DPM Work Phone: [facility] 06-12-2023 15:27-0500 Diastolic blood pressure 81 mm[Hg] Yousif Duarte DPM Work Phone: [facility] 06-12-2023 15:27-0500 Heart rate 79 /min Yousif Duarte DPM Work Phone: [facility] 06-12-2023 15:27-0500 Systolic blood pressure 123 mm[Hg] Yousif Duarte DPM Work Phone: [facility] 07-10-2022 10:07-0400 Body temperature 96.69 [degF] Richard Walker MD Work Phone: [facility] 07-10-2022 10:07-0400 Body weight 78.47 kg Richard Walker MD Work Phone: [facility] 07-10-2022 10:07-0400 Diastolic blood pressure 89 mm[Hg] Richard Walker MD Work Phone: [facility] 07-10-2022 10:07-0400 Heart rate 92 /min Richard Walker MD Work Phone: [facility] 07-10-2022 10:07-0400 Respiratory rate 18 /min Richard Walker MD Work Phone: [facility] 07-10-2022 10:07-0400 SaO2% (BldA) [Mass fraction] 100 % Richard Walker MD Work Phone: [facility] 07-10-2022 10:07-0400 Systolic blood pressure 137 mm[Hg] Richard Walker MD Work Phone: [facility] 03-21-2021 12:00-0500 Body height 160.02 cm Diane Ginty Other [facility] Other 03-21-2021 12:00-0500 Body temperature 100.4 [degF] Diane Ginty Other [facility] Other 03-21-2021 12:00-0500 Respiratory rate 18 /min Diane Ginty Other [facility] Other 03-21-2021 12:00-0500 SaO2% (BldA) [Mass fraction] 98 % Diane Ginty Other [facility] Other 03-11-2021 17:05-0500 Body height 160.02 cm Negrita Bowles Other [facility] Other 03-11-2021 17:05-0500 Body mass index (BMI) [Ratio] 27.63 kg/m2 Negrita Bowles Other [facility] Other 03-11-2021 17:05-0500 Body temperature 98 [degF] Negrita Bowles Other [facility] Other 03-11-2021 17:05-0500 Body weight 70.76 kg Negrita Bowles Other [facility] Other 03-11-2021 17:05-0500 Diastolic blood pressure 85 mm[Hg] Negrita Bowles Other [facility] Other 03-11-2021 17:05-0500 Respiratory rate 18 /min Negrita Bowles Other [facility] Other 03-11-2021 17:05-0500 SaO2% (BldA) [Mass fraction] 100 % Negrita Bowles Other [facility] Other 03-11-2021 17:05-0500 Systolic blood pressure 148 mm[Hg] Negrita Bowles Other [facility] Other Encounters Encounter Date Encounter Type Care Provider Facility Start: 07-02-2024 End: 07-02-2024 Clinisync Result Encounter Generic External Data Provider [facility] External Department Unsolicited Start: 07-02-2024 End: 07-02-2024 Clinisync Result Encounter Generic External Data Provider [facility] External Department Unsolicited Start: 04-21-2024 End: 04-21-2024 ambulatory GODFREY TARIQ [...] (Primary Dx) Start: 11-29-2023 End: 11-29-2023 ambulatory Kacy Ramirez [facility] Work Phone: Start: 11-29-2023 End: 11-29-2023 Departed Referred DPM Kacy David Work Phone: [facility] Start: 11-28-2023 End: 11-28-2023 ambulatory DPM Kacy David Work Phone: [facility] Work Phone: Start: 11-28-2023 End: 11-28-2023 Departed Referred DPM Kacy David Work Phone: [facility] Start: 10-31-2023 End: 10-31-2023 ambulatory YOUSIF DUARTE Not Available Start: 10-25-2023 End: 10-25-2023 ambulatory YOUSIF DUARTE Not Available Start: 10-04-2023 End: 10-04-2023 ambulatory YOUSIF DUARTE Not Available Start: 09-27-2023 End: 09-27-2023 ambulatory YOUSIF DUARTE Not Available Start: 09-27-2023 End: 09-27-2023 ambulatory YOUSIF Jorge Luis DUARTE Not Available Start: 09-07-2023 End: 09-07-2023 ambulatory YOUSIF Jorge Luis DUARTE Not Available Start: 08-24-2023 End: 08-24-2023 ambulatory YOUSIF Jorge Luis DUARTE Not Available Start: 08-10-2023 End: 08-10-2023 ambulatory YOUSIF DUARTE Not Available Start: 07-27-2023 End: 07-27-2023 ambulatory YOUSIF Jorge Luis DUARTE Not Available Start: 07-17-2023 End: 07-17-2023 ambulatory ASIM BRITTON Not Available Start: 07-11-2023 End: 07-11-2023 Lab Drop off Yousif Duarte [facility] Start: 07-11-2023 End: 07-12-2023 ambulatory Yousif Duarte Facility:[facility] Start: 07-02-2023 End: 07-02-2023 ambulatory GODFREY TARIQ Not Available Start: 06-28-2023 End: 06-28-2023 ambulatory YOUSIF DUARTE Not Available Start: 06-27-2023 End: 06-27-2023 ambulatory YOUSIF Jorge Luis DOMO Not Available Start: 06-20-2023 End: 06-20-2023 ambulatory [facility] Work Phone: Start: 06-20-2023 End: 06-20-2023 Patient encounter procedure [facility] Work Phone: Start: 06-20-2023 End: 06-20-2023 ambulatory EDSHARA BUCKNERYER Not Available Start: 06-12-2023 End: 06-12-2023 Office outpatient visit 15 minutes Yousif Duarte DPM Work Phone: [facility] Comment on above: Accessory navicular bone [...] Available Start: 05-10-2023 End: 05-10-2023 ambulatory YOUSIF Kang DOMO Not Available Start: 05-03-2023 End: 05-03-2023 ambulatory YOUSIF DUARTE Not Available Start: 04-26-2023 End: 04-26-2023 ambulatory GODFREY TARIQ Not Available Start: 04-25-2023 End: 04-25-2023 ambulatory GODFREY TARIQ Not Available Start: 07-10-2022 Telephone encounter Richard Walker MD Work Phone: Radiation Oncology Comment on above: Future Appointment; Care Coordination Start: 07-10-2022 End: 07-10-2022 ambulatory GODFREY TARIQ Facility:[facility] Start: 07-10-2022 End: 07-10-2022 Patient encounter procedure Richard Walker MD Work Phone: Radiation Oncology Comment on above: Malignant neoplasm o f central portion of right breast in female, estrogen receptor positive (HCC) (Primary Dx) Start: 03-22-2021 End: 03-22-[address] GODFREY TARIQ Facility: Start: 03-21-2021 End: 03-21-2021 ambulatory Diane Marie [facility] Start: 03-21-2021 Office outpatient vi sit 15 minutes Diane Marie [facility] Start: 03-11-2021 End: 03-11-2021 ambulatory Negrita Bowles Other [facility] Start: 03-11-2021 Office outpatient ne w 20 minutes Negrita Bowles [facility] Procedures Date Procedure Procedure Detail Performing Clinician Start: 07-02-2024 XR FOOT LT MIN 3V Gener ic External Data Provider Start: 06-20-2023 POC COVID/FLU/RSV Start: 07-04-2022 Mammography Richard Walker MD Work Phone: Start: 06-19-2022 Colonoscopy Yousif lin DPM Work Phone: Plan of Treatment Date Care Activity Detail Author Start: 06-19-2032 Screening for malign ant neoplasm of colon [facility] Start: 01-07-2025 Screening for malign ant neoplasm of cervix [facility] Start: 02-19-2024 End: 02-19-2024 Patient encounter procedure 02/19/2024 3:00 PM EDT Office Visit [facility] [address] [id number] Godfrey Tariq MD [address] [place] [address] (Fax) Arrived [facility] Comment on above: Arrived Start: 12-30-2023 Influenza vaccination Influenza Vacc ine (#1) [facility] Start: 07-06-2023 End: 08-09-2023 Diagnostic mammography computer-aided detcj bi [facility] Rad[facility] Routine Malignant neoplasm of central portion of right breast in female, estrogen receptor positive (HCC) Expected: 07/06/2023, Expires: 08/09/2023 [facility] Work Phone: Comment on above: Expected: 07/06/2023 , Expires: 08/09/2023 Start: 07-05-2023 Mammography MAMMOGRAM [facility] Start: 06-12-2023 End: 06-12-2023 Patient encounter procedure 06/12/2023 3:30 PM EST Office Visit [facility] [address] [place] [address] Yousif Duarte DPM [address] [facility] [address] [place] [address] [facility] Start: 12-29-2022 Influenza vaccination Influenza Vacc ine (#1) [facility] Start: 04-30-2022 DEPRESSION ASSESSMENT DEPRESSION ASS ESSMENT [facility] Start: 12-29-2021 Influenza vaccination INFLUENZA (#1) [facility] Start: 10-15-2020 COVID-19 VACCINE (3 - Booster for Moderna series) COVID-19 VACCINE (3 - Booster for Moderna series) [facility] Start: 2018 SHINGRIX VACCINE (1 of 2) SHINGRIX VACCINE (1 of 2) [facility] Start: 2013 COLOGUARD (FIT-DNA) COLOGUARD (FIT-D NA) [facility] Start: 2013 Colonoscopy COLONOSCOPY [facility] Start: 2013 COLORECTAL CANCER SCREENING COLORECTAL CANCER SCREENING [facility] Start: [address] COLONOGRAPHY [facility] Start: 2013 DIABETES SCREEN DIABETES SCREEN [facility] Start: 2013 FECAL OCCULT BLOOD FECAL OCCULT BLOO D [facility] Start: 2013 LIPID SCREEN LIPID SCREEN [facility] Start: 2013 SIGMOIDOSCOPY SIGMOIDOSCOPY [facility] Start: 1998 HPV TESTING HPV TESTING [facility] Start: 1989 PAP TESTING PAP TESTING [facility] Start: 1989 Screening for malign ant neoplasm of cervix Pap Smear [facility] Start: 1987 Urine microalbumin profile DTAP,TDAP,TD (1 - Tdap) [facility] Start: 1986 HEPATIT[facility] Start: 1986 HIV SCREENING HIV SCREENING [facility] Start: 1970 HEPATITIS B (1 of 3 - 3-dose series) HEPATITIS B (1 of 3 - 3-dose series) [facility] Start: 1970 Screening for malign ant neoplasm of colon [facility] Immunizations Immunization Date Immunization Notes Care Provider Fa cility 02-08-2015 influenza, injectabl e, quadrivalent, preservative free Yousif Duarte DPM Work Phone: [facility] 02-08-2015 influenza virus vacc ine, unspecified formulation Yousif Duarte DPM Work Phone: [facility] 05-24-2014 influenza, injectabl e, quadrivalent, contains preservative Yousif Duarte DPM Work Phone: [facility] Payers Date Payer Category Payer Private Health Insurance [id number] 2022 Unknown [employer] [id number] 2022-Present [phone] [address] [address] [place] [address] [id number] 2022 Unknown [id number] 1970 Unknown [id number]. [id number] 1970 Unknown [id number] [id number]. 2.727 1968 Unknown [id number]. 2.9 1968 Unknown [id number]. 2.1259 1968 Unknown [id number] [id number]. 2.9 1968 Unknown [id number] [id number]. 2.1259 1968 Unknown [id number] [id number]. 2.1259 1968 Unknown [id number] 2.16.840.1.300596.3.579. 2.1259 1968 Unknown [id number] 2.16.840.1.706579.3.579. 2.1259 1968 Unknown [id number] 2.16.840.1.779601.3.579. 2.1259 1968 Unknown [id number] 2.16.840.1.419788.3.579. 2.1259 1968 Unknown [id number] 2.16.840.1.860621.3.579. 2.1258 1968 Unknown [id number] 2.16.840.1.710209.3.579. 2.1258 1968 Unknown [id number] 2.16.840.1.036901.3.579. 2.1258 1968 Unknown [id number] 2.16.840.1.723941.3.579. 2.1258 1968 Unknown [id number] 2.16.840.1.858263.3.579. 2.1258 1968 Unknown [id number] 2.16.840.1.362111.3.579. 2.1258 1968 Unknown [id number] 2.16.840.1.592896.3.579. 2.1258 1968 Unknown [id number] 2.16.840.1.818432.3.579. 2.1258 1968 Unknown [id number] 2.16.840.1.264300.3.579. 2.1258 1968 Unknown [id number] 2.16.840.1.003768.3.579. 2.1258 1968 Unknown [id number] 2.16.840.1.616298.3.579. 2.1258 1968 Unknown [id number] 2.16.840.1.135812.3.579. 2.1258 1968 Unknown [id number] 2.16.840.1.107458.3.579. 2.1258 1968 Unknown [id number] 2.16.840.1.694408.3.579. 2.1258 1968 Unknown [id number] 2.16.840.1.456634.3.579. 2.1258 1968 Unknown [id number] 2.16.840.1.455890.3.579. 2.1258 1959 Unknown [id number] Self-pay Self Pay [id number] Social History Date Type Detail Facility Unknown if ever smoked [facility] Other Start: 04-19-2023 End: 04-21-2024 Sex Assigned At [facility] Start: 01-12-2017 End: 10-31-2023 Tobacco smoking status NHIS Ex-smoker [facility] Start: 04-10-1997 End: 04-19-1998 History of tobacco use Current smoker [facility] Start: 04-10-1997 End: 04-19-1998 History of tobacco use Cigarette Smoker [facility] Start: 01-12-2017 End: 10-31-2023 Tobacco use and exposure Smokeless tobacco non-user [facility] Start: 05-30-2021 Alcohol intake Current non-drinker of alcohol (finding) [facility] Start: 01-10-2017 Tobacco Comment quit but used to smoke socially [facility] Start: 1970 Sex Assigned At Not on file [facility] Start: 04-19-2023 End: 06-20-2023 Tobacco smoking status IAIS Never smoked tobacco [facility] Start: 05-30-2023 End: 06-12-2023 Alcohol intake Ex-drinker (finding) [facility] Start: 04-19-2023 End: 04-21-2024 History of Social function [facility] Within the last year , have you been afraid of your partner or ex-partner? No [facility] Do you belong to any clubs or organizations such as holiness groups, unions, fraternal or athletic groups, or [...] got money to buy more. Never true [facility] Start: 04-25-2023 Alcohol Comment Caffeine intake: 2-3 cups per day coffee, soda/pop [facility] Start: 1970 Sex Assigned At Female [facility] Tobacco smoking status No Smokin g Status Entered [facility] Start: 11-29-2023 End: 02-19-2024 Alcoholic beverage intake Lifetime non-drinker (finding) [facility] Do you feel stress - tense, restless, nervous, or anxious, or unable to sleep at night because your mind is troubled all the time - these days [OSQ] To some extent [facility] Clinical Notes 03-11-2021 to 04-21-2024 [...] by mouth Daily 90 tablet 0 HYDROcodone-acetaminophen ([place]) 5-325 MG tablet Take 1 tablet by [...] mL; Refill: 0 documented in this encounter [facility] 02-19-2024 History of Presen t illness Narrative [...] by mouth Daily) 90 tablet 0 HYDROcodone-acetaminophen ([place]) 5-325 MG tablet Take 1 tablet by [...] tablet; Refill: 0 documented in this encounter [facility] 01-02-2024 History of Presen t illness Narrative [...] to Visit Medication Sig Dispense Refill HYDROcodone-acetaminophen ([place]) 5-325 MG tablet Take 1 tablet by [...] tablet; Refill: 0 documented in this encounter [facility] 06-12-2023 History of Presen t illness Narrative [...] [place] History of breast cancer Migraine headache (CMS/HCC) Nodule of chest wall Skin cancer 2008 [...] min Stress: Stress Concern Present (04/19/2023) [place] [employer] - Occupational Stress Questionnaire Feeling of Stress : Rather much Social Connections: Socially Integrated (04/19/2023) Social Connection and Isolation Panel [NHANES] Frequency of Communication with Friends and Family: More than three times a week Frequency of Social Gatherings with Friends and Family: Twice a week Attends [employer] Services: 1 to 4 times per year [...] Patient may continue with conservative treatments including kxch-cou-lssyfro anti-inflammatories and other treatments suggested today. Patient may want to be scheduled for surgical intervention in the near future. Patient be rescheduled for a modified Kidner procedure to the left foot with tendon anchor in the near future Yousif Duarte DPM documented in this encounter [facility] 07-10-2022 History of Presen t illness Narrative Radiation Oncology - Follow Up Note PATIENT NAME: Mago Rodgers PATIENT DIAGNOSIS/PATIENT IDENTIFICATION: Ms. 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 This document has been created with the use of voice recognition technology. It may contain inaccuracies, misspellings, inaccurate syntax or inappropriate word context that are a result of the inadequacies/shortcomings of said technology/software. documented in this encounter [facility] 07-10-2022 Miscellaneous Notes Formattin g of this [...] Viktoria Hamilton RN documented in this encounter [facility] 03-21-2021 Evaluation note Encounter Date Diagnosis Assessment [...] instructions given in writting by [facility] document [facility] Other 11-12-2021 Evaluation note* Encounter Date Diagnosis [...] Feb, Other Buddying tape material was printed [facility] Other Chief complaint+Reason for visit Narrative* Chief Complaint Cough, congestion Reason for Visit Contact with and (bailey spected) exposure to covid-19 [facility] Work Phone: Evaluation + Plan note No data available for this section [facility] Diagnosis Malignant neoplasm of central portion of right breast in female, estrogen receptor positive (HCC)- Primary [facility] Diagnosis Accessory navicular bone of left foot- Primary Posterior tibial tendinitis of left leg documented in this encounter [facility]* Diagnosis Onset Date Resolution Status Contact with and (suspected) exposure to covid-19 noneactive [facility] Work Phone: Evaluation noteNo assessment information available [facility] Work Phone: Evaluation note* Diagnosis Acute vaginitis- Primary Unspecified vaginitis and vulvovaginitis Bilateral impacted cerumen Impacted cerumen documented in this encounter [facility]* Diagnosis Anxiety- Primary Anxiety state, unspecified documented in this encounter [facility]* Diagnosis COVID-19- Primary Acute cough [facility] - Reported* Type Description Date Medical History Depression Medical History Basal Cell Carcinoma Medical History breast cancer Surgical History 1994 Surgical History Skin cancer removed (back & ramin ek) Surgical History lumpectomy, right breast Hospitalization History See past surgical hx [facility] Other Hospital Discharge instructions No data available for this section [facility] No data available for this section [facility] (narrative)* Diagnostic Procedure Only (Routine) - Pending Review Specialty Diagnoses / Procedures Referred By Ally jenkins Referred To Contact [facility] Diagnoses Malignant neoplasm of central portion of right breast in female, estrogen receptor positive (HCC) Procedures DANII DIAGNOSTIC BILAT DIAGNOSTIC MAMMOGRAPHY COMPUTER-AIDED DETCJ Richard Lizarraga MD [address] [place] [address] [place] [address] [facility] [address] [place] [address] Referral ID Status Reason Start Date Expiration Date Visits Requested Visits Authorized [id number] Pending Review Auto-Generat ed Referral 07/06/2023 08/09/2023 1 1 [facility] Summary Purpose Family History Relationship Condition Age [...] and content) DATE CREATED AUTHOR 06/18/2021 [facility] DATE CREATED AUTHOR AUTHOR'S ORGANIZ ATION 07/11/2022 [facility] DATE CREATED AUTHOR AUTHOR'S ORGANIZ ATION 07/13/2023 [facility] DATE CREATED AUTHOR AUTHOR'S ORGANIZ ATION 12/04/2023 [facility] DATE CREATED AUTHOR AUTHOR'S ORGANIZ ATION 04/23/2024 [facility] dical Specialists EPIC REASON FOR VISIT (unrecogniz ed section and content) Reason Comments Future Appointment Care Coordination Reason Comments Breast Cancer Specialty Diagnoses / Procedures Referred By Ally jenkins Referred To Contact Radiation Oncology / [facility] Diagnoses Follow-up exam 1 Yr Follow UP Procedures REFERRAL TO [facility] FINANCIAL COUNSELOR OFFICE/OUTPATIENT ESTABLISHED HIGH MDM 40-54 MIN OFFICE/OUTPATIENT ESTABLISHED MOD MDM 30-39 MIN EST PATIENT Richard Walker MD [address] [place] [place] [address] Richard Walker MD [address] [place] [address] [place] [address] Referral ID Status Reason Start Date Expiration Date V isits Requested Visits Authorized [id number] Closed Financial Clearance Required - OON Payor [...] or prosecute any alcohol or drug abuse patient.[facility] the event this information is protected by the Federal Confidentiality of Alcohol and Drug Abuse Patient Records regulations: The Federal rules restrict any use of the information to criminally investigate or prosecute any alcohol or drug abuse patient.[facility] Teams (unrecognized sec tion and content) Ocular Pathologist Relationship Specialty Start Date End Date Godfrey Tariq MD [address] [facility] [place] [address] (Fax) PCP - General Family Medicine 01/08/17 Ocular Pathologist Relationship Specialty Start Date End Date Godfrey Tariq MD [address] [place] [address] (Fax) PCP - General Family Medicine 01/08/17 Ocular Pathologist Relationship Specialty Start Date End Date Godfrey Tariq MD [address] [place] [address] (Fax) PCP - General Family Medicine 09/05/22 Ocular Pathologist Relationship Specialty Start Date End Date Godfrey Tariq MD [address] [place] [address] (Fax) PCP - General Family Medicine 09/05/22 [...] Team Status: Inactive Member Role Status Dates Kacy David DPM MS Attending Provider Active Start: November 28, 2023 End: November 28, 2023 Team Status: Inactive Member Role Status Dates Kacy David DPM MS Attending Provider Active Start: November 29, 2023 End: November 29, 2023 Ocular Pathologist Relationship Specialty Start Date End Date Godfrey Tariq MD [address] [place] [phone] (Fax) PCP - General Family Medicine 09/05/22 Ocular Pathologist Relationship Specialty Start Date End Date Godfrey Tariq MD [address] [place] [address] (Fax) PCP - General Family Medicine 09/05/22 Ocular Pathologist Relationship Specialty Start Date End Date Godfrey Tariq MD [address] [place] [address] PCP - General Family Medicine 09/05/22 Ocular Pathologist Relationship Specialty Start Date End Date Godfrey Tariq MD [address] [facility] [address] [place] [address] PCP - General Family Medicine 09/05/22 Goals [...] BE BASED ON THE PRIMARY CLINICAL RECORDS. [facility]. provides no warranty or guarantee of the accuracy or completeness of information in this document.
== END 2024-07-16 12:25 | disposition home or self-care (01) ==
LOC: MRI 12:24
PROVIDERS: PCP Family Medicine; Visit Provider Podiatrist Foot & Ankle Surgery
DX: S93.402A Sprain of unspecified ligament of left ankle, initial encounter (principal)
CPT/HCPCS: 73721